=== PATIENT | female | born 2000 | race Hispanic/Latino ===

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

== ENCOUNTER 2018-01-04 21:28 | Emergency (ER) | payer MEDICAID ==
[2018-01-04 21:43] VITALS: BP 103/72
--- NOTE | 2018-01-04 22:23 | XRay Report ---
FINAL REPORT PROCEDURE: XR CHEST ROUTINE 2V TECHNIQUE: PA and lateral chest radiographs were obtained. CPT 74682 HISTORY: cough COMPARISON: No prior studies are available for comparison. FINDINGS: Heart: Normal. Mediastinum/Vessels: Normal. Lungs/Pleural space: Normal. Bony thorax: No acute osseous abnormality. Other: IMPRESSION: Normal examination.
--- NOTE | 2018-01-04 22:36 | Emergency Department Report ---
Minor Respiratory - HPI Chief Complaint: Upper Respiratory Infection Stated Complaint: FLU LIKE SYMPTOMS Time Seen by Provider: 01/04/18 22:21 Duration: 2 Days Pain Location: Nose (congestion) Severity: moderate Minor Respiratory: Yes Rhinorrhea, Yes Sore Throat, Yes Able to Tolerate Fluids , Yes Ear Pain, Yes Cough, Yes Sick Contacts, Yes Fever, No Hemoptysis, No Chest Pain, No Shortness of Breath Other History: This is a 17 y.o. female that presents with cough, fever, body aches, and congestion for 2 days. 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 She had one episode of diarrhea today, that has now resolved. She taking tylenol cold and flu medication which help for for 4 hours, then symptoms return. She decided to come in because she have 3 small children at home and didn't want to pass something to them. Denies SOB, chest pain, nausea/ vomiting, dizziness, and headache. ED Review of Systems ROS: Stated complaint: FLU LIKE SYMPTOMS Other details as noted in HPI Constitutional: chills, fever, malaise ENT: throat pain, congestion. denies: ear pain, dental pain, hearing loss, epistaxis Respiratory: cough. denies: shortness of breath, wheezing Cardiovascular: denies: chest pain, palpitations, dyspnea on exertion, edema, syncope Gastrointestinal: diarrhea (once this morning). denies: abdominal pain, nausea , vomiting Musculoskeletal: myalgia (generlized body aches). denies: back pain, joint swelling, arthralgia Neurological: denies: headache, weakness, numbness, paresthesias Psychiatric: denies: anxiety, depression ED Past Medical Hx - Past Medical History Hx Hypertension: No Hx Congestive Heart Failure: No Hx Diabetes: No Hx Deep Vein Thrombosis: No Hx Renal Disease: No Hx Sickle Cell Disease: No Hx Seizures: No Hx Asthma: No Hx COPD: No Hx HIV: No - Surgical History Past Surgical History?: No - Social History Smoking Status: Never Smoker Substance Use Type: None - Medications Home Medications: Home Medications Medication Instructions Recorded Confirmed Last Taken Type Acetaminophen [Non-Aspirin] 325 mg PO Q4HR 09/24/14 09/20/15 09/16/14 15:00 History 325mg Pnv,Calcium 72/Iron/Folic Acid 1 tab PO DAILY 09/24/14 09/20/15 09/23/14 08:00 History [Pnv Plus Multivit Tab] 1 tab Ibuprofen [Motrin 800 MG tab] 800 mg PO Q6H PRN #30 tablet 09/26/14 09/20/15 Unknown Rx oxyCODONE /ACETAMINOPHEN [Percocet 1 tab PO Q4HR #30 tablet 09/26/14 09/20/15 Unknown Rx 5/325 mg] Ibuprofen [Motrin 800 MG tab] 800 mg PO TID PRN #30 tablet 09/19/15 Unknown Rx oxyCODONE /ACETAMINOPHEN [Percocet 1 tab PO Q4HR #30 tablet 09/19/15 Unknown Rx 5/325 mg] Ibuprofen [Motrin 600 MG tab] 600 mg PO Q8H PRN #30 tablet 07/05/17 Unknown Rx Multivitamin with Iron 1 each PO DAILY #30 tablet 07/05/17 Unknown Rx [Multivitamins with Iron] oxyCODONE /ACETAMINOPHEN [Percocet 1 tab PO Q6HR PRN #30 tablet 07/05/17 Unknown Rx 5/325] Benzonatate 200 mg PO TID PRN #20 capsule 01/05/18 Unknown Rx Fluticasone [Flonase] 1 spray NS QDAY #1 bottle 01/05/18 Unknown Rx Minor Respiratory Exam - Exam General: Vital signs noted. No distress. Alert and acting appropriately. HEENT: Yes Pharyngeal Erythema, Yes Moist Mucous Membranes, Yes Rhinorrhea ( turbinates mildly congested with clear discharge), No Pharyngeal Exudates, No Conjuctival Injection, No Frontal Tenderness, No Maxillary Tenderness Ear: Neither TM Bulge, Neither TM Erythema, Neither EAC Pain, Neither EAC Discharge Neck: Yes Supple, No Adenopathy Lungs: Yes Good Air Exchange, Yes Cough, No Wheezes, No Ronchi, No Stridor, No Labored Respirations, No Retractions, No Use of Accessory Muscles, No Other Abnormal Lung Sounds Heart: Yes Regular, No Murmur Abdomen: Yes Normal Bowel Sounds, No Tenderness, No Peritoneal Signs Skin: No Rash, No Edema Neurologic: Alert and oriented, no deficits. Musculoskeletal: Unremarkable. ED Course Vital Signs 01/04/18 21:39 Temperature 99.2 F Pulse Rate 100 H Respiratory 16 Rate Blood Pressure 103/72 O2 Sat by Pulse 96 Oximetry ED Medical Decision Making - Radiology Data Radiology results: report reviewed Normal CXR. - Medical Decision Making This is a 17 y.o. female that presents with URI symptoms. Patient examined by me and stable. No distress noted. Vitals stable. CXR obtained and read by radiologist and normal. Rapid strep and flu negative. Physical findings susceptible of Nasopharyngitis. Discharged home. Encouraged to do supportive care for URI. Start flonase and benzonatate, continue OTC cold and flu medication. Follow up with PCP in 2-3 days if symptoms are not improved. Critical care attestation.: If time is entered above; I have spent that time in minutes in the direct care of this critically ill patient, excluding procedure time. ED Disposition Clinical Impression: URI (upper respiratory infection) Qualifiers: URI type: acute nasopharyngitis (common cold) Qualified Code(s): J00 - Acute nasopharyngitis [common cold] Disposition: TO HOME OR SELFCARE Is pt being admited?: No Does the pt Need Aspirin: No Condition: Stable Instructions: Upper Respiratory Infection (ED), Cold Symptoms (ED) Additional Instructions: Increase fluid intake and rest. Wash hands frequently. Continue taking tylenol or ibuprofen to control fever. F/U with Primary Care Provider in 2-3 days. Return to ER if fever, SOB, or difficulty breathing after 48 hours of supportive care. Prescriptions: Benzonatate 200 mg PO TID PRN #20 capsule PRN Reason: Cough Fluticasone [Flonase] 1 spray NS QDAY #1 bottle Referrals: MANUEL BLACK MD [Referring] - 3-5 Days [facility] [Outside] - 3-5 Days [facility] [Outside] - 3-5 Days Time of Disposition: 00:36 Print Language: CAMBODIAN
== END 2018-01-05 00:55 | disposition home or self-care (01) ==
LOC: ED 21:28
DX: J00 Acute nasopharyngitis [common cold] (principal); M79.1 Myalgia; R50.9 Fever, unspecified
CPT/HCPCS: 71046; 87116; 87400; 87430

== ENCOUNTER 2018-12-15 14:46 | Outpatient (CLI) | payer MEDICAID | END 2018-12-15 15:40 | disposition home or self-care (01) | LOC: LAB 14:46 → TRG 14:46 | PROVIDERS: ATTEND Obstetrics & Gynecology | DX: O26.893 Other specified pregnancy related conditions, third trimester (principal); Z67.41 Type O blood, Rh negative; Z3A.28 28 weeks gestation of pregnancy | CPT/HCPCS: 86850; 86900; 86901; 96372; J2790 ==

== ENCOUNTER 2019-02-27 22:40 | Outpatient (CLI) | payer MEDICAID ==
[2019-02-28 00:01] VITALS: BP 124/68
--- NOTE | 2019-02-28 11:43 | Progress Note ---
Assessment and Plan A: at 38 weeks, 5 days gestation. Not in active labor. Reactive NST. Negative SSE and negative fern test. Previous LTCS, scheduled for repeat C/S on 03/04/19. Gestational diabetes, diet controlled. P: Consulted with Dr. Horn re: this patient and informed him of all patient's complaints and results of exam. Dr. Horn gave order to discharge patient to home. Discussed with patient daily movement counting, signs of labor, warning signs of late . Pt. to keep scheduled pre-op appt. for upcoming repeat LTCS. Subjective - Subjective Date of service: 02/27/19 Principal diagnosis: at 38 5/7 weeks; leukorrhea of Interval history: 19 year old female presents to rule out labor and possible leaking of water. She states she think she "peed" on herself several hours ago. Denies any further discharge or leaking. Did not have to change a pad or change clothes. Patient denies vaginal bleeding. Patient reports active movement. Pt. reports some Gordon Patel contractions but states they do not hurt and are irregular. Pt. denies any regular contractions. Patient denies any abdominal trauma or constant abdominal pain. Patient reports intermittent lower pelvic pain in distribution of round ligaments; states it is not constant and seems to get better when she lies down. Pt. has a history of previous C/S times 3 and is scheduled for a repeat delivery this coming Saturday. Patient reports: movement normal Objective - Vital Signs Vital Signs: Vital Signs - 12hr 02/27/19 02/27/19 02/27/19 23:44 23:47 23:49 Pulse Rate 102 H 101 H 92 H Blood Pressure O2 Sat by Pulse 95 94 95 Oximetry 02/27/19 02/27/19 02/27/19 23:52 23:54 23:59 Pulse Rate 93 H 92 H 92 H Blood Pressure O2 Sat by Pulse 94 96 96 Oximetry 02/28/19 02/28/19 00:00 00:04 Pulse Rate 91 H 94 H Blood Pressure 124/68 O2 Sat by Pulse 96 Oximetry - Exam Narrative Exam: Sterile speculum exam performed: no pooling noted, no bleeding noted; thick white vaginal discharge noted; cervix appears closed and thick; fern test negative. Abdomen: Present: normal appearance, soft, other (no tenderness elicited on exam; abdomen is soft, no pain on scar during exam; fetus moving well). Absent: distention, tenderness, guarding, rigidity Uterus: Present: fundal height above umbilicus. Absent: tenderness FHR: category 1 (Reactive NST) Uterine Contraction Monitor Mode: External Cervical Dilatation: 0 Cervical Effacement Percentage: 20 station: -4 Uterine Contraction Pattern: Irregular Uterine Contraction Intensity: Mild (Brief, mild, infreqeunt contraction noted; no regular contractions noted per monitor or palpated) Extremities: normal - Labs Labs: Abnormal Labs 02/27/19 23:10 POC Glucose 126 H Laboratory Results - last 24 hr 02/27/19 23:10 POC Glucose 126 H
== END 2019-02-28 00:15 | disposition home or self-care (01) ==
LOC: TRG 22:40
PROVIDERS: ATTEND Obstetrics & Gynecology
DX: O47.1 False labor at or after 37 completed weeks of gestation (principal); O24.419 Gestational diabetes mellitus in pregnancy, unspecified control; O99.513 Diseases of the respiratory system complicating pregnancy, third trimester; J45.909 Unspecified asthma, uncomplicated; Z3A.38 38 weeks gestation of pregnancy
CPT/HCPCS: 59025; 82962

== ENCOUNTER 2019-03-04 09:07 | Inpatient (IN) | payer MEDICAID ==
[2019-03-04] MEDS: LACTATED RINGERS 1,000 ML IV SCH ×2 (09:40→11:02)
[2019-03-04 09:55] LABS: Basophils # (Auto) 0.1 K/mm3 (0.0-0.1); Basophils % (Auto) 0.5 % (0.0-1.8); Eosinophils # (Auto) 0.2 K/mm3 (0.0-0.4); Eosinophils % (Auto) 1.4 % (0.0-4.3); Hematocrit 42.3 % (30.3-42.9); Hemoglobin 14.3 gm/dl (10.1-14.3); Lymphocytes # (Auto) 3.3 K/mm3 (1.2-5.4); Lymphocytes % (Auto) 22.5 % (13.4-35.0); Mean Corpuscular HGB Conc 34 % (30-34); Mean Corpuscular Volume 85 fl (79-97); Monocytes # (Auto) 0.9 K/mm3 (0.0-0.8); Monocytes % (Auto) 6.1 % (0.0-7.3); Platelet Count 200 K/mm3 (140-440); Red Blood Count 4.96 M/mm3 (3.65-5.03); Red Cell Distribution Width 15.7 % (13.2-15.2)
[2019-03-04] MEDS ORDERED: PITOCin/NS 20 UNIT/1000ML DRIP 20 UNITS/1,000 ML BAG IV SCH ×2 (10:00→14:07)
[2019-03-04] MEDS ORDERED: BICITRA PO NR (10:00)
[2019-03-04] MEDS ORDERED: ANCEF/STERILE WATER 2 GM/20 ML 2 GM/20 ML SYRINGE IV NR (10:00)
[2019-03-04] MEDS ORDERED: REGLAN IV NR (10:00)
[2019-03-04] MEDS ORDERED: PEPCID IV NR (10:00)
[2019-03-04] MEDS ORDERED: ZOFRAN IV PRN ×2 (10:08→13:54)
[2019-03-04] MEDS ORDERED: NARCAN 0.4 MG/1 ML IV PRN ×2 (10:08→13:54)
[2019-03-04] MEDS ORDERED: MORPHINE IV PRN ×3 (10:08→13:54)
[2019-03-04] MEDS ORDERED: PHENERGAN PO PRN (10:08)
[2019-03-04] MEDS ORDERED: PHENERGAN PR PRN (10:08)
--- NOTE | 2019-03-04 10:08 | Anesthesia Consultation ---
Anesthesia Consult and Med Hx Date of service: 03/04/19 - Airway Anesthetic Teeth Evaluation: Good ROM Head & Neck: Adequate Mental/Hyoid Distance: Adequate Mallampati Class: Class II Intubation Access Assessment: Good - Pulmonary Exam CTA: Yes - Cardiac Exam Cardiac Exam: RRR - Pre-Operative Health Status ASA Pre-Surgery Classification: ASA2 Proposed Anesthetic Plan: Epidural, Spinal - Pulmonary Hx Asthma: Yes (last attack 6 yrs ago) COPD: No Hx Pneumonia: No - Cardiovascular System Hx Hypertension: No - Central Nervous System Hx Seizures: No Hx Psychiatric Problems: No - Endocrine Hx Renal Disease: No Hx End Stage Renal Disease: No Hx Non-Insulin Dependent Diabetes: Yes Hx Hypothyroidism: No Hx Hyperthyroidism: No - Hematic Hx Anemia: No Hx Sickle Cell Disease: No - Other Systems Hx Alcohol Use: No Hx Obesity: Yes
--- NOTE | 2019-03-04 10:08 | Anesthesia Day of Surgery ---
Anesthesia Day of Surgery - Day of Surgery Patient Examined: Yes Patient H&P Reviewed: Yes Patient is NPO: Yes
--- NOTE | 2019-03-04 10:47 | History and Physical Report ---
History of Present Illness Date of examination: 03/04/19 Date of admission: 03/04/19 09:07 Chief complaint: SIUP at 39 weeks and 3 days not in labor. Previous C/section x 3. Unwanted fertility. A1GDM Obesity. Rh negative type. History of present illness: Patient is a 19 year old , LMP, EDC 03/08/19 at 39 weeks and 3 days gestation who is admitted for elective repeat C/section and bilateral tubal ligation. She complains of having irregular contractions, but denies any fluid leakage or bleeding. tracing is CAT1. She has A1DGM. Her blood glucose have been controlled. Past History Past Surgical History: section Family/Genetic History: none Social history: no significant social history - Obstetrical History Expected Date of Delivery: 03/08/19 Actual Gestation: 39 Week(s) 3 Day(s) : 4 Para: 3 Number of Living Children: 3 Medications and Allergies Allergies Allergy/AdvReac Type Severity Reaction Status Date / Time No Known Allergies Allergy Verified 09/01/18 11:37 Home Medications Medication Instructions Recorded Confirmed Last Taken Type 21/Iron Fu/Folic Acid 1 each PO DAILY #30 tablet 09/01/18 Unknown Rx [ Complete Caplet] Active Meds: Active Medications Citric Acid/Sodium Citrate (Bicitra) 30 ml PO ONCE NR Stop: 03/04/19 16:00 Famotidine (Pepcid) 20 mg IV ONCE NR Stop: 03/04/19 16:00 Hydromorphone HCl (Dilaudid) 0.5 mg IV Q4H PRN PRN Reason: breakthrough pain > 7/10 Cefazolin Sodium (Ancef/Sterile Water 2 Gm/20 Ml) 2 gm in 20 mls @ 80 mls/hr IV PREOP NR; Protocol Stop: 03/04/19 16:00 Oxytocin/Sodium Chloride (Pitocin/Ns 20 Unit/1000ml Drip) 20 units in 1,000 mls @ 0 mls/hr IV TITR FUMNI Lactated Ringer's (Lactated Ringers) 1,000 mls @ 2,250 mls/hr IV PREOP FUNMI Stop: 03/05/19 10:27 Metoclopramide HCl (Reglan) 10 mg IV ONCE NR Stop: 03/04/19 16:00 Morphine Sulfate (Morphine) 2.5 mg IV Q15M PRN PRN Reason: Breakthrough Pain Stop: 03/05/19 06:00 Naloxone HCl (Narcan 0.4 Mg/1 Ml) 0.2 mg IV Q2MIN PRN PRN Reason: Res Rate </= 8 or 02 SAT < 92% Ondansetron HCl (Zofran) 4 mg IV Q8H PRN PRN Reason: Nausea And Vomiting Promethazine HCl (Phenergan) 25 mg PO Q6H PRN PRN Reason: Nausea And Vomiting Promethazine HCl (Phenergan) 25 mg FL Q6H PRN PRN Reason: Nausea And Vomiting Sodium Chloride (Sodium Chloride Flush Syringe 10 Ml) 10 ml IV PRN FUNMI - Vital Signs Vital signs: Vital Signs Pulse BP 112 H 131/76 03/04/19 09:22 03/04/19 09:22 Temp Pulse Resp BP Pulse Ox 98.4 F 95 H 18 108/71 03/04/19 09:24 03/04/19 10:23 03/04/19 09:24 03/04/19 10:23 - Physical Exam Cardiovascular: Normal S1, Normal S2 Lungs: Positive: Clear to auscultation Vulva: both: normal Adnexa: both: normal Deep Tendon Reflex Grade: Normal +2 - Obstetrical FHR: category 1 Uterine Contraction Monitor Mode: External Cervical Dilatation: 0 Cervical Effacement Percentage: 0 station: -2 Uterine Contraction Pattern: Irregular Uterine Contraction Intensity: Mild Results Result Diagrams: 03/04/19 09:40 Abnormal lab results 03/04/19 Range/Units 09:40 WBC 14.6 H (4.5-11.0) K/mm3 RDW 15.7 H (13.2-15.2) % [place] # 0.9 H (0.0-0.8) K/mm3 Seg Neutrophils # 10.2 H (1.8-7.7) K/mm3 All other labs normal. Assessment and Plan - Patient Problems (1) 39 weeks gestation of Current Visit: No Status: Acute (2) Previous delivery affecting Current Visit: Yes Status: Acute Plan to address problem: Admit to labor floor. Routine preop labs. IV hydration. Keep NPO. monitoring. Patient was counselled for repeat C/section and BTL. Risks, benefits, and alternatives of the procedure were discussed in detail with the patient which included but not limited to the risk of infection, hemorrhage requiring blood transfusion, injury to the bowel or bladder and blood vessels, risk of the tubal ligation to fail to prevent which can result in unwanted pregnancies in the future. The patient expressed understanding, her questions were answered, and she gave informed consent. Anesthesia notified. (3) Unwanted fertility Current Visit: Yes Status: Acute Plan to address problem: For BTL. (4) GDM, class A1 Current Visit: Yes Status: Acute (5) Rh negative status during Current Visit: Yes Status: Acute Plan to address problem: For rhogam. (6) Obesity Current Visit: Yes Status: Acute Qualifiers: Obesity type: due to excess calories
[2019-03-04] MEDS ORDERED: SODIUM CHLORIDE FLUSH SYRINGE 10 ML IV SCH ×2 (11:00→15:00)
[2019-03-04] MEDS ORDERED: SUBLIMAZE ONE (12:01)
[2019-03-04] MEDS ORDERED: ZOFRAN ONE (12:01)
[2019-03-04] MEDS ORDERED: NACL 0.9% IR ONE (12:25)
[2019-03-04] MEDS ORDERED: WATER FOR IRRIG STERILE IR ONE (12:25)
[2019-03-04] MEDS ORDERED: TORADOL ONE (13:08)
[2019-03-04] MEDS ORDERED: BENADRYL ONE (13:08)
[2019-03-04] MEDS ORDERED: XYLOCAINE MPF 2% ONE (13:08)
[2019-03-04] MEDS ORDERED: DILAUDID ONE (13:10)
[2019-03-04] MEDS ORDERED: LACTATED RINGERS 1,000 ML ONE (13:28)
--- NOTE | 2019-03-04 13:36 | Post Anesthesia Evaluation ---
- Post Anesthesia Evaluation Patient Participated: Yes Airway Patent: Yes Stable Respiratory Function: Yes Nausea/Vomiting: No Temp > 96.8F: Yes Pain Manageable: Yes Adequeate Hydration: Yes Anesthesia Complications: No Block Receding Appropriately: Yes Patient on Ventilator: No
[2019-03-04] MEDS ORDERED: SENOKOT PO PRN (13:54)
[2019-03-04] MEDS ORDERED: MYLICON PO PRN (13:54)
[2019-03-04] MEDS ORDERED: TYLENOL PO PRN (13:54)
[2019-03-04] MEDS ORDERED: TORADOL IV PRN (13:54)
[2019-03-04] MEDS ORDERED: MILK OF MAGNESIA PO PRN (13:54)
[2019-03-04] MEDS ORDERED: LANSINOH TP PRN (13:54)
[2019-03-04] MEDS ORDERED: TUCKS PAD TP PRN (13:54)
[2019-03-04] MEDS ORDERED: ANUCORT-HC PR PRN (13:54)
[2019-03-04] MEDS ORDERED: PERCOCET 5/325 PO PRN (13:54)
--- NOTE | 2019-03-04 14:01 | Operative Report ---
Operative Report Operative Report: Preoperative diagnosis 1. SIUP at 39 weeks and 3 days gestation not in labor. 2. Previous C/section x 3. 3. Unwanted fertility. Postoperative diagnosis: 1. SIUP at 39 weeks and 2 days gestation not in labor. 2. Previous C/section. 3. Unwanted fertility. Procedure: 1. Repeat low-transverse section. 2. Bilateral tubal ligation via P[place]oy method. Surgeon: Dr. Sunshine Supervisor [place]: none Anesthesia: spinal. IVF: RL 2 liters EBL: 500 cc Urine: 100 cc clear Complications: none. Intraoperative findings: 1. A female infant found in an MAMIE position, delivered at 12:45 PM, Apgars 8 at 1 minute and 9 at 5 minutes, weight 8 lbs. 9 oz. 2. Normal fallopian tubes and ovaries bilaterally. Procedure details: Risks, benefits, and alternatives of the procedure were discussed in detail with the patient which included but not limited to the risk of infection, hemorrhage requiring blood transfusion, injury to the bowel or bladder and blood vessels, the risks of the tubal ligation to fail to prevent which can result in unwanted pregnancies in the future. The patient expressed understanding, her questions were answered, and she gave informed consent. The patient was taken to the operating room with an IV fluid infusing Ringers lactate. In the operating room, she was placed in a sitting position and given spinal anesthesia. She was then placed in a dorsal supine position with a leftward tilt. Jose catheter in Venodyne boots were placed. The abdomen was washed and she was prepared and draped in usual sterile fashion. After confirming adequate anesthesia, the Pfannenstiel skin incision was made in the lower abdomen about 2 cm above the pubic symphysis using the scalpel. This incision was carried down to the underlying fascia using the Bovie. The fascia was opened bilaterally in a curvilinear fashion using the Bovie. 2 straight Kocker clamps were used to grasp the upper edge of the fascia from which the underlying rectus abdominis muscles was dissected off using the Bovie. A similar procedure was done with the lower edge of the fascia to dissect the underlying uterine muscle. A quick survey of the anatomy revealed a gravid uterus, normal fallopian tubes and ovaries bilaterally. A bladder flap was created. Selvin'O retractor was placed in the incision for proper visualization. A low transverse incision was made in the lower uterine segment. There was copious amount of clear amniotic fluids. The was found in an MAMIE position, the head was delivered atraumatically followed by the delivery of the shoulders and the rest of the body at 12:45 PM. The cord was clamped 2 and cut and the was handed off to the waiting die polisher. The infant was a female, Apgars were 8 at 1 minute and 9 at 5 minutes, weight was 8 pounds and 9 ounces. Cord blood was collected. The placenta was delivered manually and it was complete with a three-vessel cord. The uterine cavity was cleaned of clots and debris using dry lap sponges. The uterine incision was repaired in a running locked fashion using 0 Vicryl sutures. A second layer of imbrication was placed. The gutters were cleaned of clots and debris using dry lap sponges. The right Fallopian tube was grasped with [place] clamps and a 2-cm segment was suture ligated using 0 chromic suture. A similar procedure was done with the left Fallopian tube where a 2-cm segment was suture ligated. Both segments were sent to pathology. After confirming adequate hemostasis, the instruments were removed from the abdominal cavity. The rectus muscle was reapproximated in an interrupted fashion using 0 Vicryl sutures. The fascia was closed in a running fashion using 0 Vicryl sutures. The subcutaneous adipose tissue was closed with 2.0 chromic sutures. The skin was closed with ayleen. Sterile dressing was placed. The counts of laps, needles, sponges, and instruments were correct 2. The patt ent tolerated the procedure well, she was taken to the recovery room in a stable condition.
[2019-03-04] MEDS: DILAUDID IV PRN (17:17)
[2019-03-04] MEDS ORDERED: LACTATED RINGERS 1,000 ML IV SCH (19:00)
[2019-03-04] MEDS: TORADOL IV PRN (20:10)
[2019-03-05] MEDS: DILAUDID IV PRN (01:04)
--- NOTE | 2019-03-05 04:50 | Progress Note ---
Assessment and Plan A: POD #1 GDM A1 P: Follow Routine PostOp Orders GDM Diet Continue Accucheck as ordered Encourage increased ambulation Subjective - Subjective Date of service: 03/05/19 Patient reports: appetite normal, voiding normally, pain well controlled, flatus, ambulating normally [place]: doing well, bottle feeding (and ) Objective - Vital Signs Latest vital signs: Vital Signs Temp Pulse Resp BP BP Pulse Ox 03/05/19 00:26 98.2 F 83 20 124/80 97 03/04/19 20:37 98.2 F 71 20 138/76 97 03/04/19 20:10 18 03/04/19 15:35 98.1 F 63 18 130/84 03/04/19 14:31 98 F 77 18 114/66 100 03/04/19 14:15 67 16 135/75 100 03/04/19 14:00 68 16 133/76 100 03/04/19 13:53 63 15 123/61 100 03/04/19 13:48 68 15 122/62 100 03/04/19 13:42 66 15 122/60 100 03/04/19 13:36 66 15 139/61 100 03/04/19 13:32 98.1 F 80 12 122/61 100 03/04/19 10:23 95 H 108/71 03/04/19 09:24 98.4 F 18 03/04/19 09:22 112 H 131/76 Intake and Output 03/04/19 03/04/19 03/05/19 14:59 22:59 06:59 Intake Total 3500 600 Output Total 100 600 Balance 3400 0 Intake: IV 3500 Lactated Ringers 1,000 ml 1000 @ 2250 mls/hr IV PREOP [facility] Rx#:[id number] Oral 600 Output: Urine 100 600 Indwelling Catheter 400 Other: Total, Intake Amount 240 Total, Output Amount 400 # Voids Void 1 Weight 103.873 kg Estimated Blood Loss 500 Patient Weight 03/05/19 06:59 Weight 103.873 kg - Exam Breasts: Present: normal Cardiovascular: Present: Regular rate Lungs: Present: Clear to auscultation Abdomen: Present: normal appearance, soft Uterus: Present: normal, firm, fundal height below umbilicus Extremities: Present: normal Incision: Present: normal, dry, dressed - Labs Labs: Abnormal lab results 03/04/19 Range/Units 09:40 WBC 14.6 H (4.5-11.0) K/mm3 RDW 15.7 H (13.2-15.2) % [place] # 0.9 H (0.0-0.8) K/mm3 Seg Neutrophils # 10.2 H (1.8-7.7) K/mm3
[2019-03-05 06:12] LABS: Hematocrit 35.2 % (30.3-42.9); Hemoglobin 11.8 gm/dl (10.1-14.3)
[2019-03-05] MEDS: TORADOL IV PRN (06:31)
[2019-03-05] MEDS: FEOSOL PO SCH (11:22)
[2019-03-05] MEDS: PRENATAL VITAMIN PO SCH (11:23)
[2019-03-05] MEDS: IBUPROFEN PO PRN ×2 (14:27→20:33)
[2019-03-06] MEDS: IBUPROFEN PO PRN ×2 (04:20→09:57)
--- NOTE | 2019-03-06 07:42 | Progress Note ---
Assessment and Plan A: POD #2 s/p Repeat C/S with BTL GDM A1; Poor control. BS 99-199 Good pain control Eating, voiding and ambulating Stable P: Follow Routine PostOp Orders Encourage increased ambulation Continue GDM Diet Continue Accucheck as ordered Pt desires to be discharged home today. Co-managed with Dr. Horn d/t GDM with uncontrolled BS. MD contacted to evaluate pt d/t poor glycemic control. Subjective - Subjective Date of service: 03/06/19 Principal diagnosis: POD#2 s/p Repeat c/s with BTL; GDM A1 Interval history: See H&P and delivery note Patient reports: appetite normal, voiding normally, pain well controlled, flatus, ambulating normally, no bowel movement [place]: doing well, nursing well, bottle feeding Objective - Vital Signs Latest vital signs: Vital Signs Temp Pulse Resp BP Pulse Ox 03/06/19 00:35 98.9 F 74 20 113/67 98 03/05/19 23:55 73 88/53 96 03/05/19 16:29 98.2 F 20 132/69 03/05/19 14:27 18 03/05/19 12:57 98.6 F 20 123/68 03/05/19 10:17 74 96 03/05/19 08:22 98.4 F 20 115/71 Intake and Output 03/05/19 03/05/19 03/06/19 15:59 23:59 07:59 Intake Total 240 240 Balance 240 240 Intake: Oral 240 240 Other: Total, Intake Amount 240 240 # Voids Void 1 1 - Exam Breasts: Present: normal, Cardiovascular: Present: Regular rate, Normal S1, Normal S2, No murmurs Lungs: Present: Clear to auscultation, Normal air movement Abdomen: Present: normal appearance, soft, tenderness (as expected post-op), normal bowel sounds. Absent: distention Vulva: both: normal Uterus: Present: firm, fundal height at umbilicus Extremities: Present: normal Deep Tendon Reflex Grade: Normal +2 Incision: Present: normal (LTI, closed with ayleen, open to air, CDI, no drainage), dry, intact - Labs Labs: Abnormal lab results 03/05/19 03/05/19 03/05/19 Range/Units 12:28 18:31 21:31 POC Glucose 199 H 143 H 122 H (70-105)
[2019-03-06 07:44] VITALS: BP 125/66
[2019-03-06] MEDS: PRENATAL VITAMIN PO SCH (09:57)
[2019-03-06] MEDS: FEOSOL PO SCH (09:57)
--- NOTE | 2019-03-06 12:21 | Discharge Summary ---
Providers - Providers Date of Admission: 03/04/19 09:07 Date of discharge: 03/06/19 Attending physician: PHILL ROMERO MD Primary care physician: PHILL ROMERO MD Hospitalization Reason for admission: IUP at term Delivery: Procedure: repeat low transverse Incision: normal, dry, intact Other procedures: tubal ligation complications: none Discharge diagnosis: IUP at term delivered [place] baby: female Condition at discharge: Good Disposition: DC-01 TO HOME OR SELFCARE Plan - Discharge Medications Prescriptions: Ibuprofen [Motrin] 800 mg PO Q8HR PRN #30 tablet PRN Reason: Pain, Moderate (4-6) oxyCODONE /ACETAMINOPHEN [Percocet 5/325] 1 tab PO Q4HR #20 tab - Provider Discharge Summary Activity: routine, no sex for 6 weeks, no heavy lifting 4 weeks, no strenuous exercise Diet: routine Instructions: routine Additional instructions: [] Smoking cessation referral if applicable(refer to patient education folder for contact #) [] Refer to [facility] Booklet Call your doctor immediately for: * Fever > 100.5 * Heavy vaginal bleeding ( >1 pad per hour) * Severe persistent headache * Shortness of breath * Reddened, hot, painful area to leg or breast * Drainage or odor from incision. * Keep incision clean and dry at all times and follow doctor's instructions regarding bathing/showering Continue blood sugar logs at home for a week and bring it to the office for review. - Follow up plan Follow up: PHILL ROMERO MD [Primary Care Provider] - 7 Days
--- NOTE | 2019-03-06 12:29 | Event Note ---
Date: 03/06/19 I reviewed patient's ante blood sugar logs and they showed great contol with diet. Patient's accucheck this am was 107. Patient had no complaints and will comply happily to continue her logs upon discharge. She will bring the data into the office in 1 wk for review.
== END 2019-03-06 14:10 | disposition home or self-care (01) | DRG 766 ==
LOC: APU 09:07 → OB 15:36
PROVIDERS: ADMIT Obstetrics & Gynecology; ATTEND Obstetrics & Gynecology
PROC: 10D00Z1 Extraction of Products of Conception, Low, Open Approach (ICD-10-PCS; principal; 2019-03-04)
PROC: 0UB70ZZ Excision of Bilateral Fallopian Tubes, Open Approach (ICD-10-PCS; 2019-03-04)
DX: O34.211 Maternal care for low transverse scar from previous cesarean delivery (principal); O24.420 Gestational diabetes mellitus in childbirth, diet controlled; O99.214 Obesity complicating childbirth; Z3A.39 39 weeks gestation of pregnancy; Z37.0 Single live birth; J45.909 Unspecified asthma, uncomplicated
CPT/HCPCS: 36415; 82962; 85014; 85018; 85025; 86592; 86850; 86900; 86901; 88302; 99406; G0378; J0690; J1170; J1200; J1885; J2405; J2590; J2765; J3010; J7120

== ENCOUNTER 2021-12-26 17:08 | Emergency (ER) | payer MEDICAID ==
[2021-12-26 17:24] VITALS: BP 116/76
== END 2021-12-26 22:34 | disposition left against medical advice (07) ==
LOC: ED 17:08
DX: R10.30 Lower abdominal pain, unspecified (principal); R50.9 Fever, unspecified; Z53.21 Procedure and treatment not carried out due to patient leaving prior to being seen by health care provider

== ENCOUNTER 2021-12-27 08:03 | Inpatient (IN) | payer MEDICAID ==
[2021-12-27] MEDS ORDERED: SODIUM CHLORIDE 0.9% 1000 ML IV SOLN IV ONE (08:26)
[2021-12-27] MEDS ORDERED: ONDANSETRON 4 MG/2 ML INJ IV ONE (09:31)
[2021-12-27] MEDS ORDERED: KETOROLAC 30 MG/1 ML INJ IV ONE (09:31)
--- NOTE | 2021-12-27 09:37 | Emergency Department Report ---
ED Abdominal Pain HPI - General Chief Complaint: Abdominal Pain Stated Complaint: LOW ABD PAIN /CHILLS/NAUSEA Time Seen by Provider: 12/27/21 09:19 Source: patient Mode of arrival: Ambulatory Limitations: No Limitations - History of Present Illness Initial Comments: 21-year-old female who presents with suprapubic tenderness that started 2 days ago progressively getting worse. Patient recently have appendectomy and cholecystectomy done December 10 and has some complication including abscess. Because of the complication patient was admitted to the hospital for 4 days post procedure. Patient reported that she has been doing well after the discharge u ntil 2 days ago when she started having pain again in the suprapubic area. Patient says she was discharged home on Naprosyn and Percocet but she has not been taking the Percocet because they make her sick to her stomach. Last bowel movement was yesterday and was diarrhea. She also mentioned fever at home. Patient temperature in the emergency room was 100.1 degree Fahrenheit. Patient reports nausea with no emesis. When asked patient denies any shortness of breath, chest pain or palpitation. No other modifying or positive factors reported. - Related Data Home Medications Medication Instructions Recorded Confirmed Last Taken metFORMIN [Glucophage] 500 mg PO BID 12/28/21 12/28/21 Unknown Previous Rx's Medication Instructions Recorded Last Taken Type oxyCODONE /ACETAMINOPHEN [Percocet 1 tab PO Q6H PRN 3 Days #12 tablet 12/15/21 Unknown Rx 5/325 mg] Allergies Allergy/AdvReac Type Severity Reaction Status Date / Time No Known Allergies Allergy Verified 12/27/21 09:42 ED Review of Systems ROS: Stated complaint: LOW ABD PAIN /CHILLS/NAUSEA Other details as noted in HPI Comment: All other systems reviewed and negative Gastrointestinal: abdominal pain, nausea. denies: vomiting ED Past Medical Hx - Past Medical History Hx Hypertension: No Hx Congestive Heart Failure: No Hx Diabetes: No Hx Deep Vein Thrombosis: No Hx Liver Disease: Yes (gallstones) Hx Renal Disease: No Hx Sickle Cell Disease: No Hx Seizures: No Hx Asthma: No Hx COPD: No Hx HIV: No - Surgical History Additional Surgical History: X4, appendectomy and gall bleadder removal on 12/11/21 - Social History Smoking Status: Current Every Day Smoker - Medications Home Medications: Home Medications Medication Instructions Recorded Confirmed Last Taken Type oxyCODONE /ACETAMINOPHEN [Percocet 1 tab PO Q6H PRN 3 Days #12 tablet 12/15/21 12/28/21 Unknown Rx 5/325 mg] metFORMIN [Glucophage] 500 mg PO BID 12/28/21 12/28/21 Unknown History ED Physical Exam - General Limitations: No Limitations General appearance: alert, in no apparent distress - Head Head exam: Present: normal inspection - Eye Eye exam: Present: normal appearance Pupils: Present: normal accommodation - ENT ENT exam: Present: normal exam, normal orophraynx, mucous membranes moist - Neck Neck exam: Present: normal inspection, full ROM - Respiratory Respiratory exam: Present: normal lung sounds bilaterally. Absent: respiratory distress, accessory muscle use - Cardiovascular Cardiovascular Exam: Present: regular rate, normal rhythm, normal heart sounds - GI/Abdominal GI/Abdominal exam: Present: soft, tenderness (Suprapubic tenderness to palpation), normal bowel sounds, other (Surgical site with no sign of erythema or warmth or infection) - Extremities Exam Extremities exam: Present: normal inspection, normal capillary refill. Absent: tenderness, pedal edema - Back Exam Back exam: Present: normal inspection - Neurological Exam Neurological exam: Present: alert, oriented X3 - Skin Skin exam: Present: warm, normal color ED Course Vital Signs 12/27/21 12/27/21 12/27/21 08:20 08:47 09:01 Temperature 100.3 F H Pulse Rate 114 H 121 H Respiratory 16 15 Rate Blood Pressure 127/84 Blood Pressure [113] O2 Sat by Pulse 100 98 98 Oximetry 12/27/21 12/27/21 12/27/21 09:15 09:31 09:39 Temperature 100.1 F H Pulse Rate 120 H 111 H 113 H Respiratory 29 H 32 H 18 Rate Blood Pressure Blood Pressure 131/82 [113] O2 Sat by Pulse 98 97 97 Oximetry 12/27/21 12/27/21 12/27/21 09:45 10:21 10:30 Temperature Pulse Rate 109 H 103 H Respiratory 26 H 17 Rate Blood Pressure 113/65 Blood Pressure [113] O2 Sat by Pulse 97 98 98 Oximetry 12/27/21 12/27/21 12/27/21 10:45 11:09 11:15 Temperature Pulse Rate 98 H 97 H 97 H Respiratory 23 28 H 24 Rate Blood Pressure 114/61 106/58 104/60 Blood Pressure [113] O2 Sat by Pulse 97 96 100 Oximetry 12/27/21 12/27/21 12/27/21 11:30 11:45 12:00 Temperature Pulse Rate 91 H 96 H 93 H Respiratory 30 H 25 H 21 Rate Blood Pressure 110/65 106/53 103/59 Blood Pressure [113] O2 Sat by Pulse 99 98 98 Oximetry 12/27/21 12/27/21 12/27/21 12:15 12:30 12:45 Temperature Pulse Rate 94 H 88 89 Respiratory 13 21 23 Rate Blood Pressure 108/60 108/58 123/63 Blood Pressure [113] O2 Sat by Pulse 97 98 100 Oximetry 12/27/21 12/27/21 12/27/21 13:00 13:15 15:29 Temperature Pulse Rate 90 92 H 109 H Respiratory 19 13 10 L Rate Blood Pressure 129/88 130/83 130/83 Blood Pressure [113] O2 Sat by Pulse 100 99 Oximetry 12/27/21 12/27/21 12/27/21 15:31 15:45 16:01 Temperature Pulse Rate 107 H 97 H 101 H Respiratory 22 29 H 37 H Rate Blood Pressure 121/76 107/41 122/56 Blood Pressure [113] O2 Sat by Pulse 98 99 96 Oximetry 12/27/21 12/27/21 12/27/21 16:15 16:31 16:45 Temperature Pulse Rate 97 H 106 H 102 H Respiratory 34 H 22 24 Rate Blood Pressure 111/55 117/56 110/56 Blood Pressure [113] O2 Sat by Pulse 96 98 97 Oximetry 12/27/21 12/27/21 12/27/21 17:23 17:31 17:45 Temperature Pulse Rate 96 H 102 H 96 H Respiratory 12 17 31 H Rate Blood Pressure 110/56 110/56 110/56 Blood Pressure [113] O2 Sat by Pulse 97 98 97 Oximetry 12/27/21 12/27/21 12/27/21 18:01 18:15 18:31 Temperature Pulse Rate 104 H 107 H 102 H Respiratory 27 H 23 32 H Rate Blood Pressure 110/56 110/56 110/56 Blood Pressure [113] O2 Sat by Pulse 95 97 96 Oximetry 12/27/21 12/27/21 12/27/21 18:45 19:01 19:26 Temperature Pulse Rate 105 H 106 H Respiratory 34 H 29 H Rate Blood Pressure 110/56 110/56 120/69 Blood Pressure [113] O2 Sat by Pulse 95 94 Oximetry 12/27/21 12/27/21 12/27/21 19:30 19:31 19:41 Temperature 100.5 F H Pulse Rate 107 H Respiratory 18 Rate Blood Pressure 120/69 120/69 Blood Pressure 120/69 [113] O2 Sat by Pulse 98 97 96 Oximetry - Reevaluation(s) Reevaluation #1: 12/27/21 09:39 Here with postop abdominal pain with fever--with concern for postop abscess--we will go ahead and order CBC, CMP, lactic acid, blood culture for any electrolyte or infectious process, normal saline for hydration. Given Toradol 30 IV and Zofran 4 mg for symptoms relief. Reevaluation #2: 12/27/21 15:03 CT abd/pel noted with right lower quadrant/pelvic abscess--I paged Dr. Chris Crews clinic at [phone] and spoke with his nurse and also called his phone at [phone]. Dr Crews called back and wanted patient admitted to hospitalist and for IR to be consulted for abscess drainage. Pt signed out to Dr Gonzalez ED Medical Decision Making - Lab Data Result diagrams: 12/27/21 08:26 12/27/21 16:39 Critical care attestation.: If time is entered above; I have spent that time in minutes in the direct care of this critically ill patient, excluding procedure time. ED Disposition Clinical Impression: Postoperative abdominal pain with fever Disposition: 09 ADMITTED INPATIENT Is pt being admited?: Yes Does the pt Need Aspirin: No Condition: Stable
[2021-12-27 10:17] LABS: Basophils % (Auto) 0.3 % (0.0-1.8); Eosinophils % (Auto) 0.3 % (0.0-4.3); Hemoglobin 19.7 gm/dl (10.1-14.3); Lymphocytes # (Auto) 1.9 K/mm3 (1.2-5.4); Lymphocytes % (Auto) 21.4 % (13.4-35.0); Mean Corpuscular HGB Conc 34 % (30-34); Mean Corpuscular Volume 85 fl (79-97); Monocytes # (Auto) 0.7 K/mm3 (0.0-0.8); Monocytes % (Auto) 7.5 % (0.0-7.3); Red Blood Count 6.89 M/mm3 (3.65-5.03); Red Cell Distribution Width 14.7 % (13.2-15.2)
[2021-12-27 10:47] LABS: Platelet Count 175 K/mm3 (140-440)
[2021-12-27 11:50] LABS: Bacteria,Urine 1+ /HPF (Negative); Bilirubin,Urine NEG (Negative); Blood,Urine SM (Negative); Color,Urine Yellow (Yellow); Mucus,Urine FEW /HPF; Urobilinogen,Urine < 2.0 mg/dL (<2.0)
[2021-12-27 13:03] LABS: HCG Qualitative,Urine Negative (Negative)
[2021-12-27] MEDS ORDERED: fentaNYL 100 MCG/2 ML INJ IV ONE (14:23)
--- NOTE | 2021-12-27 14:26 | Cat Scan Report ---
CT abdomen pelvis w con INDICATION / CLINICAL INFORMATION: abdominal pain post op 100 ML OMNI 300. TECHNIQUE: Axial CT images were obtained through the abdomen and pelvis after 100 cc of Omnipaque [address] scans at this location are performed using CT dose reduction for ALARA by means of automated exposure control. COMPARISON: CT dated 12/13/2021 FINDINGS: LOWER CHEST: No significant abnormality LIVER: Unchanged steatosis. GALLBLADDER/BILIARY TREE: Gallbladder surgically absent. No inflammatory stranding, fluid, or fluid c ollection in the operative bed. Bile ducts are normal. PANCREAS: No significant abnormality SPLEEN: No significant abnormality. ADRENALS: No significant abnormality RIGHT KIDNEY / URETER: Tiny renal cysts. No acute abnormality. LEFT KIDNEY / URETER: Small renal cysts. No acute abnormality. URINARY BLADDER: No significant abnormality REPRODUCTIVE ORGANS: No significant abnormality STOMACH / BOWEL: No acute abnormality. Appendix is absent. Peripheral enhancing fluid collections det jax below. LYMPH NODES: No significant adenopathy. VASCULATURE: No significant abnormality. OTHER: Peripherally enhancing fluid and gas collection in the cul-de-sac appears slightly enlarged, n ow measuring 6.8 x 4.3 cm; previously 6.6 x 3.1 cm. Peripherally enhancing fluid and gas collection i n the appendectomy bed measures 4 x 2.8 cm; previously 4.8 x 3 cm. This is again noted to extend betw een the rectus muscles anteriorly with collection measuring 4.8 x 3.8 cm; previously 4.5 x 3.0 cm. No new collection. No free air. SKELETAL SYSTEM: No acute osseous findings. IMPRESSION: Right lower quadrant/pelvic abscesses are overall similar in size compared to prior CT from 12/13/2021 , described above. No significant interval change from prior study. Signer Name: Donta Shelton MD Signed: 12/27/2021 2:21 PM Workstation Name: [id number]
--- NOTE | 2021-12-27 16:10 | Event Note ---
Date: 12/27/21 21-year-old female with pelvic fluid collection previously sampled and found to be serous with some sanguinous components. Fluid collection is smaller. Request for drainage. Made patient n.p.o. after midnight except sips of water with meds. Possible CT- guided drainage tomorrow based on examination.
--- NOTE | 2021-12-27 16:11 | History and Physical Report ---
History of Present Illness Chief complaint: My stomach hurts History of present illness: 21 YO Female with DM, Nicotine Dependence, Symptomatic Cholelithiasis S/P Lac bipin/appendectomy on 12/10 presents to ED for evaluation. Patient reports "my stomach hurts". Patient states that she has experienced pain and discomfort in her lower abdomen over the past 2 days with persistent and worsening symptoms over the same timeframe. Patient states that pain is 6/10, constant, located in the suprapubic area, nonradiating. Patient transported to [facility] via private vehicle for further care and evaluation of the aforementioned symptoms. The patient was seen and evaluated in the emergency department. All lab and imaging studies reviewed. Patient with CT scan of the abdomen and pelvis and was found to have an intra-abdominal abscess. Patient admitted to medical floor due to increased risk of worsening symptoms. Interventional radiology team consulted in ED. Surgical team consulted in ED. Patient denies fever, chills, chest pain, palpitation, productive cough, skin rash, recent contact, ingestion of food/water from new or different sources, or known exposure to COVID-19. Prior admission on 11/2721 reviewed. All medication listed at time of admission has been reconciled. Advanced care planning conducted in ED. Past History Past Medical History: diabetes, other (See HPI) Past Surgical History: appendectomy, cholecystectomy Social history: single, smoking. denies: alcohol abuse, prescription drug abuse Family history: diabetes, hypertension Medications and Allergies Allergies Allergy/AdvReac Type Severity Reaction Status Date / Time No Known Allergies Allergy Verified 12/27/21 09:42 Home Medications Medication Instructions Recorded Confirmed Last Taken Type 21/Iron Fu/Folic Acid 1 each PO DAILY #30 tablet 09/01/18 12/11/21 03/03/19 18:00 Rx [ Complete Caplet] Multivitamin 1 each PO QDAY 12/11/21 12/11/21 Unknown History Ibuprofen [Motrin 800 MG tab] 800 mg PO Q8H PRN 5 Days #15 tablet 12/15/21 Unknown Rx metFORMIN XR [Glucophage XR] 500 mg PO QDAY 30 Days #49 tab 12/15/21 Unknown Rx oxyCODONE /ACETAMINOPHEN [Percocet 1 tab PO Q6H PRN 3 Days #12 tablet 12/15/21 Unknown Rx 5/325 mg] Review of Systems Constitutional: no weight loss, no weight gain, no fever, no chills Ears, nose, mouth and throat: no ear pain, no nose pain, no nasal congestion Cardiovascular: no chest pain, no orthopnea, no palpitations, no edema, no syncope Respiratory: no cough, no cough with sputum, no excessive sputum, no hemoptysis Gastrointestinal: abdominal pain, no nausea, no diarrhea, no change in bowel habits, no hematemesis Genitourinary Female: no pelvic pain, no flank pain, no dysuria, no urinary frequency, no urgency Rectal: no pain, no incontinence, no bleeding Musculoskeletal: no neck stiffness, no neck pain, no shooting leg pain Integumentary: no rash, no pruritis, no redness, no sores, no wounds Neurological: no head injury, no paralysis, no parathesias, no numbness Psychiatric: no anxiety, no change in sleep habits, no sleep disturbances, no insomnia, no change in appetite, no change in libido, no suicidal ideation Endocrine: no cold intolerance, no heat intolerance, no excessive thirst, no polydipsia Hematologic/Lymphatic: no easy bruising, no easy bleeding Allergic/Immunologic: no urticaria, no allergic rhinitis, no wheezing Exam - Constitutional Vitals: Temp Pulse Resp BP Pulse Ox 100.1 F H 113 H 18 131/82 97 12/27/21 09:39 12/27/21 09:39 12/27/21 09:39 12/27/21 09:39 12/27/21 09:39 General appearance: Present: mild distress, obese - EENT Eyes: Present: PERRL ENT: hearing intact, clear oral mucosa - Neck Neck: Present: supple, normal ROM - Respiratory Respiratory effort: normal Respiratory: bilateral: CTA - Cardiovascular Heart Sounds: Present: S1 & S2. Absent: rub, click - Extremities Extremities: pulses symmetrical, No edema Peripheral Pulses: within normal limits - Abdominal General gastrointestinal: Present: soft, tender, normal bowel sounds Localized gastrointestinal: tender: suprapubic Female genitourinary: Present: normal - Integumentary Integumentary: Present: clear, warm, dry - Musculoskeletal Musculoskeletal: gait normal, strength equal bilaterally - Psychiatric Psychiatric: appropriate mood/affect, intact judgment & insight - Neurologic Neurologic: CNII-XII intact, moves all extremities Results - Labs CBC & Chem 7: 12/27/21 08:26 Labs: Abnormal lab results 12/27/21 12/27/21 Range/Units 08:26 Unknown RBC 6.89 H (3.65-5.03) M/mm3 Hgb 19.7 H (10.1-14.3) gm/dl Hct 61.0 H* (30.3-42.9) % [place] % (Auto) 7.5 H (0.0-7.3) % Seg Neutrophils % 70.5 H (40.0-70.0) % Urine WBC (Auto) 11.0 H (0.0-6.0) /HPF U Epithel Cells (Auto) 17.0 H (0-13.0) /HPF Assessment and Plan - Patient Problems (1) Intra-abdominal abscess Current Visit: Yes Status: Acute Plan to address problem: Serial abdominal exam, CT scan abdomen and pelvis, IV antibiotic therapy, interventional radiology team consulted, surgical team consulted, pain control, supportive care. IV fluid resuscitation therapy, bowel rest. (2) Obesity hypoventilation syndrome Current Visit: Yes Status: Acute Plan to address problem: Balanced diet, increase physical activity discharge, outpatient pulmonary follow-up for sleep study. (3) Diabetes mellitus Current Visit: Yes Status: Acute Plan to address problem: Consistent carbohydrate diet, Accu-Chek, hypoglycemia protocol, insulin protocol. (4) Metabolic syndrome Current Visit: Yes Status: Acute Plan to address problem: Balanced diet, low-cholesterol diet, increase physical activity discharge. Risk factor reduction. (5) DVT prophylaxis Current Visit: Yes Status: Acute Plan to address problem: SCD to bilateral lower extremities while in bed (6) Advance care planning Current Visit: Yes Status: Acute Plan to address problem: Disease education conducted, care plan discussed, diagnoses discussed, prognosis discussed, patient is full code. Patient acknowledges understanding and agreement with care plan, +30 minutes.
--- NOTE | 2021-12-27 16:22 | Event Note ---
Date: 12/27/21 Patient was signed out to me by Spoke with Dr. Lee interventional radiologist he will place a drain in for the patient also spoke with Dr. Hernandez general surgeon who will follow along with the patient. Spoke with Dr. Wang hospitalist will admit the patient to the hospital. Critical care time done by patient 1 hour.
[2021-12-27] MEDS: ONDANSETRON 4 MG/2 ML INJ IV PRN (17:16)
[2021-12-27] MEDS: HYDROmorphone 1 MG/1 ML INJ IV PRN (17:20)
[2021-12-27] MEDS: MULTIVITAMINS ,THERAPEUTIC TAB PO SCH (18:00)
[2021-12-27 18:21] LABS: Alanine Aminotransferase 11 units/L (7-56); Albumin 2.9 g/dL (3.9-5); Blood Urea Nitrogen 7 mg/dL (7-17); Hemolysis Index 11
[2021-12-27 18:27] LABS: BUN/Creatinine Ratio 12
[2021-12-27] MEDS ORDERED: ALBUTEROL 2.5 MG/3 ML NEBU IH PRN (20:00)
[2021-12-27] MEDS: SODIUM CHLORIDE 0.9% 1000 ML 1,000 ML IV SCH (21:47)
[2021-12-28] MEDS: HYDROmorphone 1 MG/1 ML INJ IV PRN ×3 (02:24→19:08)
[2021-12-28] MEDS: ONDANSETRON 4 MG/2 ML INJ IV PRN ×3 (02:28→19:08)
[2021-12-28] MEDS: SODIUM CHLORIDE 0.9% 1000 ML 1,000 ML IV SCH ×2 (07:10→12:51)
--- NOTE | 2021-12-28 08:33 | Progress Note ---
Assessment and Plan - Patient Problems (1) Intra-abdominal abscess Current Visit: Yes Status: Acute Plan to address problem: At present pain fairly well controlled. Awaiting surgical intervention and consultation. IV fluid resuscitation and supportive care. Serial abdominal exam, CT scan abdomen and pelvis, complete (2) Obesity hypoventilation syndrome Current Visit: Yes Status: Acute Plan to address problem: Balanced diet, increase physical activity discharge, outpatient pulmonary follow-up for sleep study. (3) Diabetes mellitus Current Visit: Yes Status: Acute Plan to address problem: At present fairly well controlled Accu-Chek 127 and 150 Consistent carbohydrate diet, Accu-Chek, hypoglycemia protocol, insulin protocol. (4) Metabolic syndrome Current Visit: Yes Status: Acute Plan to address problem: Balanced diet, low-cholesterol diet, increase physical activity discharge. Risk factor reduction. (5) DVT prophylaxis Current Visit: Yes Status: Acute Plan to address problem: SCD to bilateral lower extremities while in bed (6) Advance care planning Current Visit: Yes Status: Acute Plan to address problem: Disease education conducted, care plan discussed, diagnoses discussed, prognosis discussed, patient is full code. Patient acknowledges understanding and agreeme nt with care plan, Subjective Date of service: 12/28/21 Principal diagnosis: Intra-abdominal abscess Interval history: Patient 21-year-old female with history of diabetes nicotine dependence cholelithiasis status post lap bipin. Begin to have left lower quadrant pain and decided to come to the hospital for further evaluation. CT abdomen showed intramuscular abscess. Patient at present pain fairly well controlled. Accu- Chek 150 patient is currently afebrile. Objective - Constitutional Vitals: Vital Signs - 12hr 12/28/21 04:49 Temperature 98.6 F Pulse Rate 109 H Respiratory 18 Rate Blood Pressure 120/72 O2 Sat by Pulse 93 Oximetry General appearance: Present: no acute distress, well-nourished - EENT Eyes: PERRL, EOM intact ENT: hearing intact, clear oral mucosa Ears: bilateral: normal - Neck Neck: supple, normal ROM - Respiratory Respiratory effort: normal Respiratory: bilateral: CTA - Breasts Breasts: normal - Cardiovascular Rhythm: regular Heart Sounds: Present: S1 & S2. Absent: gallop, rub Extremities: pulses intact, No edema, normal color Extremity abnormal: other (Tenderness around right lower abdominal area.) - Gastrointestinal General gastrointestinal: Present: soft, non-tender, non-distended, normal bowel sounds - Genitourinary Female genitourinary: normal - Integumentary Integumentary: clear, warm, dry - Musculoskeletal Musculoskeletal: 1, strength equal bilaterally - Neurologic Neurologic: moves all extremities - Psychiatric Psychiatric: memory intact, appropriate mood/affect, intact judgment & insight - Labs CBC & Chem 7: 12/27/21 08:26 12/27/21 16:39 Labs: Abnormal lab results 12/27/21 12/27/21 12/27/21 Range/Units 08:26 16:39 Unknown RBC 6.89 H (3.65-5.03) M/mm3 Hgb 19.7 H (10.1-14.3) gm/dl Hct 61.0 H* (30.3-42.9) % [place] % (Auto) 7.5 H (0.0-7.3) % Seg Neutrophils % 70.5 H (40.0-70.0) % Sodium 136 L (137-145) mmol/L Carbon Dioxide 20 L (22-30) mmol/L Glucose 124 H (65-100) mg/dL POC Glucose (70-105) mg/dL Calcium 8.0 L (8.4-10.2) mg/dL Albumin 2.9 L (3.9-5) g/dL Urine WBC (Auto) 11.0 H (0.0-6.0) /HPF U Epithel Cells (Auto) 17.0 H (0-13.0) /HPF 12/28/21 Range/Units 07:26 RBC (3.65-5.03) M/mm3 Hgb (10.1-14.3) gm/dl Hct (30.3-42.9) % [place] % (Auto) (0.0-7.3) % Seg Neutrophils % (40.0-70.0) % Sodium (137-145) mmol/L Carbon Dioxide (22-30) mmol/L Glucose (65-100) mg/dL POC Glucose 150 H (70-105) mg/dL Calcium (8.4-10.2) mg/dL Albumin (3.9-5) g/dL Urine WBC (Auto) (0.0-6.0) /HPF U Epithel Cells (Auto) (0-13.0) /HPF
[2021-12-28] MEDS ORDERED: fentaNYL 100 MCG/2 ML INJ IV SCH (09:00)
[2021-12-28] MEDS ORDERED: MIDAZOLAM 5 MG/5 ML INJ MDV IV SCH (09:00)
[2021-12-28] MEDS: MULTIVITAMINS ,THERAPEUTIC TAB PO SCH (09:35)
[2021-12-28] MEDS ORDERED: NON-FORMULARY EACH (Multivitamin [Multivitamin] 1 EACH Tablet) PO SCH (10:00)
--- NOTE | 2021-12-28 14:36 | Operative Report ---
Operative Report Operative Report: Exam: CT-guided placement of 10 Bangladeshi drainage catheter in abdominal fluid collection Clinical indication: Patient with a history of prior abdominal surgery with fluid collections in the surgical bed extending to the anterior abdominal wall with fever Date: 12/28/2021 Procedure: Following an explanation of the risks, benefits and alternatives; written informed consent was obtained. The patient was brought to the CT suite and resistor tester images of the abdomen and pelvis were performed. The fluid collection extending from the appendiceal surgical bed extends into an anterior abdominal wall fluid collection and an appropriate access site was chosen. The patient's lower abdomen was prepped and draped in the usual sterile fashion. 1% lidocaine was used for anesthesia. Using intermittent CT guidance, a 15 cm 18-gauge trocar needle was advanced into the central aspect of the fluid collection. There is prompt return of purulent brown fluid. A sample was sent for laboratory analysis. A 0.035 guidewire was advanced and coiled within the fluid collection. The needle was removed and following serial dilation over the guidewire a 10 Bangladeshi drainage catheter was advanced over the guidewire to position the pigtail within the central to more dependent portion of the fluid collection. A total of 40 mL of purulent fluid was aspirated. The catheter was securely fastened to the skin surface using 2-0 silk suture and stay fix device. The catheter was then placed to TAMARA bulb drainage. A sterile dressing was applied. The patient tolerated the procedure well. There were no immediate postprocedure complications. Conscious sedation was performed under the guidance of radiologic nursing. Continuous cardiopulmonary monitoring is utilized. Impression: CT-guided placement of 10 Bangladeshi drainage catheter and abdominal fluid collection that communicates with the appendiceal surgical bed. There was prompt return of brownish purulent fluid and a sample sent for laboratory analysis following the aspiration of 40 mL of fluid.
--- NOTE | 2021-12-28 18:27 | Consultation ---
History of Present Illness Consult date: 12/28/21 Reason for consult: abdominal pain - History of present illness History of present illness: 21 yo female s/p laparoscopic cholecystectomy and laparoscopic appendectomy on 12/10/21 for pre-op CT findings of acute cholecystitis and acute appendicitis. Operative findings were significant for a non-inflamed gallbladder and an appendix that appeared inflamed and edematous. Indeed, the appendix even tore during the appendectomy with spillage of a small amount of purulent fluid into the RLQ. Post-operatively, the pt had low grade fevers and tachycardia with a post-operative CT abdomen & pelvis revealing pelvic and RLQ fluid collections c/w abscesses. One of the fluid collections was drained by IR on 12/14/21 but subsequent C&S revealed no growth. Pt was then discharged in improved condition. I saw the pt in my office last week and she appeared to be doing well. Since her office visit, she has developed fevers and increasing lower abdominal pain for which she presented to the ED for evaluation. Past History Past Medical History: diabetes, other (See HPI) Past Surgical History: appendectomy, cholecystectomy Social history: single, smoking. denies: alcohol abuse, prescription drug abuse Family history: diabetes, hypertension Medications and Allergies Allergies Allergy/AdvReac Type Severity Reaction Status Date / Time No Known Allergies Allergy Verified 12/27/21 09:42 Home Medications Medication Instructions Recorded Confirmed Last Taken Type oxyCODONE /ACETAMINOPHEN [Percocet 1 tab PO Q6H PRN 3 Days #12 tablet 12/15/21 12/28/21 Unknown Rx 5/325 mg] metFORMIN [Glucophage] 500 mg PO BID 12/28/21 12/28/21 Unknown History Active Meds: Active Medications Acetaminophen (Acetaminophen 325 Mg Tab) 650 mg PO Q4H PRN PRN Reason: Pain MILD(1-3)/Fever >100.5/ZAPATA Albuterol (Albuterol 2.5 Mg/3 Ml Nebu) 2.5 mg IH Q4HRT PRN PRN Reason: Shortness Of Breath Hydromorphone HCl (Hydromorphone 1 Mg/1 Ml Inj) 0.5 mg IV Q8H PRN PRN Reason: Pain , Severe (7-10) Last Admin: 12/28/21 10:17 Dose: 0.5 mg Sodium Chloride (Nacl 0.9% 1000 Ml) 1,000 mls @ 125 mls/hr IV DIRECT [facility] Last Admin: 12/28/21 12:51 Dose: 125 mls/hr Levofloxacin/Dextrose (Levaquin 500mg/100ml) 500 mg in 100 mls @ 100 mls/hr IV Q24H [facility]; Protocol Last Admin: 12/27/21 21:46 Dose: 100 mls/hr Morphine Sulfate (Morphine 2 Mg/1 Ml Inj) 2 mg IV Q4H PRN PRN Reason: Pain, Moderate (4-6) Multivitamins (Multivitamins ,Therapeutic Tab) 1 each PO DAILY [facility] Last Admin: 12/28/21 09:35 Dose: Not Given Ondansetron HCl (Ondansetron 4 Mg/2 Ml Inj) 4 mg IV Q8H PRN PRN Reason: Nausea And Vomiting Last Admin: 12/28/21 10:17 Dose: 4 mg Sodium Chloride (Sodium Chloride 0.9% 10 Ml Flush Syringe) 10 ml IV BID [facility] Last Admin: 12/28/21 09:36 Dose: 10 ml Sodium Chloride (Sodium Chloride 0.9% 10 Ml Flush Syringe) 10 ml IV PRN PRN PRN Reason: LINE FLUSH Review of Systems All systems: negative (none) Exam Vital Signs Temp Pulse Resp BP Pulse Ox 100.3 F H 114 H 16 127/84 100 12/27/21 08:20 12/27/21 08:20 12/27/21 08:20 12/27/21 08:20 12/27/21 08:20 - General physical appearance Positive: well developed, well nourished, no distress - Eyes Positive: PERRL, normal occular movement - ENT Positive: normal pinna, normal nares, normal mucosa, no hearing loss, no congestion - Neck Positive: no masses, no bruits, trachea midline, no venous distension - Respiratory Positive: normal expansion, normal respiratory effort, clear to auscultation - Cardiovascular Rhythm: regular Heart Sounds: Present: S1 & S2. Absent: rub, click - Extremities Extremities: no ischemia, pulses symmetrical, No edema - Breasts Breasts: normal, no mass, no skin changes - Abdomen Abdomen: Present: soft, tender (Mild TTP in the suprapubic area.), bowel sounds normal, other (Mild TTP in the suprapubic area. The TAMARA drain contains a moderate amount of brown-purulent fluid.). Absent: distended, rebound, guarding Hernia: none - Genitourinary Male Genitourinary: normal Female Genitourinary: normal - Integumentary no rash, no growths, no abnormal pigmentation - Neurologic Neurologic: alert and oriented to time, place and person, motor strength and sensation are grossly intact - Musculoskeletal normal gait, normal posture - Psychiatric Psychiatric: appropriate mood/affect, intact judgment & insight Results - Labs 12/27/21 08:26 12/27/21 16:39 Abnormal lab results 12/27/21 12/28/21 12/28/21 Range/Units 16:39 07:26 10:44 Sodium 136 L (137-145) mmol/L Carbon Dioxide 20 L (22-30) mmol/L Glucose 124 H (65-100) mg/dL POC Glucose 150 H 141 H (70-105) mg/dL Calcium 8.0 L (8.4-10.2) mg/dL Albumin 2.9 L (3.9-5) g/dL 12/28/21 Range/Units 16:07 Sodium (137-145) mmol/L Carbon Dioxide (22-30) mmol/L Glucose (65-100) mg/dL POC Glucose 124 H (70-105) mg/dL Calcium (8.4-10.2) mg/dL Albumin (3.9-5) g/dL Diabetes panel 12/27/21 Range/Units 16:39 Sodium 136 L (137-145) mmol/L Potassium 4.1 (3.6-5.0) mmol/L Chloride 103.1 (98-107) mmol/L Carbon Dioxide 20 L (22-30) mmol/L BUN 7 (7-17) mg/dL Creatinine 0.6 (0.6-1.2) mg/dL Glucose 124 H (65-100) mg/dL Calcium 8.0 L (8.4-10.2) mg/dL AST 14 (5-40) units/L ALT 11 (7-56) units/L Alkaline Phosphatase 80 (35-129) units/L Total Protein 7.0 (6.3-8.2) g/dL Albumin 2.9 L (3.9-5) g/dL Calcium panel 12/27/21 Range/Units 16:39 Calcium 8.0 L (8.4-10.2) mg/dL Albumin 2.9 L (3.9-5) g/dL Pituitary panel 12/27/21 Range/Units 16:39 Sodium 136 L (137-145) mmol/L Potassium 4.1 (3.6-5.0) mmol/L Chloride 103.1 (98-107) mmol/L Carbon Dioxide 20 L (22-30) mmol/L BUN 7 (7-17) mg/dL Creatinine 0.6 (0.6-1.2) mg/dL Glucose 124 H (65-100) mg/dL Calcium 8.0 L (8.4-10.2) mg/dL Adrenal panel 12/27/21 Range/Units 16:39 Sodium 136 L (137-145) mmol/L Potassium 4.1 (3.6-5.0) mmol/L Chloride 103.1 (98-107) mmol/L Carbon Dioxide 20 L (22-30) mmol/L BUN 7 (7-17) mg/dL Creatinine 0.6 (0.6-1.2) mg/dL Glucose 124 H (65-100) mg/dL Calcium 8.0 L (8.4-10.2) mg/dL Total Bilirubin 0.40 (0.1-1.2) mg/dL AST 14 (5-40) units/L ALT 11 (7-56) units/L Alkaline Phosphatase 80 (35-129) units/L Total Protein 7.0 (6.3-8.2) g/dL Albumin 2.9 L (3.9-5) g/dL - Imaging CT scan - abdomen: report reviewed CT scan - pelvis: report reviewed Additional studies: Dr. Bailey's IR report was also read. Assessment and Plan - Patient Problems (1) Intra-abdominal abscess Current Visit: Yes Status: Acute Plan to address problem: 1) Awaiting C&S from fluid collected today. 2) Continue broad spectrum IV antibiotics 3) Ambulate 4) I will be out of town tomorrow. Please call me at [phone] if any questions develop. 5) CBC and BMP tomorrow
[2021-12-28] MEDS: metroNIDAZOLE/NS 1000 MG-200ML 1,000 MG in EMPTY BAG 0 ML IV SCH (20:57)
[2021-12-28] MEDS: ACETAMINOPHEN 325 MG TAB PO PRN (21:09)
[2021-12-28] MEDS: INSULIN LISPRO 100 UNIT/ML SUB-Q SCH ×2 (21:58→22:00)
[2021-12-29] MEDS: MORPHINE 2 MG/1 ML INJ IV PRN ×2 (00:23→17:24)
[2021-12-29] MEDS: SODIUM CHLORIDE 0.9% 1000 ML 1,000 ML IV SCH ×3 (00:23→20:26)
[2021-12-29] MEDS: metroNIDAZOLE/NS 1000 MG-200ML 1,000 MG in EMPTY BAG 0 ML IV SCH ×2 (03:06→10:21)
[2021-12-29] MEDS: HYDROmorphone 1 MG/1 ML INJ IV PRN ×3 (03:18→20:19)
[2021-12-29] MEDS: ONDANSETRON 4 MG/2 ML INJ IV PRN ×3 (03:18→20:20)
[2021-12-29 07:17] LABS: Basophils # (Auto) 0.1 K/mm3 (0.0-0.1); Basophils % (Auto) 0.4 % (0.0-1.8); Eosinophils % (Auto) 0.3 % (0.0-4.3); Hematocrit 32.3 % (30.3-42.9); Hemoglobin 10.7 gm/dl (10.1-14.3); Lymphocytes # (Auto) 2.4 K/mm3 (1.2-5.4); Lymphocytes % (Auto) 17.2 % (13.4-35.0); Mean Corpuscular HGB Conc 33 % (30-34); Mean Corpuscular Volume 83 fl (79-97); Monocytes # (Auto) 1.4 K/mm3 (0.0-0.8); Monocytes % (Auto) 9.9 % (0.0-7.3); Platelet Count 320 K/mm3 (140-440); Red Blood Count 3.87 M/mm3 (3.65-5.03); Red Cell Distribution Width 14.1 % (13.2-15.2)
[2021-12-29] MEDS: INSULIN LISPRO 100 UNIT/ML SUB-Q SCH ×4 (07:30→21:41)
[2021-12-29 07:33] LABS: Blood Urea Nitrogen 4 mg/dL (7-17); Calcium 8.2 mg/dL (8.4-10.2); Hemolysis Index 0
[2021-12-29 07:34] LABS: BUN/Creatinine Ratio 7
[2021-12-29] MEDS: MULTIVITAMINS ,THERAPEUTIC TAB PO SCH (09:28)
--- NOTE | 2021-12-29 11:16 | Consultation ---
History of Present Illness - Reason for Consult Consult date: 12/29/21 intra-abdominal abscess Requesting physician: DORA AN - History of Present Illness The patient is a 21-year-old female with morbid obesity who underwent a laparoscopic cholecystectomy and laparoscopic appendectomy on 12/10/2021, intraoperatively had a tear of the appendix with purulence in RLQ and postoperative course complicated by low-grade fevers, RLQ fluid abscess status post IR drainage on 12/14/2021 was doing well until recently she started developing fever increasing abdominal pain. She presented to the emergency room on 12/27/2021, CT abdomen and pelvis revealed intra-abdominal fluid collections with enhancement and gas. IR was consulted and patient underwent another drain placement on 12/28/2021. Infectious diseases was consulted for antibiotic management. She had a fever of 102.9 F last night. Currently is receiving levofloxacin and Flagyl. Review of Systems: General: fever HEENT: no new visual disturbance Respiratory: No cough, sputum, hemoptysis or shortness of breath Cardiovascular: No chest pain, syncope Gastrointestinal: abdominal pain Genitourinary: No dysuria or hematuria Musculoskeletal: No new or worsening neck pain or back pain Neurologic: No headaches, seizures Hematologic: No easy bruising or bleeding Endocrine: No night sweats or acute weight loss Skin: negative for rash, jaundice Psychiatric: No suicidal or homicidal ideation Past History Past Medical History: diabetes, other (See HPI) Past Surgical History: appendectomy, cholecystectomy Social history: single, smoking. denies: alcohol abuse, prescription drug abuse Family history: diabetes, hypertension Medications and Allergies Allergies Allergy/AdvReac Type Severity Reaction Status Date / Time No Known Allergies Allergy Verified 12/27/21 09:42 Home Medications Medication Instructions Recorded Confirmed Last Taken Type oxyCODONE /ACETAMINOPHEN [Percocet 1 tab PO Q6H PRN 3 Days #12 tablet 12/15/21 12/28/21 Unknown Rx 5/325 mg] metFORMIN [Glucophage] 500 mg PO BID 12/28/21 12/28/21 Unknown History Active Meds: Active Medications Acetaminophen (Acetaminophen 325 Mg Tab) 650 mg PO Q4H PRN PRN Reason: Pain MILD(1-3)/Fever >100.5/ZAPATA Last Admin: 12/28/21 21:09 Dose: 650 mg Albuterol (Albuterol 2.5 Mg/3 Ml Nebu) 2.5 mg IH Q4HRT PRN PRN Reason: Shortness Of Breath Hydromorphone HCl (Hydromorphone 1 Mg/1 Ml Inj) 0.5 mg IV Q8H PRN PRN Reason: Pain , Severe (7-10) Last Admin: 12/29/21 03:18 Dose: 0.5 mg Sodium Chloride (Nacl 0.9% 1000 Ml) 1,000 mls @ 125 mls/hr IV DIRECT [facility] Last Admin: 12/29/21 09:31 Dose: 125 mls/hr Piperacillin Sod/Tazobactam Sod (Zosyn/Ns 4.5gm/100ml) 4.5 gm in 100 mls @ 200 mls/hr IV Q6H [facility]; Protocol Fluconazole (Diflucan) 200 mls @ 100 mls/hr IV Q24H [facility]; Protocol Insulin Human Lispro (Insulin Lispro 100 Unit/Ml) 0 unit SUB-Q ACHS [facility]; Protocol Last Admin: 12/29/21 07:30 Dose: Not Given Morphine Sulfate (Morphine 2 Mg/1 Ml Inj) 2 mg IV Q4H PRN PRN Reason: Pain, Moderate (4-6) Last Admin: 12/29/21 00:23 Dose: 2 mg Multivitamins (Multivitamins ,Therapeutic Tab) 1 each PO DAILY [facility] Last Admin: 12/29/21 09:28 Dose: 1 each Ondansetron HCl (Ondansetron 4 Mg/2 Ml Inj) 4 mg IV Q8H PRN PRN Reason: Nausea And Vomiting Last Admin: 12/29/21 03:18 Dose: 4 mg Sodium Chloride (Sodium Chloride 0.9% 10 Ml Flush Syringe) 10 ml IV BID [facility] Last Admin: 12/29/21 09:27 Dose: 10 ml Sodium Chloride (Sodium Chloride 0.9% 10 Ml Flush Syringe) 10 ml IV PRN PRN PRN Reason: LINE FLUSH Physical Examination - Physical Exam Narrative exam: Physical Exam: Constitutional: Alert, cooperative. No acute distress Head, Ears, Nose: Normocephalic, atraumatic. External ears, nose normal Eyes: Conjunctivae/corneas clear. No icterus. No ptosis. Neck: Supple, no meningeal signs Cardiovascular: S1, S2 + Respiratory: Good air entry, clear to auscultation bilaterally GI: Soft, mild R sided tenderness; bowel sounds normal. No peritoneal signs. Drain + Musculoskeletal: No pedal edema, no cyanosis. Skin: No rash or abscess Hem/Lymphatic: No palpable cervical or supraclavicular nodes. No lymphangitis Psych: Mood ok. Affect normal Neurological: Awake, alert, oriented. No gross abnormality - Constitutional Vitals: Vital Signs Temp Pulse Resp BP Pulse Ox 98.9 F 108 H 16 107/69 97 12/29/21 04:13 12/29/21 04:13 12/29/21 04:13 12/29/21 04:13 12/29/21 09:38 Temperature -Last 24 Hours Temperature 98.9 F Temperature 102.9 F Results - Labs CBC & Chem 7: 12/29/21 06:43 12/29/21 06:43 Labs: Abnormal lab results 12/28/21 12/28/21 12/28/21 Range/Units 10:44 16:07 21:14 WBC (4.5-11.0) K/mm3 Curry % (Auto) (0.0-7.3) % Curry # (Auto) (0.0-0.8) K/mm3 Seg Neutrophils % (40.0-70.0) % Seg Neutrophils # (1.8-7.7) K/mm3 Sodium (137-145) mmol/L BUN (7-17) mg/dL Glucose (65-100) mg/dL POC Glucose 141 H 124 H 186 H (70-105) mg/dL Calcium (8.4-10.2) mg/dL 12/29/21 12/29/21 12/29/21 Range/Units 06:43 06:43 08:14 WBC 13.9 H (4.5-11.0) K/mm3 Curry % (Auto) 9.9 H (0.0-7.3) % Curry # (Auto) 1.4 H (0.0-0.8) K/mm3 Seg Neutrophils % 72.2 H (40.0-70.0) % Seg Neutrophils # 10.0 H (1.8-7.7) K/mm3 Sodium 133 L (137-145) mmol/L BUN 4 L (7-17) mg/dL Glucose 178 H (65-100) mg/dL POC Glucose 151 H (70-105) mg/dL Calcium 8.2 L (8.4-10.2) mg/dL - Imaging and Cardiology CT scan - abdomen: report reviewed, image reviewed (intra-abdominal fluid collection) Assessment and Plan Cultures: 12/27/2021 blood culture: No growth 12/27/2021 urine culture: Mixed ludwin 12/28/2021 IR drain culture: GNR A/P: 21-year-old female with morbid obesity who underwent a laparoscopic cholecyst ectomy and laparoscopic appendectomy on 12/10/2021, intraoperatively had a tear of the appendix with purulence in RLQ and postoperative course complicated by low-grade fevers, RLQ fluid abscess status post IR drainage on 12/14/2021 was doing well until recently she started developing fever increasing abdominal pain, now with: #Sepsis, secondary to intra-abdominal abscess: s/p laparoscopic cholecystectomy and laparoscopic appendectomy on 12/10/2021, drain placement by IR on 12/14/2021. Now s/p IR drain placement 12/28/2021. CT showed enhancing fluid collection with gas in the cul-de-sac, appendectomy bed and extension between rectus muscles anteriorly. #Obesity #Diabetes mellitus Recs: -Antibiotics switched to IV Zosyn plus fluconazole -Follow-up IR drainage cultures -Monitor drain output -Drain management per surgery and IR -consider repeat interval CT prior to removing drains Eden Buenrostro MD, FACP, [facility] O: [phone] F: [phone] C: [phone]
[2021-12-29] MEDS: PIPERACIL/TAZOBACTA 4.5/NS 100 4.5 GM/100 ML VIAL IV SCH ×2 (12:41→17:24)
--- NOTE | 2021-12-29 12:51 | Progress Note ---
Assessment and Plan Assessment and plan: The patient is a 21-year-old female with morbid obesity who underwent a laparoscopic cholecystectomy and laparoscopic appendectomy on 12/10/2021, intraoperatively had a tear of the appendix with purulence in RLQ and postoperative course complicated by low-grade fevers, RLQ fluid abscess status post IR drainage on 12/14/2021 was doing well until recently she started developing fever increasing abdominal pain. She presented to the emergency room on 12/27/2021, CT abdomen and pelvis revealed intra-abdominal fluid collections with enhancement and gas. IR was consulted and patient underwent another drain placement on 12/28/2021. Infectious diseases was consulted for antibiotic management. Sepsis Intra-abdominal abscess Obesity Diabetes mellitus type 2 12/29/2021. ID switched antibiotics to IV Zosyn and fluconazole. We will follow-up IR drainage cultures. Continue to monitor drain output. Surgery/IR following for drain management. Consider repeat CT scan. History Interval history: No new issues overnight. Hospitalist Physical - Constitutional Vitals: Temp Pulse Resp BP Pulse Ox 98.9 F 108 H 16 107/69 97 12/29/21 04:13 12/29/21 04:13 12/29/21 04:13 12/29/21 04:13 12/29/21 09:38 General appearance: Present: no acute distress, well-nourished - EENT Eyes: Present: PERRL, EOM intact ENT: hearing intact, clear oral mucosa, dentition normal - Neck Neck: Present: supple, normal ROM - Respiratory Respiratory effort: normal Respiratory: bilateral: CTA - Cardiovascular Rhythm: regular Heart Sounds: Present: S1 & S2. Absent: gallop, rub - Extremities Extremities: no ischemia, No edema, Full ROM - Abdominal General gastrointestinal: soft, non-tender, non-distended, normal bowel sounds - Integumentary Integumentary: Present: clear, warm, dry - Neurologic Neurologic: CNII-XII intact, moves all extremities Results - Labs CBC & Chem 7: 12/29/21 06:43 12/29/21 06:43 Labs: Laboratory Last Values WBC 13.9 K/mm3 (4.5-11.0) H 12/29/21 06:43 RBC 3.87 M/mm3 (3.65-5.03) 12/29/21 06:43 Hgb 10.7 gm/dl (10.1-14.3) D 12/29/21 06:43 Hct 32.3 % (30.3-42.9) D 12/29/21 06:43 MCV 83 fl (79-97) 12/29/21 06:43 MCH 28 pg (28-32) 12/29/21 06:43 MCHC 33 % (30-34) 12/29/21 06:43 RDW 14.1 % (13.2-15.2) 12/29/21 06:43 Plt Count 320 K/mm3 (140-440) 12/29/21 06:43 Lymph % (Auto) 17.2 % (13.4-35.0) 12/29/21 06:43 [place] % (Auto) 9.9 % (0.0-7.3) H 12/29/21 06:43 Eos % (Auto) 0.3 % (0.0-4.3) 12/29/21 06:43 Baso % (Auto) 0.4 % (0.0-1.8) 12/29/21 06:43 Lymph # (Auto) 2.4 K/mm3 (1.2-5.4) 12/29/21 06:43 [place] # (Auto) 1.4 K/mm3 (0.0-0.8) H 12/29/21 06:43 Eos # (Auto) 0.0 K/mm3 (0.0-0.4) 12/29/21 06:43 Baso # (Auto) 0.1 K/mm3 (0.0-0.1) 12/29/21 06:43 Seg Neutrophils % 72.2 % (40.0-70.0) H 12/29/21 06:43 Seg Neutrophils # 10.0 K/mm3 (1.8-7.7) H 12/29/21 06:43 Sodium 133 mmol/L (137-145) L 12/29/21 06:43 Potassium 3.6 mmol/L (3.6-5.0) 12/29/21 06:43 Chloride 98.1 mmol/L (98-107) 12/29/21 06:43 Carbon Dioxide 23 mmol/L (22-30) 12/29/21 06:43 Anion Gap 16 mmol/L 12/29/21 06:43 BUN 4 mg/dL (7-17) L 12/29/21 06:43 Creatinine 0.6 mg/dL (0.6-1.2) 12/29/21 06:43 Estimated GFR > 60 ml/min 12/29/21 06:43 BUN/Creatinine Ratio 7 % 12/29/21 06:43 Glucose 178 mg/dL (65-100) H 12/29/21 06:43 POC Glucose 151 mg/dL (70-105) H 12/29/21 08:14 Lactic Acid 1.80 mmol/L (0.7-2.0) 12/27/21 10:10 Calcium 8.2 mg/dL (8.4-10.2) L 12/29/21 06:43 Total Bilirubin 0.40 mg/dL (0.1-1.2) 12/27/21 16:39 AST 14 units/L (5-40) 12/27/21 16:39 ALT 11 units/L (7-56) 12/27/21 16:39 Alkaline Phosphatase 80 units/L (35-129) 12/27/21 16:39 Total Protein 7.0 g/dL (6.3-8.2) 12/27/21 16:39 Albumin 2.9 g/dL (3.9-5) L 12/27/21 16:39 Albumin/Globulin Ratio 0.7 % 12/27/21 16:39 Urine Color Yellow (Yellow) 12/27/21 Unknown Urine Turbidity Hazy (Clear) 12/27/21 Unknown Urine pH 6.0 (5.0-7.0) 12/27/21 Unknown Ur Specific [place] 1.018 (1.003-1.030) 12/27/21 Unknown Urine Protein 30 mg/dl mg/dL (Negative) 12/27/21 Unknown Urine Glucose (UA) Neg mg/dL (Negative) 12/27/21 Unknown Urine Ketones Tr mg/dL (Negative) 12/27/21 Unknown Urine Blood Sm (Negative) 12/27/21 Unknown Urine Nitrite Neg (Negative) 12/27/21 Unknown Urine Bilirubin Neg (Negative) 12/27/21 Unknown Urine Urobilinogen < 2.0 mg/dL (<2.0) 12/27/21 Unknown Ur Leukocyte Esterase Mod (Negative) 12/27/21 Unknown Urine WBC (Auto) 11.0 /HPF (0.0-6.0) H 12/27/21 Unknown Urine RBC (Auto) 2.0 /HPF (0.0-6.0) 12/27/21 Unknown U Epithel Cells (Auto) 17.0 /HPF (0-13.0) H 12/27/21 Unknown Urine Bacteria (Auto) 1+ /HPF (Negative) 12/27/21 Unknown Urine Mucus Few /HPF 12/27/21 Unknown Urine HCG, Qual Negative (Negative) 12/27/21 11:50 Microbiology: Microbiology 12/27/21 10:27 Peripheral/Venous Blood Culture - Preliminary NO GROWTH AFTER 48 HOURS 12/27/21 10:27 Peripheral/Venous Blood Culture - Preliminary NO GROWTH AFTER 48 HOURS 12/28/21 14:50 Abdomen Surgical Culture - Preliminary Gram Negative Viral 12/27/21 Unknown Urine,Clean Catch Urine Culture - Final Jose/IV: Voiding Method Toilet Active Medications - Current Medications Current Medications: Generic Name Dose Route Start Last Admin Trade Name Freq PRN Reason Stop Dose Admin Acetaminophen 650 mg 12/27/21 17:00 12/28/21 21:09 Acetaminophen 325 Mg Tab PO 650 mg Q4H PRN Administration Pain MILD(1-3)/Fever >100.5/ZAPATA Albuterol 2.5 mg 12/27/21 20:00 Albuterol 2.5 Mg/3 Ml Nebu IH Q4HRT PRN Shortness Of Breath Hydromorphone HCl 0.5 mg 12/27/21 17:00 12/29/21 11:27 Hydromorphone 1 Mg/1 Ml Inj IV 0.5 mg Q8H PRN Administration Pain , Severe (7-10) Sodium Chloride 1,000 mls @ 125 mls/hr 12/27/21 16:30 12/29/21 09:31 Nacl 0.9% 1000 Ml IV 125 mls/hr DIRECT FUNMI Administration Piperacillin Sod/Tazobactam Sod 4.5 gm in 100 mls @ 200 mls/hr 12/29/21 12:00 12/29/21 12:41 Zosyn/Ns 4.5gm/100ml IV 200 mls/hr Q6HR FUNMI Administration Protocol Fluconazole 200 mls @ 100 mls/hr 12/29/21 12:00 Diflucan IV Q24HR FUNMI Protocol Insulin Human Lispro 0 unit 12/28/21 22:00 12/29/21 11:30 Insulin Lispro 100 Unit/Ml SUB-Q 2 unit ACHS FUNMI Administration Protocol Morphine Sulfate 2 mg 12/27/21 17:00 12/29/21 00:23 Morphine 2 Mg/1 Ml Inj IV 2 mg Q4H PRN Administration Pain, Moderate (4-6) Multivitamins 1 each 12/27/21 18:00 12/29/21 09:28 Multivitamins ,Therapeutic Tab PO 1 each DAILY FUNMI Administration Ondansetron HCl 4 mg 12/27/21 17:00 12/29/21 11:27 Ondansetron 4 Mg/2 Ml Inj IV 4 mg Q8H PRN Administration Nausea And Vomiting Sodium Chloride 10 ml 12/27/21 22:00 12/29/21 09:27 Sodium Chloride 0.9% 10 Ml Flush Syringe IV 10 ml BID FUNMI Administration Sodium Chloride 10 ml 12/27/21 17:00 Sodium Chloride 0.9% 10 Ml Flush Syringe IV PRN PRN LINE FLUSH Nutrition/Malnutrition Assess - Dietary Evaluation Nutrition/Malnutrition Findings: Nutrition Notes Start: 12/28/21 11:07 Freq: Status: Active Protocol: Document 12/28/21 11:07 KIP (Rec: 12/28/21 11:30 KIP [id number]) Nutrition Notes Need for Assessment generated from: clinical informatics physician,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 Current Diet NPO (since12/28 00:01). Labs/Tests 12/27: Na 136, CO2 20, Glu 124 , Ca 8.0. Pertinent Medications 12/28: Multivitamins, others nutritionally unremarkable. Height 5 ft 5 in Weight 102.05 kg [place] Body Weight (kg) 56.81 BMI 37.4 Intake Prior to Admission Poor Weight change and time frame Pt states hving loss, unintentionally, between 2 and 13 lb recently. Weight Status Obese Subjective/Other Information RD consult for risk of malnutrition assessment. Pt currently on NPO. Procedure: CT-guided drainage, planned for 12/28, according to Event note. Pt on Room Air, O2 saturation @ 97%, according to Physical Assessment History notes. Pt is s/p Cholecystectomy/ Appendectomy on 12/10/2021. Pt states having loss, unintentionally, between 2 and 13 lb recently, likelly associated with cholelithiasis and appendicitis conditions from last month, and subsequent surgical intervention. Pt shows no signs of concern for risk of malnutrition at the time, according to Physical Assessment History notes. Percent of energy/protein needs met: Pt currently on NPO. Burn Absent Trauma Absent GI Symptoms Other Food Allergy No Skin Integrity/Comment Surgical wound. Current % PO Other Minimum of two criteria No #1 Nutrition Diagnosis No nutrition diagnosis at this time Comments: Will assess Pt's PO intake of meals at F/U. Is patient on ventilator? No Is Patient Ambulatory and/or Out of Bed Yes REE-([place]-ambulatory/OOB) [ 2309.294 NUTR.MSJOOB] Kcal/Kg value to use for calculation 15 Approximate Energy Requirements Using 1531 kcal/Kg Calculation Used for Recommendations Kcal/kg Additional Notes Protein: 0.8-1 g/Kg AdjBW; 64- 80 g/day. Fluids: 1 ml/Kcal, or as per MD. Nutrition Intervention Follow-Up By: 01/01/22 Additional Comments When pertinent, start monitoring food tolerance, %PO intake of meals, and BM.
[2021-12-29] MEDS: FLUCONAZOLE 400 MG 200 ML IV SCH (13:26)
[2021-12-29] MEDS: metFORMIN 500 MG TAB PO SCH (17:24)
[2021-12-29] MEDS: ACETAMINOPHEN 325 MG TAB PO PRN (21:39)
[2021-12-30] MEDS: PIPERACIL/TAZOBACTA 4.5/NS 100 4.5 GM/100 ML VIAL IV SCH ×4 (00:15→17:49)
[2021-12-30] MEDS: MORPHINE 2 MG/1 ML INJ IV PRN ×3 (01:23→23:31)
[2021-12-30] MEDS: SODIUM CHLORIDE 0.9% 1000 ML 1,000 ML IV SCH ×2 (05:55→20:25)
[2021-12-30] MEDS: ONDANSETRON 4 MG/2 ML INJ IV PRN ×3 (06:09→20:26)
[2021-12-30] MEDS: HYDROmorphone 1 MG/1 ML INJ IV PRN ×3 (06:09→20:25)
[2021-12-30 07:27] LABS: Basophils % (Auto) 0.4 % (0.0-1.8); Eosinophils # (Auto) 0.1 K/mm3 (0.0-0.4); Eosinophils % (Auto) 1.2 % (0.0-4.3); Hematocrit 32.7 % (30.3-42.9); Hemoglobin 10.5 gm/dl (10.1-14.3); Lymphocytes # (Auto) 2.2 K/mm3 (1.2-5.4); Lymphocytes % (Auto) 18.6 % (13.4-35.0); Mean Corpuscular HGB Conc 32 % (30-34); Mean Corpuscular Volume 85 fl (79-97); Monocytes % (Auto) 8.6 % (0.0-7.3); Platelet Count 297 K/mm3 (140-440); Red Blood Count 3.83 M/mm3 (3.65-5.03); Red Cell Distribution Width 14.1 % (13.2-15.2)
[2021-12-30] MEDS: INSULIN LISPRO 100 UNIT/ML SUB-Q SCH ×4 (07:30→22:52)
[2021-12-30] MEDS: metFORMIN 500 MG TAB PO SCH ×2 (08:33→17:49)
[2021-12-30] MEDS: MULTIVITAMINS ,THERAPEUTIC TAB PO SCH ×2 (08:33→11:46)
[2021-12-30] MEDS: FLUCONAZOLE 400 MG 200 ML IV SCH ×2 (08:33→11:48)
[2021-12-30 08:38] LABS: Blood Urea Nitrogen 5 mg/dL (7-17); Calcium 8.7 mg/dL (8.4-10.2); Hemolysis Index 0
[2021-12-30 08:40] LABS: BUN/Creatinine Ratio 8
--- NOTE | 2021-12-30 11:10 | Progress Note ---
Assessment and Plan Assessment and plan: The patient is a 21-year-old female with morbid obesity who underwent a laparoscopic cholecystectomy and laparoscopic appendectomy on 12/10/2021, intraoperatively had a tear of the appendix with purulence in RLQ and postoperative course complicated by low-grade fevers, RLQ fluid abscess status post IR drainage on 12/14/2021 was doing well until recently she started developing fever increasing abdominal pain. She presented to the emergency room on 12/27/2021, CT abdomen and pelvis revealed intra-abdominal fluid collections with enhancement and gas. IR was consulted and patient underwent another drain placement on 12/28/2021. Infectious diseases was consulted for antibiotic management. Sepsis Intra-abdominal abscess Obesity Diabetes mellitus type 2 12/29/2021. ID switched antibiotics to IV Zosyn and fluconazole. We will follow-up IR drainage cultures. Continue to monitor drain output. Surgery/IR following for drain management. Consider repeat CT scan. 12/30/2021. Continue IV antibiotics per ID recommendations. Follow-up cultures. Follow-up CBC/BMP History Interval history: No new issues overnight. Hospitalist Physical - Constitutional Vitals: Temp Pulse Resp BP Pulse Ox 98.0 F 79 18 111/72 95 12/30/21 03:31 12/30/21 03:31 12/30/21 06:38 12/30/21 03:31 12/30/21 09:57 General appearance: Present: no acute distress, well-nourished - EENT Eyes: Present: PERRL, EOM intact ENT: hearing intact, clear oral mucosa, dentition normal - Neck Neck: Present: supple, normal ROM - Respiratory Respiratory effort: normal Respiratory: bilateral: CTA - Cardiovascular Rhythm: regular Heart Sounds: Present: S1 & S2. Absent: gallop, rub - Extremities Extremities: no ischemia, No edema, Full ROM - Abdominal General gastrointestinal: soft, non-tender, non-distended, normal bowel sounds - Integumentary Integumentary: Present: clear, warm, dry - Neurologic Neurologic: CNII-XII intact, moves all extremities Results - Labs CBC & Chem 7: 12/30/21 06:08 12/30/21 06:08 Labs: Laboratory Last Values WBC 11.7 K/mm3 (4.5-11.0) H 12/30/21 06:08 RBC 3.83 M/mm3 (3.65-5.03) 12/30/21 06:08 Hgb 10.5 gm/dl (10.1-14.3) 12/30/21 06:08 Hct 32.7 % (30.3-42.9) 12/30/21 06:08 MCV 85 fl (79-97) 12/30/21 06:08 MCH 27 pg (28-32) L 12/30/21 06:08 MCHC 32 % (30-34) 12/30/21 06:08 RDW 14.1 % (13.2-15.2) 12/30/21 06:08 Plt Count 297 K/mm3 (140-440) 12/30/21 06:08 Lymph % (Auto) 18.6 % (13.4-35.0) 12/30/21 06:08 [place] % (Auto) 8.6 % (0.0-7.3) H 12/30/21 06:08 Eos % (Auto) 1.2 % (0.0-4.3) 12/30/21 06:08 Baso % (Auto) 0.4 % (0.0-1.8) 12/30/21 06:08 Lymph # (Auto) 2.2 K/mm3 (1.2-5.4) 12/30/21 06:08 [place] # (Auto) 1.0 K/mm3 (0.0-0.8) H 12/30/21 06:08 Eos # (Auto) 0.1 K/mm3 (0.0-0.4) 12/30/21 06:08 Baso # (Auto) 0.0 K/mm3 (0.0-0.1) 12/30/21 06:08 Seg Neutrophils % 71.2 % (40.0-70.0) H 12/30/21 06:08 Seg Neutrophils # 8.3 K/mm3 (1.8-7.7) H 12/30/21 06:08 Sodium 137 mmol/L (137-145) 12/30/21 06:08 Potassium 3.4 mmol/L (3.6-5.0) L 12/30/21 06:08 Chloride 100.0 mmol/L (98-107) 12/30/21 06:08 Carbon Dioxide 24 mmol/L (22-30) 12/30/21 06:08 Anion Gap 16 mmol/L 12/30/21 06:08 BUN 5 mg/dL (7-17) L 12/30/21 06:08 Creatinine 0.6 mg/dL (0.6-1.2) 12/30/21 06:08 Estimated GFR > 60 ml/min 12/30/21 06:08 BUN/Creatinine Ratio 8 % 12/30/21 06:08 Glucose 200 mg/dL (65-100) H 12/30/21 06:08 POC Glucose 174 mg/dL (70-105) H 12/30/21 07:39 Lactic Acid 1.80 mmol/L (0.7-2.0) 12/27/21 10:10 Calcium 8.7 mg/dL (8.4-10.2) 12/30/21 06:08 Total Bilirubin 0.40 mg/dL (0.1-1.2) 12/27/21 16:39 AST 14 units/L (5-40) 12/27/21 16:39 ALT 11 units/L (7-56) 12/27/21 16:39 Alkaline Phosphatase 80 units/L (35-129) 12/27/21 16:39 Total Protein 7.0 g/dL (6.3-8.2) 12/27/21 16:39 Albumin 2.9 g/dL (3.9-5) L 12/27/21 16:39 Albumin/Globulin Ratio 0.7 % 12/27/21 16:39 Urine Color Yellow (Yellow) 12/27/21 Unknown Urine Turbidity Hazy (Clear) 12/27/21 Unknown Urine pH 6.0 (5.0-7.0) 12/27/21 Unknown Ur Specific [place] 1.018 (1.003-1.030) 12/27/21 Unknown Urine Protein 30 mg/dl mg/dL (Negative) 12/27/21 Unknown Urine Glucose (UA) Neg mg/dL (Negative) 12/27/21 Unknown Urine Ketones Tr mg/dL (Negative) 12/27/21 Unknown Urine Blood Sm (Negative) 12/27/21 Unknown Urine Nitrite Neg (Negative) 12/27/21 Unknown Urine Bilirubin Neg (Negative) 12/27/21 Unknown Urine Urobilinogen < 2.0 mg/dL (<2.0) 12/27/21 Unknown Ur Leukocyte Esterase Mod (Negative) 12/27/21 Unknown Urine WBC (Auto) 11.0 /HPF (0.0-6.0) H 12/27/21 Unknown Urine RBC (Auto) 2.0 /HPF (0.0-6.0) 12/27/21 Unknown U Epithel Cells (Auto) 17.0 /HPF (0-13.0) H 12/27/21 Unknown Urine Bacteria (Auto) 1+ /HPF (Negative) 12/27/21 Unknown Urine Mucus Few /HPF 12/27/21 Unknown Urine HCG, Qual Negative (Negative) 12/27/21 11:50 Microbiology: Microbiology 12/27/21 10:27 Peripheral/Venous Blood Culture - Preliminary NO GROWTH AFTER 48 HOURS 12/27/21 10:27 Peripheral/Venous Blood Culture - Preliminary NO GROWTH AFTER 48 HOURS 12/28/21 14:50 Abdomen Surgical Culture - Preliminary Gram Negative Viral 12/27/21 Unknown Urine,Clean Catch Urine Culture - Final Jose/IV: Voiding Method Toilet Active Medications - Current Medications Current Medications: Generic Name Dose Route Start Last Admin Trade Name Freq PRN Reason Stop Dose Admin Acetaminophen 650 mg 12/27/21 17:00 12/29/21 21:39 Acetaminophen 325 Mg Tab PO 650 mg Q4H PRN Administration Pain MILD(1-3)/Fever >100.5/ZAPATA Albuterol 2.5 mg 12/27/21 20:00 Albuterol 2.5 Mg/3 Ml Nebu IH Q4HRT PRN Shortness Of Breath Hydromorphone HCl 0.5 mg 12/27/21 17:00 12/30/21 06:09 Hydromorphone 1 Mg/1 Ml Inj IV 0.5 mg Q8H PRN Administration Pain , Severe (7-10) Sodium Chloride 1,000 mls @ 125 mls/hr 12/27/21 16:30 12/30/21 05:55 Nacl 0.9% 1000 Ml IV 125 mls/hr DIRECT FUNMI Administration Piperacillin Sod/Tazobactam Sod 4.5 gm in 100 mls @ 200 mls/hr 12/29/21 12:00 12/30/21 05:55 Zosyn/Ns 4.5gm/100ml IV 200 mls/hr Q6HR FUNMI Administration Protocol Fluconazole 200 mls @ 100 mls/hr 12/29/21 12:00 12/30/21 08:33 Diflucan IV 100 mls/hr Q24HR FUNMI Administration Protocol Insulin Human Lispro 0 unit 12/28/21 22:00 12/29/21 21:41 Insulin Lispro 100 Unit/Ml SUB-Q Not Given ACHS [facility] Protocol Metformin HCl 500 mg 12/29/21 17:00 12/30/21 08:33 Metformin 500 Mg Tab PO 500 mg BIDDIAB FUNMI Administration Morphine Sulfate 2 mg 12/27/21 17:00 12/30/21 01:23 Morphine 2 Mg/1 Ml Inj IV 2 mg Q4H PRN Administration Pain, Moderate (4-6) Multivitamins 1 each 12/27/21 18:00 12/30/21 08:33 Multivitamins ,Therapeutic Tab PO 1 each DAILY FUNMI Administration Ondansetron HCl 4 mg 12/27/21 17:00 12/30/21 06:09 Ondansetron 4 Mg/2 Ml Inj IV 4 mg Q8H PRN Administration Nausea And Vomiting Sodium Chloride 10 ml 12/27/21 22:00 12/29/21 21:41 Sodium Chloride 0.9% 10 Ml Flush Syringe IV 10 ml BID FUNMI Administration Sodium Chloride 10 ml 12/27/21 17:00 Sodium Chloride 0.9% 10 Ml Flush Syringe IV PRN PRN LINE FLUSH Nutrition/Malnutrition Assess - Dietary Evaluation Nutrition/Malnutrition Findings: Nutrition Notes Start: 12/28/21 11:07 Freq: Status: Active Protocol: Document 12/28/21 11:07 KIP (Rec: 12/28/21 11:30 KIP [id number]) Nutrition Notes Need for Assessment 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 Current Diet NPO (since12/28 00:01). Labs/Tests 12/27: Na 136, CO2 20, Glu 124 , Ca 8.0. Pertinent Medications 12/28: Multivitamins, others nutritionally unremarkable. Height 5 ft 5 in Weight 102.05 kg [place] Body Weight (kg) 56.81 BMI 37.4 Intake Prior to Admission Poor Weight change and time frame Pt states hving loss, unintentionally, between 2 and 13 lb recently. Weight Status Obese Subjective/Other Information RD consult for risk of malnutrition assessment. Pt currently on NPO. Procedure: CT-guided drainage, planned for 12/28, according to Event note. Pt on Room Air, O2 saturation @ 97%, according to Physical Assessment History notes. Pt is s/p Cholecystectomy/ Appendectomy on 12/10/2021. Pt states having loss, unintentionally, between 2 and 13 lb recently, likelly associated with cholelithiasis and appendicitis conditions from last month, and subsequent surgical intervention. Pt shows no signs of concern for risk of malnutrition at the time, according to Physical Assessment History notes. Percent of energy/protein needs met: Pt currently on NPO. Burn Absent Trauma Absent GI Symptoms Other Food Allergy No Skin Integrity/Comment Surgical wound. Current % PO Other Minimum of two criteria No #1 Nutrition Diagnosis No nutrition diagnosis at this time Comments: Will assess Pt's PO intake of meals at F/U. Is patient on ventilator? No Is Patient Ambulatory and/or Out of Bed Yes REE-([place]-ambulatory/OOB) [ 2309.294 NUTR.MSJOOB] Kcal/Kg value to use for calculation 15 Approximate Energy Requirements Using 1531 kcal/Kg Calculation Used for Recommendations Kcal/kg Additional Notes Protein: 0.8-1 g/Kg AdjBW; 64- 80 g/day. Fluids: 1 ml/Kcal, or as per MD. Nutrition Intervention Follow-Up By: 01/01/22 Additional Comments When pertinent, start monitoring food tolerance, %PO intake of meals, and BM.
--- NOTE | 2021-12-30 13:30 | Progress Note ---
Assessment and Plan - Patient Problems (1) Intra-abdominal abscess Current Visit: Yes Status: Acute Plan to address problem: 1) Improving 2) Continue IV Zosyn and Fluconazole 3) Repeat CT abdomen and pelvis with contrast on 01/01/22. Subjective Date of service: 12/30/21 Patient Reports: Positive: no new complaints, feels better, pain is less. Negative: nausea, vomiting Objective Vital Signs - 12hr 12/30/21 12/30/21 12/30/21 01:53 03:31 06:09 Temperature 98.0 F Pulse Rate 79 Respiratory 17 16 18 Rate Blood Pressure 111/72 O2 Sat by Pulse 98 Oximetry 12/30/21 12/30/21 12/30/21 06:38 09:57 10:00 Temperature Pulse Rate Respiratory 18 Rate Blood Pressure O2 Sat by Pulse 95 96 Oximetry 12/30/21 11:33 Temperature 99.0 F Pulse Rate 70 Respiratory 20 Rate Blood Pressure 132/84 O2 Sat by Pulse 97 Oximetry - Abdomen soft, bowel sounds normal, not rebound, not guarding (Mild TTP in the RLQ. Minimal drainage in TAMARA bulb.) - Labs 12/30/21 06:08 12/30/21 06:08 Diabetes panel 12/30/21 Range/Units 06:08 Sodium 137 (137-145) mmol/L Potassium 3.4 L (3.6-5.0) mmol/L Chloride 100.0 (98-107) mmol/L Carbon Dioxide 24 (22-30) mmol/L BUN 5 L (7-17) mg/dL Creatinine 0.6 (0.6-1.2) mg/dL Glucose 200 H (65-100) mg/dL Calcium 8.7 (8.4-10.2) mg/dL Calcium panel 12/30/21 Range/Units 06:08 Calcium 8.7 (8.4-10.2) mg/dL Pituitary panel 12/30/21 Range/Units 06:08 Sodium 137 (137-145) mmol/L Potassium 3.4 L (3.6-5.0) mmol/L Chloride 100.0 (98-107) mmol/L Carbon Dioxide 24 (22-30) mmol/L BUN 5 L (7-17) mg/dL Creatinine 0.6 (0.6-1.2) mg/dL Glucose 200 H (65-100) mg/dL Calcium 8.7 (8.4-10.2) mg/dL Adrenal panel 12/30/21 Range/Units 06:08 Sodium 137 (137-145) mmol/L Potassium 3.4 L (3.6-5.0) mmol/L Chloride 100.0 (98-107) mmol/L Carbon Dioxide 24 (22-30) mmol/L BUN 5 L (7-17) mg/dL Creatinine 0.6 (0.6-1.2) mg/dL Glucose 200 H (65-100) mg/dL Calcium 8.7 (8.4-10.2) mg/dL - Imaging Additional Studies: C&S with heavy growth of E. coli sensitive to Zosyn.
[2021-12-31] MEDS: PIPERACIL/TAZOBACTA 4.5/NS 100 4.5 GM/100 ML VIAL IV SCH ×5 (00:27→23:36)
[2021-12-31] MEDS: HYDROmorphone 1 MG/1 ML INJ IV PRN (04:59)
[2021-12-31] MEDS: ONDANSETRON 4 MG/2 ML INJ IV PRN ×4 (05:03→22:31)
[2021-12-31] MEDS: SODIUM CHLORIDE 0.9% 1000 ML 1,000 ML IV SCH (05:24)
[2021-12-31 07:15] LABS: Blood Urea Nitrogen 3 mg/dL (7-17); Calcium 8.5 mg/dL (8.4-10.2); Hemolysis Index 2
[2021-12-31 07:19] LABS: BUN/Creatinine Ratio 5
[2021-12-31] MEDS: INSULIN LISPRO 100 UNIT/ML SUB-Q SCH ×4 (07:30→22:38)
[2021-12-31 07:44] LABS: Basophils % (Auto) 0.4 % (0.0-1.8); Eosinophils # (Auto) 0.1 K/mm3 (0.0-0.4); Eosinophils % (Auto) 1.3 % (0.0-4.3); Hematocrit 29.1 % (30.3-42.9); Hemoglobin 9.5 gm/dl (10.1-14.3); Lymphocytes # (Auto) 1.9 K/mm3 (1.2-5.4); Lymphocytes % (Auto) 17.2 % (13.4-35.0); Mean Corpuscular HGB Conc 33 % (30-34); Mean Corpuscular Volume 85 fl (79-97); Monocytes # (Auto) 0.9 K/mm3 (0.0-0.8); Monocytes % (Auto) 8.1 % (0.0-7.3); Platelet Count 284 K/mm3 (140-440); Red Blood Count 3.42 M/mm3 (3.65-5.03); Red Cell Distribution Width 14.1 % (13.2-15.2)
[2021-12-31] MEDS: metFORMIN 500 MG TAB PO SCH ×2 (08:34→17:32)
[2021-12-31] MEDS: MULTIVITAMINS ,THERAPEUTIC TAB PO SCH ×2 (08:34→11:44)
[2021-12-31] MEDS: FLUCONAZOLE 400 MG 200 ML IV SCH ×2 (08:35→11:44)
[2021-12-31] MEDS: NICOTINE 14 MG/24 HR PATCH TD SCH (09:08)
--- NOTE | 2021-12-31 09:11 | Progress Note ---
Assessment and Plan Assessment and plan: The patient is a 21-year-old female with morbid obesity who underwent a laparoscopic cholecystectomy and laparoscopic appendectomy on 12/10/2021, intraoperatively had a tear of the appendix with purulence in RLQ and postoperative course complicated by low-grade fevers, RLQ fluid abscess status post IR drainage on 12/14/2021 was doing well until recently she started developing fever increasing abdominal pain. She presented to the emergency room on 12/27/2021, CT abdomen and pelvis revealed intra-abdominal fluid collections with enhancement and gas. IR was consulted and patient underwent another drain placement on 12/28/2021. Infectious diseases was consulted for antibiotic management. Sepsis Intra-abdominal abscess Obesity Diabetes mellitus type 2 12/29/2021. ID switched antibiotics to IV Zosyn and fluconazole. We will follow-up IR drainage cultures. Continue to monitor drain output. Surgery/IR following for drain management. Consider repeat CT scan. 12/30/2021. Continue IV antibiotics per ID recommendations. Follow-up cultures. Follow-up CBC/BMP 12/31/2021. Continue IV Zosyn and fluconazole. Repeat CT abdomen pelvis with contrast on Saturday. We will follow-up IR drainage cultures. Continue to monitor drain output. Surgery/IR following for drain management. History Interval history: No new issues overnight. Hospitalist Physical - Constitutional Vitals: Temp Pulse Resp BP Pulse Ox 99.3 F 79 20 120/78 96 12/31/21 04:44 12/31/21 04:44 12/31/21 04:44 12/31/21 04:44 12/31/21 07:21 General appearance: Present: no acute distress, well-nourished - EENT Eyes: Present: PERRL, EOM intact ENT: hearing intact, clear oral mucosa, dentition normal - Neck Neck: Present: supple, normal ROM - Respiratory Respiratory effort: normal Respiratory: bilateral: CTA - Cardiovascular Rhythm: regular Heart Sounds: Present: S1 & S2. Absent: gallop, rub - Extremities Extremities: no ischemia, No edema, Full ROM - Abdominal General gastrointestinal: soft, non-tender, non-distended, normal bowel sounds - Integumentary Integumentary: Present: clear, warm, dry - Neurologic Neurologic: CNII-XII intact, moves all extremities Results - Labs CBC & Chem 7: 12/31/21 06:01 12/31/21 06:01 Labs: Laboratory Last Values WBC 10.8 K/mm3 (4.5-11.0) 12/31/21 06:01 RBC 3.42 M/mm3 (3.65-5.03) L 12/31/21 06:01 Hgb 9.5 gm/dl (10.1-14.3) L 12/31/21 06:01 Hct 29.1 % (30.3-42.9) L 12/31/21 06:01 MCV 85 fl (79-97) 12/31/21 06:01 MCH 28 pg (28-32) 12/31/21 06:01 MCHC 33 % (30-34) 12/31/21 06:01 RDW 14.1 % (13.2-15.2) 12/31/21 06:01 Plt Count 284 K/mm3 (140-440) 12/31/21 06:01 Lymph % (Auto) 17.2 % (13.4-35.0) 12/31/21 06:01 [place] % (Auto) 8.1 % (0.0-7.3) H 12/31/21 06:01 Eos % (Auto) 1.3 % (0.0-4.3) 12/31/21 06:01 Baso % (Auto) 0.4 % (0.0-1.8) 12/31/21 06:01 Lymph # (Auto) 1.9 K/mm3 (1.2-5.4) 12/31/21 06:01 [place] # (Auto) 0.9 K/mm3 (0.0-0.8) H 12/31/21 06:01 Eos # (Auto) 0.1 K/mm3 (0.0-0.4) 12/31/21 06:01 Baso # (Auto) 0.0 K/mm3 (0.0-0.1) 12/31/21 06:01 Seg Neutrophils % 73.0 % (40.0-70.0) H 12/31/21 06:01 Seg Neutrophils # 7.9 K/mm3 (1.8-7.7) H 12/31/21 06:01 Sodium 136 mmol/L (137-145) L 12/31/21 06:01 Potassium 3.6 mmol/L (3.6-5.0) 12/31/21 06:01 Chloride 100.9 mmol/L (98-107) 12/31/21 06:01 Carbon Dioxide 24 mmol/L (22-30) 12/31/21 06:01 Anion Gap 15 mmol/L 12/31/21 06:01 BUN 3 mg/dL (7-17) L 12/31/21 06:01 Creatinine 0.6 mg/dL (0.6-1.2) 12/31/21 06:01 Estimated GFR > 60 ml/min 12/31/21 06:01 BUN/Creatinine Ratio 5 % 12/31/21 06:01 Glucose 137 mg/dL (65-100) H 12/31/21 06:01 POC Glucose 147 mg/dL (70-105) H 12/30/21 22:46 Lactic Acid 1.80 mmol/L (0.7-2.0) 12/27/21 10:10 Calcium 8.5 mg/dL (8.4-10.2) 12/31/21 06:01 Total Bilirubin 0.40 mg/dL (0.1-1.2) 12/27/21 16:39 AST 14 units/L (5-40) 12/27/21 16:39 ALT 11 units/L (7-56) 12/27/21 16:39 Alkaline Phosphatase 80 units/L (35-129) 12/27/21 16:39 Total Protein 7.0 g/dL (6.3-8.2) 12/27/21 16:39 Albumin 2.9 g/dL (3.9-5) L 12/27/21 16:39 Albumin/Globulin Ratio 0.7 % 12/27/21 16:39 Urine Color Yellow (Yellow) 12/27/21 Unknown Urine Turbidity Hazy (Clear) 12/27/21 Unknown Urine pH 6.0 (5.0-7.0) 12/27/21 Unknown Ur Specific [place] 1.018 (1.003-1.030) 12/27/21 Unknown Urine Protein 30 mg/dl mg/dL (Negative) 12/27/21 Unknown Urine Glucose (UA) Neg mg/dL (Negative) 12/27/21 Unknown Urine Ketones Tr mg/dL (Negative) 12/27/21 Unknown Urine Blood Sm (Negative) 12/27/21 Unknown Urine Nitrite Neg (Negative) 12/27/21 Unknown Urine Bilirubin Neg (Negative) 12/27/21 Unknown Urine Urobilinogen < 2.0 mg/dL (<2.0) 12/27/21 Unknown Ur Leukocyte Esterase Mod (Negative) 12/27/21 Unknown Urine WBC (Auto) 11.0 /HPF (0.0-6.0) H 12/27/21 Unknown Urine RBC (Auto) 2.0 /HPF (0.0-6.0) 12/27/21 Unknown U Epithel Cells (Auto) 17.0 /HPF (0-13.0) H 12/27/21 Unknown Urine Bacteria (Auto) 1+ /HPF (Negative) 12/27/21 Unknown Urine Mucus Few /HPF 12/27/21 Unknown Urine HCG, Qual Negative (Negative) 12/27/21 11:50 Microbiology: Microbiology 12/28/21 14:50 Abdomen Surgical Culture - Preliminary Escherichia Coli 12/27/21 10:27 Peripheral/Venous Blood Culture - Preliminary NO GROWTH AFTER 72 HOURS 12/27/21 10:27 Peripheral/Venous Blood Culture - Preliminary NO GROWTH AFTER 72 HOURS Jose/IV: Voiding Method Toilet Active Medications - Current Medications Current Medications: Generic Name Dose Route Start Last Admin Trade Name Freq PRN Reason Stop Dose Admin Acetaminophen 650 mg 12/27/21 17:00 12/29/21 21:39 Acetaminophen 325 Mg Tab PO 650 mg Q4H PRN Administration Pain MILD(1-3)/Fever >100.5/ZAPATA Albuterol 2.5 mg 12/27/21 20:00 Albuterol 2.5 Mg/3 Ml Nebu IH Q4HRT PRN Shortness Of Breath Hydromorphone HCl 0.5 mg 12/27/21 17:00 12/31/21 04:59 Hydromorphone 1 Mg/1 Ml Inj IV 0.5 mg Q8H PRN Administration Pain , Severe (7-10) Sodium Chloride 1,000 mls @ 125 mls/hr 12/27/21 16:30 12/31/21 05:24 Nacl 0.9% 1000 Ml IV 125 mls/hr DIRECT FUNMI Administration Piperacillin Sod/Tazobactam Sod 4.5 gm in 100 mls @ 200 mls/hr 12/29/21 12:00 12/31/21 05:03 Zosyn/Ns 4.5gm/100ml IV 200 mls/hr Q6HR FUNMI Administration Protocol Fluconazole 200 mls @ 100 mls/hr 12/29/21 12:00 12/31/21 08:35 Diflucan IV 100 mls/hr Q24HR FUNMI Administration Protocol Insulin Human Lispro 0 unit 12/28/21 22:00 12/31/21 07:30 Insulin Lispro 100 Unit/Ml SUB-Q Not Given ACHS FUNMI Protocol Metformin HCl 500 mg 12/29/21 17:00 12/31/21 08:34 Metformin 500 Mg Tab PO 500 mg BIDDIAB FUNMI Administration Morphine Sulfate 2 mg 12/27/21 17:00 12/30/21 23:31 Morphine 2 Mg/1 Ml Inj IV 2 mg Q4H PRN Administration Pain, Moderate (4-6) Multivitamins 1 each 12/27/21 18:00 12/31/21 08:34 Multivitamins ,Therapeutic Tab PO 1 each DAILY FUNMI Administration Nicotine 14 mg 12/31/21 10:00 12/31/21 09:08 Nicotine 14 Mg/24 Hr Patch TD 14 mg QDAY FUNMI Administration Ondansetron HCl 4 mg 12/27/21 17:00 12/31/21 05:03 Ondansetron 4 Mg/2 Ml Inj IV 4 mg Q8H PRN Administration Nausea And Vomiting Sodium Chloride 10 ml 12/27/21 22:00 12/31/21 08:35 Sodium Chloride 0.9% 10 Ml Flush Syringe IV 10 ml BID FUNMI Administration Sodium Chloride 10 ml 12/27/21 17:00 Sodium Chloride 0.9% 10 Ml Flush Syringe IV PRN PRN LINE FLUSH Nutrition/Malnutrition Assess - Dietary Evaluation Nutrition/Malnutrition Findings: Nutrition Notes Start: 12/28/21 11:07 Freq: Status: Active Protocol: Document 12/28/21 11:07 KIP (Rec: 12/28/21 11:30 KIP [email or web address]) Nutrition Notes 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 Current Diet NPO ( 00:01). Labs/Tests 12/27: Na 136, CO2 20, Glu 124 , Ca 8.0. Pertinent Medications 12/28: Multivitamins, others nutritionally unremarkable. Height 5 ft 5 in Weight 102.05 kg [place] Body Weight (kg) 56.81 BMI 37.4 Intake Prior to Admission Poor Weight change and time frame Pt states hving loss, unintentionally, between 2 and 13 lb recently. Weight Status Obese Subjective/Other Information RD consult for risk of malnutrition assessment. Pt currently on NPO. Procedure: CT-guided drainage, planned for 12/28, according to Event note. Pt on Room Air, O2 saturation @ 97%, according to Physical Assessment History notes. Pt is s/p Cholecystectomy/ Appendectomy on 12/10/2021. Pt states having loss, unintentionally, between 2 and 13 lb recently, likelly associated with cholelithiasis and appendicitis conditions from last month, and subsequent surgical intervention. Pt shows no signs of concern for risk of malnutrition at the time, according to Physical Assessment History notes. Percent of energy/protein needs met: Pt currently on NPO. Burn Absent Trauma Absent GI Symptoms Other Food Allergy No Skin Integrity/Comment Surgical wound. Current % PO Other Minimum of two criteria No #1 Nutrition Diagnosis No nutrition diagnosis at this time Comments: Will assess Pt's PO intake of meals at F/U. Is patient on ventilator? No Is Patient Ambulatory and/or Out of Bed Yes REE-([facility]-ambulatory/OOB) [ 2309.294 NUTR.MSJOOB] Kcal/Kg value to use for calculation 15 Approximate Energy Requirements Using 1531 kcal/Kg Calculation Used for Recommendations Kcal/kg Additional Notes Protein: 0.8-1 g/Kg AdjBW; 64- 80 g/day. Fluids: 1 ml/Kcal, or as per MD. Nutrition Intervention Follow-Up By: 01/01/22 Additional Comments When pertinent, start monitoring food tolerance, %PO intake of meals, and BM.
[2021-12-31] MEDS ORDERED: IBUPROFEN 800 MG TAB PO PRN (11:43)
[2021-12-31] MEDS: MORPHINE 2 MG/1 ML INJ IV PRN ×2 (18:06→22:31)
[2022-01-01] MEDS: MORPHINE 2 MG/1 ML INJ IV PRN ×4 (05:03→21:11)
[2022-01-01] MEDS: PIPERACIL/TAZOBACTA 4.5/NS 100 4.5 GM/100 ML VIAL IV SCH ×3 (05:04→17:30)
[2022-01-01] MEDS: ONDANSETRON 4 MG/2 ML INJ IV PRN ×4 (05:04→21:10)
[2022-01-01] MEDS: SODIUM CHLORIDE 0.9% 1000 ML 1,000 ML IV SCH (05:24)
[2022-01-01] MEDS: INSULIN LISPRO 100 UNIT/ML SUB-Q SCH ×4 (07:08→22:42)
[2022-01-01 08:16] LABS: Basophils % (Auto) 0.3 % (0.0-1.8); Eosinophils # (Auto) 0.2 K/mm3 (0.0-0.4); Eosinophils % (Auto) 1.4 % (0.0-4.3); Hematocrit 31.5 % (30.3-42.9); Hemoglobin 10.4 gm/dl (10.1-14.3); Lymphocytes % (Auto) 18.6 % (13.4-35.0); Mean Corpuscular HGB Conc 33 % (30-34); Mean Corpuscular Volume 85 fl (79-97); Monocytes # (Auto) 0.8 K/mm3 (0.0-0.8); Monocytes % (Auto) 7.6 % (0.0-7.3); Platelet Count 343 K/mm3 (140-440); Red Blood Count 3.71 M/mm3 (3.65-5.03); Red Cell Distribution Width 14.2 % (13.2-15.2)
[2022-01-01 08:37] LABS: Blood Urea Nitrogen 3 mg/dL (7-17); Calcium 8.9 mg/dL (8.4-10.2); Hemolysis Index 0
[2022-01-01 08:41] LABS: BUN/Creatinine Ratio 5
--- NOTE | 2022-01-01 09:04 | Cat Scan Report ---
CT ABDOMEN AND PELVIS WITH CONTRAST HISTORY: F/u of intra-abdominal abscesses OMNI 300 100 ML . COMPARISON: CT drainage dated 12/28/2021. 12/27/2021. TECHNIQUE: Helical CT images of the abdomen and pelvis were obtained following administration of intr avenous contrast. Sagittal and coronal reformatted images were reviewed. [facility] CT [facility] are performed using CT dose reduction for ALARA by means of automated exposure control. CONTRAST: Omnipaque 300 100 ml of intravenous contrast administered. FINDINGS: Abdomen/pelvis: A percutaneous drain has been placed in an anterior abdominal/pelvic fluid collectio n which measured up to 8.6 x 6.5 cm in axial plane on the previous exam. There is complete evacuation of the anterior pelvic fluid collection. There is a second collection in the cul-de-sac along the po sterior border of the uterus which appears unchanged measuring 6.3 x 5.9 x 4.7 cm. No additional flui d collection. The gallbladder has been surgically removed. The liver, pancreas, spleen, kidneys, adrenal glands, va scular structures and bowel loops remain unremarkable. The uterus, adnexa and bladder are within norm al limits. Lungs/bones: Trace bilateral pleural effusions and bibasilar atelectatic changes are present. Heart size is normal. No osseous abnormality is appreciated. IMPRESSION: An anterior pelvic fluid collection containing a percutaneous drain has resolved. There is a second c ollection consistent with abscess in the cul-de-sac which appears unchanged, see above. Signer Name: Ke Munoz Jr, MD Signed: 01/01/2022 9:00 AM Workstation Name: [id number]
--- NOTE | 2022-01-01 09:49 | Progress Note ---
Assessment and Plan Assessment and plan: The patient is a 21-year-old female with morbid obesity who underwent a laparoscopic cholecystectomy and laparoscopic appendectomy on 12/10/2021, intraoperatively had a tear of the appendix with purulence in RLQ and postoperative course complicated by low-grade fevers, RLQ fluid abscess status post IR drainage on 12/14/2021 was doing well until recently she started developing fever increasing abdominal pain. She presented to the emergency room on 12/27/2021, CT abdomen and pelvis revealed intra-abdominal fluid collections with enhancement and gas. IR was consulted and patient underwent another drain placement on 12/28/2021. Infectious diseases was consulted for antibiotic management. Sepsis Intra-abdominal abscess Obesity Diabetes mellitus type 2 12/29/2021. ID switched antibiotics to IV Zosyn and fluconazole. We will follow-up IR drainage cultures. Continue to monitor drain output. Surgery/IR following for drain management. Consider repeat CT scan. 12/30/2021. Continue IV antibiotics per ID recommendations. Follow-up cultures. Follow-up CBC/BMP 12/31/2021. Continue IV Zosyn and fluconazole. Repeat CT abdomen pelvis with contrast on Saturday. We will follow-up IR drainage cultures. Continue to monitor drain output. Surgery/IR following for drain management. 01/01/2022. Continue IV antibiotics per ID recommendations. Patient is to have repeat CT of the abdomen and pelvis with contrast today. We will follow-up IR drainage cultures. Continue to monitor drain output. Surgery/IR following for drain management. History Interval history: No new issues overnight. Hospitalist Physical - Constitutional Vitals: Temp Pulse Resp BP Pulse Ox 99.6 F 75 18 123/83 94 01/01/22 05:08 01/01/22 05:08 01/01/22 05:08 01/01/22 05:08 01/01/22 05:08 General appearance: Present: no acute distress, well-nourished - EENT Eyes: Present: PERRL, EOM intact ENT: hearing intact, clear oral mucosa, dentition normal - Neck Neck: Present: supple, normal ROM - Respiratory Respiratory effort: normal Respiratory: bilateral: CTA - Cardiovascular Rhythm: regular Heart Sounds: Present: S1 & S2. Absent: gallop, rub - Extremities Extremities: no ischemia, No edema, Full ROM - Abdominal General gastrointestinal: soft, non-tender, non-distended, normal bowel sounds - Integumentary Integumentary: Present: clear, warm, dry - Neurologic Neurologic: CNII-XII intact, moves all extremities Results - Labs CBC & Chem 7: 01/01/22 07:21 01/01/22 07:21 Labs: Laboratory Last Values WBC 10.9 K/mm3 (4.5-11.0) 01/01/22 07:21 RBC 3.71 M/mm3 (3.65-5.03) 01/01/22 07:21 Hgb 10.4 gm/dl (10.1-14.3) 01/01/22 07:21 Hct 31.5 % (30.3-42.9) 01/01/22 07:21 MCV 85 fl (79-97) 01/01/22 07:21 MCH 28 pg (28-32) 01/01/22 07:21 MCHC 33 % (30-34) 01/01/22 07:21 RDW 14.2 % (13.2-15.2) 01/01/22 07:21 Plt Count 343 K/mm3 (140-440) 01/01/22 07:21 Lymph % (Auto) 18.6 % (13.4-35.0) 01/01/22 07:21 [place] % (Auto) 7.6 % (0.0-7.3) H 01/01/22 07:21 Eos % (Auto) 1.4 % (0.0-4.3) 01/01/22 07:21 Baso % (Auto) 0.3 % (0.0-1.8) 01/01/22 07:21 Lymph # (Auto) 2.0 K/mm3 (1.2-5.4) 01/01/22 07:21 [place] # (Auto) 0.8 K/mm3 (0.0-0.8) 01/01/22 07:21 Eos # (Auto) 0.2 K/mm3 (0.0-0.4) 01/01/22 07:21 Baso # (Auto) 0.0 K/mm3 (0.0-0.1) 01/01/22 07:21 Seg Neutrophils % 72.1 % (40.0-70.0) H 01/01/22 07:21 Seg Neutrophils # 7.9 K/mm3 (1.8-7.7) H 01/01/22 07:21 Sodium 138 mmol/L (137-145) 01/01/22 07:21 Potassium 3.6 mmol/L (3.6-5.0) 01/01/22 07:21 Chloride 101.4 mmol/L (98-107) 01/01/22 07:21 Carbon Dioxide 24 mmol/L (22-30) 01/01/22 07:21 Anion Gap 16 mmol/L 01/01/22 07:21 BUN 3 mg/dL (7-17) L 01/01/22 07:21 Creatinine 0.6 mg/dL (0.6-1.2) 01/01/22 07:21 Estimated GFR > 60 ml/min 01/01/22 07:21 BUN/Creatinine Ratio 5 % 01/01/22 07:21 Glucose 125 mg/dL (65-100) H 01/01/22 07:21 POC Glucose 114 mg/dL (70-105) H 01/01/22 07:46 Lactic Acid 1.80 mmol/L (0.7-2.0) 12/27/21 10:10 Calcium 8.9 mg/dL (8.4-10.2) 01/01/22 07:21 Total Bilirubin 0.40 mg/dL (0.1-1.2) 12/27/21 16:39 AST 14 units/L (5-40) 12/27/21 16:39 ALT 11 units/L (7-56) 12/27/21 16:39 Alkaline Phosphatase 80 units/L (35-129) 12/27/21 16:39 Total Protein 7.0 g/dL (6.3-8.2) 12/27/21 16:39 Albumin 2.9 g/dL (3.9-5) L 12/27/21 16:39 Albumin/Globulin Ratio 0.7 % 12/27/21 16:39 Urine Color Yellow (Yellow) 12/27/21 Unknown Urine Turbidity Hazy (Clear) 12/27/21 Unknown Urine pH 6.0 (5.0-7.0) 12/27/21 Unknown Ur Specific [place] 1.018 (1.003-1.030) 12/27/21 Unknown Urine Protein 30 mg/dl mg/dL (Negative) 12/27/21 Unknown Urine Glucose (UA) Neg mg/dL (Negative) 12/27/21 Unknown Urine Ketones Tr mg/dL (Negative) 12/27/21 Unknown Urine Blood Sm (Negative) 12/27/21 Unknown Urine Nitrite Neg (Negative) 12/27/21 Unknown Urine Bilirubin Neg (Negative) 12/27/21 Unknown Urine Urobilinogen < 2.0 mg/dL (<2.0) 12/27/21 Unknown Ur Leukocyte Esterase Mod (Negative) 12/27/21 Unknown Urine WBC (Auto) 11.0 /HPF (0.0-6.0) H 12/27/21 Unknown Urine RBC (Auto) 2.0 /HPF (0.0-6.0) 12/27/21 Unknown U Epithel Cells (Auto) 17.0 /HPF (0-13.0) H 12/27/21 Unknown Urine Bacteria (Auto) 1+ /HPF (Negative) 12/27/21 Unknown Urine Mucus Few /HPF 12/27/21 Unknown Urine HCG, Qual Negative (Negative) 12/27/21 11:50 Nasal Screen MRSA (PCR) Negative (Negative) 12/28/21 02:23 Microbiology: Microbiology 12/27/21 10:27 Peripheral/Venous Blood Culture - Preliminary NO GROWTH AFTER 4 DAYS 12/27/21 10:27 Peripheral/Venous Blood Culture - Preliminary NO GROWTH AFTER 4 DAYS Jose/IV: Voiding Method Toilet Active Medications - Current Medications Current Medications: Generic Name Dose Route Start Last Admin Trade Name Freq PRN Reason Stop Dose Admin Acetaminophen 650 mg 12/27/21 17:00 12/29/21 21:39 Acetaminophen 325 Mg Tab PO 650 mg Q4H PRN Administration Pain MILD(1-3)/Fever >100.5/ZAPATA Albuterol 2.5 mg 12/27/21 20:00 Albuterol 2.5 Mg/3 Ml Nebu IH Q4HRT PRN Shortness Of Breath Piperacillin Sod/Tazobactam Sod 4.5 gm in 100 mls @ 200 mls/hr 12/29/21 12:00 01/01/22 05:04 Zosyn/Ns 4.5gm/100ml IV 200 mls/hr Q6HR FUNMI Administration Protocol Fluconazole 200 mls @ 100 mls/hr 12/29/21 12:00 12/31/21 11:44 Diflucan IV Not Given Q24HR FUNMI Protocol Sodium Chloride 1,000 mls @ 50 mls/hr 12/31/21 15:15 01/01/22 05:24 Nacl 0.9% 1000 Ml IV 50 mls/hr DIRECT FUNMI Administration Ibuprofen 800 mg 12/31/21 11:43 12/31/21 12:10 Ibuprofen 800 Mg Tab PO 800 mg Q8H PRN Administration Pain, Mild (1-3) Insulin Human Lispro 0 unit 12/28/21 22:00 12/31/21 22:38 Insulin Lispro 100 Unit/Ml SUB-Q Not Given ACHS [facility] Protocol Metformin HCl 500 mg 12/29/21 17:00 12/31/21 17:32 Metformin 500 Mg Tab PO 500 mg BIDDIAB FUNMI Administration Morphine Sulfate 2 mg 12/27/21 17:00 01/01/22 05:03 Morphine 2 Mg/1 Ml Inj IV 2 mg Q4H PRN Administration Pain, Moderate (4-6) Multivitamins 1 each 12/27/21 18:00 12/31/21 11:44 Multivitamins ,Therapeutic Tab PO Not Given DAILY FUNMI Nicotine 14 mg 12/31/21 10:00 12/31/21 09:08 Nicotine 14 Mg/24 Hr Patch TD 14 mg QDAY FUNMI Administration Ondansetron HCl 4 mg 12/31/21 17:53 01/01/22 05:04 Ondansetron 4 Mg/2 Ml Inj IV 4 mg Q4H PRN Administration Nausea And Vomiting Sodium Chloride 10 ml 12/27/21 22:00 12/31/21 22:38 Sodium Chloride 0.9% 10 Ml Flush Syringe IV 10 ml BID FUNMI Administration Sodium Chloride 10 ml 12/27/21 17:00 Sodium Chloride 0.9% 10 Ml Flush Syringe IV PRN PRN LINE FLUSH Nutrition/Malnutrition Assess - Dietary Evaluation Nutrition/Malnutrition Findings: Nutrition Notes Start: 12/28/21 11:07 Freq: Status: Active Protocol: Document 12/28/21 11:07 KIP (Rec: 12/28/21 11:30 KIP [id number]) Nutrition Notes Need for Assessment generated from: nursing technician,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 Current Diet NPO (14 00:01). Labs/Tests 12/27: Na 136, CO2 20, Glu 124 , Ca 8.0. Pertinent Medications 12/28: Multivitamins, others nutritionally unremarkable. Height 5 ft 5 in Weight 102.05 kg [place] Body Weight (kg) 56.81 BMI 37.4 Intake Prior to Admission Poor Weight change and time frame Pt states hving loss, unintentionally, between 2 and 13 lb recently. Weight Status Obese Subjective/Other Information RD consult for risk of malnutrition assessment. Pt currently on NPO. Procedure: CT-guided drainage, planned for 12/28, according to Event note. Pt on Room Air, O2 saturation @ 97%, according to Physical Assessment History notes. Pt is s/p Cholecystectomy/ Appendectomy on 12/10/2021. Pt states having loss, unintentionally, between 2 and 13 lb recently, likelly associated with cholelithiasis and appendicitis conditions from last month, and subsequent surgical intervention. Pt shows no signs of concern for risk of malnutrition at the time, according to Physical Assessment History notes. Percent of energy/protein needs met: Pt currently on NPO. Burn Absent Trauma Absent GI Symptoms Other Food Allergy No Skin Integrity/Comment Surgical wound. Current % PO Other Minimum of two criteria No #1 Nutrition Diagnosis No nutrition diagnosis at this time Comments: Will assess Pt's PO intake of meals at F/U. Is patient on ventilator? No Is Patient Ambulatory and/or Out of Bed Yes REE-([facility]-ambulatory/OOB) [ 2309.294 NUTR.MSJOOB] Kcal/Kg value to use for calculation 15 Approximate Energy Requirements Using 1531 kcal/Kg Calculation Used for Recommendations Kcal/kg Additional Notes Protein: 0.8-1 g/Kg AdjBW; 64- 80 g/day. Fluids: 1 ml/Kcal, or as per MD. Nutrition Intervention Follow-Up By: 01/01/22 Additional Comments When pertinent, start monitoring food tolerance, %PO intake of meals, and BM.
[2022-01-01] MEDS: MULTIVITAMINS ,THERAPEUTIC TAB PO SCH (09:57)
[2022-01-01] MEDS: FLUCONAZOLE 400 MG 200 ML IV SCH (09:57)
[2022-01-01] MEDS: metFORMIN 500 MG TAB PO SCH ×2 (09:57→16:33)
[2022-01-01] MEDS: NICOTINE 14 MG/24 HR PATCH TD SCH (09:57)
--- NOTE | 2022-01-01 12:15 | Progress Note ---
Assessment and Plan - Patient Problems (1) Intra-abdominal abscess Current Visit: Yes Status: Acute Plan to address problem: 1) Improving. Recommend consulting IR again re drainage of cul-de-sac abscess. 2) Follow ID recommendations Subjective Date of service: 01/01/22 Patient Reports: Positive: no new complaints, feels better Objective Vital Signs - 12hr 01/01/22 05:08 Temperature 99.6 F Pulse Rate 75 Respiratory 18 Rate Blood Pressure 123/83 O2 Sat by Pulse 94 Oximetry - Abdomen PM_[id number] 4, PM_46_[id number] 6, PM_46_[id number] 8 Hernia: none - Labs 01/01/22 07:21 01/01/22 07:21 Diabetes panel 01/01/22 Range/Units 07:21 Sodium 138 (137-145) mmol/L Potassium 3.6 (3.6-5.0) mmol/L Chloride 101.4 (98-107) mmol/L Carbon Dioxide 24 (22-30) mmol/L BUN 3 L (7-17) mg/dL Creatinine 0.6 (0.6-1.2) mg/dL Glucose 125 H (65-100) mg/dL Calcium 8.9 (8.4-10.2) mg/dL Calcium panel 01/01/22 Range/Units 07:21 Calcium 8.9 (8.4-10.2) mg/dL Pituitary panel 01/01/22 Range/Units 07:21 Sodium 138 (137-145) mmol/L Potassium 3.6 (3.6-5.0) mmol/L Chloride 101.4 (98-107) mmol/L Carbon Dioxide 24 (22-30) mmol/L BUN 3 L (7-17) mg/dL Creatinine 0.6 (0.6-1.2) mg/dL Glucose 125 H (65-100) mg/dL Calcium 8.9 (8.4-10.2) mg/dL Adrenal panel 01/01/22 Range/Units 07:21 Sodium 138 (137-145) mmol/L Potassium 3.6 (3.6-5.0) mmol/L Chloride 101.4 (98-107) mmol/L Carbon Dioxide 24 (22-30) mmol/L BUN 3 L (7-17) mg/dL Creatinine 0.6 (0.6-1.2) mg/dL Glucose 125 H (65-100) mg/dL Calcium 8.9 (8.4-10.2) mg/dL - Imaging CT scan - abdomen: report reviewed CT scan - pelvis: report reviewed
--- NOTE | 2022-01-01 12:50 | Progress Note ---
Assessment and Plan Cultures: 12/27/2021 blood culture: No growth 12/27/2021 urine culture: Mixed ludwin 12/28/2021 IR drain culture: E.coli A/P: 21-year-old female with morbid obesity who underwent a laparoscopic bipin cystectomy and laparoscopic appendectomy on 12/10/2021, intraoperatively had a tear of the appendix with purulence in RLQ and postoperative course complicated by low-grade fevers, RLQ fluid abscess status post IR drainage on 12/14/2021 was doing well until recently she started developing fever increasing abdominal pain, now with: #Sepsis, secondary to intra-abdominal abscess: s/p laparoscopic cholecystectomy and laparoscopic appendectomy on 12/10/2021, drain placement by IR on 12/14/2021. Now s/p IR drain placement 12/28/2021. CT showed enhancing fluid collection with gas in the cul-de-sac, appendectomy bed and extension between rectus muscles anteriorly. Repeat CT 01/01/2022 showing anterior pelvic fluid collection appears resolved, cul-de-sac abscess appears unchanged. #Obesity #Diabetes mellitus Recs: -Anterior pelvic fluid collection appears resolved, cul-de-sac abscess appears unchanged in spite of IV antibiotics. Discussed with Dr. Crews, hopefully it can be drained by interventional radiology. -E.coli susceptible to Zosyn, Continue with IV Zosyn + fluconazole Eden Buenrostro MD, FACP, [facility] O: [phone] F: [phone] C: [phone] Subjective Date of service: 01/01/22 Principal diagnosis: Intra-abdominal abscess Interval history: No fever. No new complaints. No abdominal pain. Had CT done. Tolerating abx. Objective - Exam Narrative Exam: Physical Exam: Constitutional: Alert, cooperative. No acute distress Head, Ears, Nose: Normocephalic, atraumatic. External ears, nose normal Eyes: Conjunctivae/corneas clear. No icterus. No ptosis. Neck: Supple, no meningeal signs Cardiovascular: S1, S2 + Respiratory: Good air entry, clear to auscultation bilaterally GI: Soft, no tenderness; bowel sounds normal. No peritoneal signs. Musculoskeletal: No pedal edema, no cyanosis. Skin: No rash or abscess Hem/Lymphatic: No palpable cervical or supraclavicular nodes. No lymphangitis Psych: Mood ok. Affect normal Neurological: Awake, alert, oriented. No gross abnormality - Constitutional Vitals: Vital Signs Temp Pulse Resp BP Pulse Ox 99.6 F 75 18 123/83 94 01/01/22 05:08 01/01/22 05:08 01/01/22 05:08 01/01/22 05:08 01/01/22 05:08 Temperature -Last 24 Hours Temperature 99.6 F Temperature 98.7 F Temperature 98.2 F - Labs CBC & Chem 7: 01/01/22 07:21 01/01/22 07:21 Labs: Abnormal lab results 12/31/21 12/31/21 01/01/22 Range/Units 16:17 22:02 07:21 [place] % (Auto) 7.6 H (0.0-7.3) % Seg Neutrophils % 72.1 H (40.0-70.0) % Seg Neutrophils # 7.9 H (1.8-7.7) K/mm3 BUN (7-17) mg/dL Glucose (65-100) mg/dL POC Glucose 185 H 120 H (70-105) mg/dL 01/01/22 01/01/22 Range/Units 07:21 07:46 [place] % (Auto) (0.0-7.3) % Seg Neutrophils % (40.0-70.0) % Seg Neutrophils # (1.8-7.7) K/mm3 BUN 3 L (7-17) mg/dL Glucose 125 H (65-100) mg/dL POC Glucose 114 H (70-105) mg/dL
--- NOTE | 2022-01-01 12:54 | Event Note ---
Date: 01/01/[address] scan. There is a second fluid collection in the rectouterine space which is difficult to access from a percutaneous standpoint. We will make patient n.p.o. after midnight except sips of water with meds. Attempt to transgluteal drainage tomorrow. May not be possible to place drain.
--- NOTE | 2022-01-01 15:52 | Cat Scan Report ---
PLEASE SEE OPERATIVE REPORT ON 12/28/21 @1433 MTDD
[2022-01-02] MEDS: PIPERACIL/TAZOBACTA 4.5/NS 100 4.5 GM/100 ML VIAL IV SCH ×5 (00:43→22:53)
[2022-01-02] MEDS: MORPHINE 2 MG/1 ML INJ IV PRN ×6 (00:44→22:19)
[2022-01-02] MEDS: ONDANSETRON 4 MG/2 ML INJ IV PRN ×6 (01:10→22:20)
[2022-01-02 05:46] LABS: Basophils % (Auto) 0.3 % (0.0-1.8); Eosinophils # (Auto) 0.1 K/mm3 (0.0-0.4); Eosinophils % (Auto) 1.3 % (0.0-4.3); Hematocrit 29.8 % (30.3-42.9); Hemoglobin 9.8 gm/dl (10.1-14.3); Lymphocytes # (Auto) 2.1 K/mm3 (1.2-5.4); Lymphocytes % (Auto) 19.3 % (13.4-35.0); Mean Corpuscular HGB Conc 33 % (30-34); Mean Corpuscular Volume 84 fl (79-97); Monocytes # (Auto) 1.1 K/mm3 (0.0-0.8); Monocytes % (Auto) 9.9 % (0.0-7.3); Platelet Count 309 K/mm3 (140-440); Red Blood Count 3.58 M/mm3 (3.65-5.03); Red Cell Distribution Width 14.5 % (13.2-15.2)
[2022-01-02 05:56] LABS: Blood Urea Nitrogen 2 mg/dL (7-17); Calcium 8.1 mg/dL (8.4-10.2); Hemolysis Index 6
[2022-01-02 05:58] LABS: BUN/Creatinine Ratio 3
[2022-01-02] MEDS: INSULIN LISPRO 100 UNIT/ML SUB-Q SCH ×4 (09:23→23:41)
[2022-01-02] MEDS: FLUCONAZOLE 400 MG 200 ML IV SCH (09:29)
--- NOTE | 2022-01-02 11:14 | Progress Note ---
Assessment and Plan Cultures: 12/27/2021 blood culture: No growth 12/27/2021 urine culture: Mixed ludwin 12/28/2021 IR drain culture: E.coli A/P: 21-year-old female with morbid obesity who underwent a laparoscopic bipin cystectomy and laparoscopic appendectomy on 12/10/2021, intraoperatively had a tear of the appendix with purulence in RLQ and postoperative course complicated by low-grade fevers, RLQ fluid abscess status post IR drainage on 12/14/2021 was doing well until recently she started developing fever increasing abdominal pain, now with: #Sepsis, secondary to intra-abdominal abscess: s/p laparoscopic cholecystectomy and laparoscopic appendectomy on 12/10/2021, drain placement by IR on 12/14/2021. Now s/p IR drain placement 12/28/2021. CT showed enhancing fluid collection with gas in the cul-de-sac, appendectomy bed and extension between rectus muscles anteriorly. Repeat CT 01/01/2022 showing anterior pelvic fluid collection appears resolved, cul-de-sac abscess appears unchanged. #Obesity #Diabetes mellitus Recs: -awaiting possible IR drainage -E.coli susceptible to Zosyn, Continue with IV Zosyn + fluconazole Eden Buenrostro MD, FACP[facility]ENCIO [facility] O: [phone] F: [phone] C: [phone] Subjective Date of service: 01/02/22 Principal diagnosis: Intra-abdominal abscess Interval history: No fever. No new complaints. Tolerating abx. No diarrhea. Reports constipation. Objective - Exam Narrative Exam: Physical Exam: Constitutional: Alert, cooperative. No acute distress Head, Ears, Nose: Normocephalic, atraumatic. External ears, nose normal Eyes: Conjunctivae/corneas clear. No icterus. No ptosis. Neck: Supple, no meningeal signs Cardiovascular: S1, S2 + Respiratory: Good air entry, clear to auscultation bilaterally GI: Soft, no tenderness; bowel sounds normal. No peritoneal signs. Musculoskeletal: No pedal edema, no cyanosis. Skin: No rash or abscess Hem/Lymphatic: No palpable cervical or supraclavicular nodes. No lymphangitis Psych: Mood ok. Affect normal Neurological: Awake, alert, oriented. No gross abnormality - Constitutional Vitals: Vital Signs Temp Pulse Resp BP Pulse Ox 99.3 F 61 18 116/74 97 01/02/22 05:37 01/02/22 05:37 01/02/22 05:37 01/02/22 05:37 01/02/22 10:00 Temperature -Last 24 Hours Temperature 99.3 F Temperature 99.5 F Temperature 99.6 F - Labs CBC & Chem 7: 01/02/22 04:55 01/02/22 04:55 Labs: Abnormal lab results 01/01/22 01/01/22 01/02/22 Range/Units 16:21 22:17 04:55 RBC 3.58 L (3.65-5.03) M/mm3 Hgb 9.8 L (10.1-14.3) gm/dl Hct 29.8 L (30.3-42.9) % [place] % (Auto) 9.9 H (0.0-7.3) % [place] # (Auto) 1.1 H (0.0-0.8) K/mm3 Sodium (137-145) mmol/L Potassium (3.6-5.0) mmol/L BUN (7-17) mg/dL Glucose (65-100) mg/dL POC Glucose 114 H 110 H (70-105) mg/dL Calcium (8.4-10.2) mg/dL 01/02/22 01/02/22 01/02/22 Range/Units 04:55 06:32 07:34 RBC (3.65-5.03) M/mm3 Hgb (10.1-14.3) gm/dl Hct (30.3-42.9) % [place] % (Auto) (0.0-7.3) % [place] # (Auto) (0.0-0.8) K/mm3 Sodium 135 L (137-145) mmol/L Potassium 3.5 L (3.6-5.0) mmol/L BUN 2 L (7-17) mg/dL Glucose 135 H (65-100) mg/dL POC Glucose 120 H 117 H (70-105) mg/dL Calcium 8.1 L (8.4-10.2) mg/dL
[2022-01-02] MEDS: metFORMIN 500 MG TAB PO SCH ×2 (13:12→17:22)
[2022-01-02] MEDS ORDERED: fentaNYL 100 MCG/2 ML INJ IV NR (13:40)
[2022-01-02] MEDS ORDERED: MIDAZOLAM 2 MG/2 ML INJ IV NR (13:40)
[2022-01-02] MEDS ORDERED: LIDOCAINE (1%) 10 MG/1 ML VIAL 20 ML MDV INFILTRATI ONE (16:08)
[2022-01-02] MEDS: NICOTINE 14 MG/24 HR PATCH TD SCH (16:27)
[2022-01-02] MEDS: MULTIVITAMINS ,THERAPEUTIC TAB PO SCH (16:27)
--- NOTE | 2022-01-02 16:36 | Operative Report ---
Operative Report Operative Report: EXAM: 1. CT-guided placement of a transgluteal needle 2. CT-guided aspiration of a pelvic fluid collection through a right transgluteal approach DATE: 01/02/2022 IMPORT EXPORT AGENT: DEJAH BARLOW MD INDICATION: Pelvic fluid collection with residual pain. MEDICATIONS: Please see nursing report for full details. DEVICES: None. CONTRAST: None. PROCEDURE: The risk, benefits, and alternatives were discussed with the patient; written informed consent was obtained. Patient was placed on the gantry in a prone position and her buttocks were prepped and draped in a sterile fashion. W[employer] App[employer] As[employer]er imaging was performed demonstrating the fluid collection in the pelvis. From a right transgluteal approach, the gluteal muscles were anesthetized with 1% lidocaine with epinephrine with a long 22-gauge spinal needle. Afterwards, an 18-gauge needle was advanced under CT guidance and a transgluteal approach into the pelvic fluid collection. Due to the location of the collection, I did not feel comfortable placing a drain but I thought that she would be a good candidate for aspiration. Aspiration was performed and 60-70 mL of purulent fluid was removed and sent to lab for culture. Final CT scan was performed demonstrating no CT complications. Needle was then removed. Patient tolerated the procedure well. No immediate postprocedural complications.. FINDINGS: CT-guided aspiration as described above. IMPRESSION: Successful right transgluteal CT-guided aspiration with removal of 60 to 70 mL of purulent fluid. Not a candidate for transgluteal drain based on location of the fluid collection.
[2022-01-02] MEDS: SODIUM CHLORIDE 0.9% 1000 ML 1,000 ML IV SCH ×2 (18:29→21:13)
--- NOTE | 2022-01-02 19:17 | Progress Note ---
Assessment and Plan Assessment and plan: The patient is a 21-year-old female with morbid obesity who underwent a laparoscopic cholecystectomy and laparoscopic appendectomy on 12/10/2021, intraoperatively had a tear of the appendix with purulence in RLQ and postoperative course complicated by low-grade fevers, RLQ fluid abscess status post IR drainage on 12/14/2021 was doing well until recently she started developing fever increasing abdominal pain. She presented to the emergency room on 12/27/2021, CT abdomen and pelvis revealed intra-abdominal fluid collections with enhancement and gas. IR was consulted and patient underwent another drain placement on 12/28/2021. Infectious diseases was consulted for antibiotic management. Sepsis Intra-abdominal abscess, cultures from 414 growing E. coli on Zosyn and Diflucan IV Obesity Diabetes mellitus type 2 12/29/2021. ID switched antibiotics to IV Zosyn and fluconazole. We will follow-up IR drainage cultures. Continue to monitor drain output. Surgery/IR following for drain management. Consider repeat CT scan. 12/30/2021. Continue IV antibiotics per ID recommendations. Follow-up cultures. Follow-up CBC/BMP 12/31/2021. Continue IV Zosyn and fluconazole. Repeat CT abdomen pelvis with contrast on Saturday. We will follow-up IR drainage cultures. Continue to monitor drain output. Surgery/IR following for drain management. 01/01/2022. Continue IV antibiotics per ID recommendations. Patient is to have repeat CT of the abdomen and pelvis with contrast today. We will follow-up IR drainage cultures. Continue to monitor drain output. Surgery/IR following for drain management. 01/02/2022: Patient is well-appearing, tolerating diet, no significant pains. Fever resolved with stable vital signs. No significant drain output. Dr. Lee performed aspiration of pelvic abscess 70 to 80 mL and sent to the lab for cultures. A drain could not be left in place. History Interval history: Patient is well-appearing, tolerating diet, no significant pains. Fever resolved with stable vital signs. No significant drain output. Dr. Lee performed aspiration of pelvic abscess 70 to 80 mL and sent to the lab for cultures. A drain could not be left in place. Patient remains on Zosyn and Diflucan. Hospitalist Physical - Constitutional Vitals: Temp Pulse Resp BP Pulse Ox 99.1 F 83 92 H 115/59 92 01/02/22 11:16 01/02/22 16:47 01/02/22 16:47 01/02/22 16:47 01/02/22 16:47 General appearance: Present: no acute distress, obese - EENT Eyes: Present: PERRL ENT: hearing intact, clear oral mucosa - Respiratory Respiratory effort: normal Respiratory: bilateral: CTA - Cardiovascular Rhythm: regular - Extremities Extremities: No edema - Abdominal General gastrointestinal: soft, non-tender, other (Pelvic drain is in place without significant output) - Psychiatric Psychiatric: appropriate mood/affect - Neurologic Neurologic: no focal deficits, moves all extremities Results - Labs CBC & Chem 7: 01/02/22 04:55 01/02/22 04:55 Labs: Laboratory Last Values WBC 11.0 K/mm3 (4.5-11.0) 01/02/22 04:55 RBC 3.58 M/mm3 (3.65-5.03) L 01/02/22 04:55 Hgb 9.8 gm/dl (10.1-14.3) L 01/02/22 04:55 Hct 29.8 % (30.3-42.9) L 01/02/22 04:55 MCV 84 fl (79-97) 01/02/22 04:55 MCH 28 pg (28-32) 01/02/22 04:55 MCHC 33 % (30-34) 01/02/22 04:55 RDW 14.5 % (13.2-15.2) 01/02/22 04:55 Plt Count 309 K/mm3 (140-440) 01/02/22 04:55 Lymph % (Auto) 19.3 % (13.4-35.0) 01/02/22 04:55 [place] % (Auto) 9.9 % (0.0-7.3) H 01/02/22 04:55 Eos % (Auto) 1.3 % (0.0-4.3) 01/02/22 04:55 Baso % (Auto) 0.3 % (0.0-1.8) 01/02/22 04:55 Lymph # (Auto) 2.1 K/mm3 (1.2-5.4) 01/02/22 04:55 [place] # (Auto) 1.1 K/mm3 (0.0-0.8) H 01/02/22 04:55 Eos # (Auto) 0.1 K/mm3 (0.0-0.4) 01/02/22 04:55 Baso # (Auto) 0.0 K/mm3 (0.0-0.1) 01/02/22 04:55 Seg Neutrophils % 69.2 % (40.0-70.0) 01/02/22 04:55 Seg Neutrophils # 7.6 K/mm3 (1.8-7.7) 01/02/22 04:55 Sodium 135 mmol/L (137-145) L 01/02/22 04:55 Potassium 3.5 mmol/L (3.6-5.0) L 01/02/22 04:55 Chloride 98.1 mmol/L (98-107) 01/02/22 04:55 Carbon Dioxide 25 mmol/L (22-30) 01/02/22 04:55 Anion Gap 15 mmol/L 01/02/22 04:55 BUN 2 mg/dL (7-17) L 01/02/22 04:55 Creatinine 0.7 mg/dL (0.6-1.2) 01/02/22 04:55 Estimated GFR > 60 ml/min 01/02/22 04:55 BUN/Creatinine Ratio 3 % 01/02/22 04:55 Glucose 135 mg/dL (65-100) H 01/02/22 04:55 POC Glucose 110 mg/dL (70-105) H 01/02/22 10:31 Lactic Acid 1.80 mmol/L (0.7-2.0) 12/27/21 10:10 Calcium 8.1 mg/dL (8.4-10.2) L 01/02/22 04:55 Total Bilirubin 0.40 mg/dL (0.1-1.2) 12/27/21 16:39 AST 14 units/L (5-40) 12/27/21 16:39 ALT 11 units/L (7-56) 12/27/21 16:39 Alkaline Phosphatase 80 units/L (35-129) 12/27/21 16:39 Total Protein 7.0 g/dL (6.3-8.2) 12/27/21 16:39 Albumin 2.9 g/dL (3.9-5) L 12/27/21 16:39 Albumin/Globulin Ratio 0.7 % 12/27/21 16:39 Urine Color Yellow (Yellow) 12/27/21 Unknown Urine Turbidity Hazy (Clear) 12/27/21 Unknown Urine pH 6.0 (5.0-7.0) 12/27/21 Unknown Ur Specific [place] 1.018 (1.003-1.030) 12/27/21 Unknown Urine Protein 30 mg/dl mg/dL (Negative) 12/27/21 Unknown Urine Glucose (UA) Neg mg/dL (Negative) 12/27/21 Unknown Urine Ketones Tr mg/dL (Negative) 12/27/21 Unknown Urine Blood Sm (Negative) 12/27/21 Unknown Urine Nitrite Neg (Negative) 12/27/21 Unknown Urine Bilirubin Neg (Negative) 12/27/21 Unknown Urine Urobilinogen < 2.0 mg/dL (<2.0) 12/27/21 Unknown Ur Leukocyte Esterase Mod (Negative) 12/27/21 Unknown Urine WBC (Auto) 11.0 /HPF (0.0-6.0) H 12/27/21 Unknown Urine RBC (Auto) 2.0 /HPF (0.0-6.0) 12/27/21 Unknown U Epithel Cells (Auto) 17.0 /HPF (0-13.0) H 12/27/21 Unknown Urine Bacteria (Auto) 1+ /HPF (Negative) 12/27/21 Unknown Urine Mucus Few /HPF 12/27/21 Unknown Urine HCG, Qual Negative (Negative) 12/27/21 11:50 Nasal Screen MRSA (PCR) Negative (Negative) 12/28/21 02:23 Jose/IV: Voiding Method Toilet Active Medications - Current Medications Current Medications: Generic Name Dose Route Start Last Admin Trade Name Freq PRN Reason Stop Dose Admin Acetaminophen 650 mg 12/27/21 17:00 12/29/21 21:39 Acetaminophen 325 Mg Tab PO 650 mg Q4H PRN Administration Pain MILD(1-3)/Fever >100.5/ZAPATA Albuterol 2.5 mg 12/27/21 20:00 Albuterol 2.5 Mg/3 Ml Nebu IH Q4HRT PRN Shortness Of Breath Fentanyl 100 mcg 01/02/22 13:40 01/02/22 16:10 Fentanyl 100 Mcg/2 Ml Inj IV 01/02/22 20:00 100 mcg ONCE NR Administration Piperacillin Sod/Tazobactam Sod 4.5 gm in 100 mls @ 200 mls/hr 12/29/21 12:00 01/02/22 17:22 Zosyn/Ns 4.5gm/100ml IV 200 mls/hr Q6HR FUNMI Administration Protocol Fluconazole 200 mls @ 100 mls/hr 12/29/21 12:00 01/02/22 09:29 Diflucan IV 100 mls/hr Q24HR FUNMI Administration Protocol Sodium Chloride 1,000 mls @ 50 mls/hr 12/31/21 15:15 01/02/22 18:29 Nacl 0.9% 1000 Ml IV 50 mls/hr DIRECT FUNMI Administration Ibuprofen 800 mg 12/31/21 11:43 12/31/21 12:10 Ibuprofen 800 Mg Tab PO 800 mg Q8H PRN Administration Pain, Mild (1-3) Insulin Human Lispro 0 unit 12/28/21 22:00 01/02/22 16:48 Insulin Lispro 100 Unit/Ml SUB-Q Not Given ACHS [facility] Protocol Metformin HCl 500 mg 12/29/21 17:00 01/02/22 17:22 Metformin 500 Mg Tab PO 500 mg BIDDIAB FUNMI Administration Midazolam HCl 2 mg 01/02/22 13:40 01/02/22 16:10 Midazolam 2 Mg/2 Ml Inj IV 01/02/22 20:00 2 mg ONCE NR Administration Morphine Sulfate 2 mg 12/27/21 17:00 01/02/22 18:25 Morphine 2 Mg/1 Ml Inj IV 2 mg Q4H PRN Administration Pain, Moderate (4-6) Multivitamins 1 each 12/27/21 18:00 01/02/22 16:27 Multivitamins ,Therapeutic Tab PO Not Given DAILY [facility] Nicotine 14 mg 12/31/21 10:00 01/02/22 16:27 Nicotine 14 Mg/24 Hr Patch TD Not Given QDAY [facility] Ondansetron HCl 4 mg 12/31/21 17:53 01/02/22 17:22 Ondansetron 4 Mg/2 Ml Inj IV 4 mg Q4H PRN Administration Nausea And Vomiting Sodium Chloride 10 ml 12/27/21 22:00 01/02/22 09:24 Sodium Chloride 0.9% 10 Ml Flush Syringe IV 10 ml BID FUNMI Administration Sodium Chloride 10 ml 12/27/21 17:00 Sodium Chloride 0.9% 10 Ml Flush Syringe IV PRN PRN LINE FLUSH Nutrition/Malnutrition Assess - Dietary Evaluation Nutrition/Malnutrition Findings: Nutrition Notes Start: 12/28/21 11:07 Freq: Status: Active Protocol: Document 01/01/22 18:36 KIP (Rec: 01/01/22 18:48 KIP [id number]) Nutrition Notes Initial or Follow up Brief Note Current Diet Consistent Carbohydrates Diet (since D 12/28), NPO (from 00:01). Height 5 ft 5 in Weight 102.2 kg [place] Body Weight (kg) 56.81 BMI 37.5 Weight change and time frame 0.15 Kg body weight gain in 4 days reported. Weight Status Obese Subjective/Other Information RD consult for routine F/U on Dietary Advancement. Pt is now on PO, and PO intake of meals has been Fair (50-75 %), according to ADL notes. Pt will be on NPO from midnight on 01/02, due to drainage procedure. CT scan detected a second fluid deposit in the rectouterine space that might not be reachable from the percutaneous standpoint; will attempt a transgluteal drainage on 01/02. Pt is on Room Air, O2 saturation @ 97%, according to Vital Signs note. Percent of energy/protein needs met: Prescribed Consistent Carbohydrates Diet provides for energy/protein needs (2, 061 Kcal/91 g) during LOS. Is patient on ventilator? No Is Patient Ambulatory and/or Out of Bed Yes REE-([place]-ambulatory/OOB) [ 2311.244 [id number]] Kcal/Kg value to use for calculation 15 Approximate Energy Requirements Using 1533 kcal/Kg Calculation Used for Recommendations Kcal/kg Additional Notes Protein: 0.8-1 g/Kg AdjBW; 64- 80 g/day. Fluids: 1 ml/Kcal, or as per MD. Nutrition Intervention Change Diet Order: Continue Consistent Carbohydrates Diet, and resume after procedure, as tolerated . Follow-Up By: 01/08/22 Additional Comments When pertinent, continue monitoring food tolerance, %PO intake of meals, and BM.
[2022-01-03] MEDS: ONDANSETRON 4 MG/2 ML INJ IV PRN ×4 (03:55→22:00)
[2022-01-03] MEDS: MORPHINE 2 MG/1 ML INJ IV PRN ×4 (03:55→22:00)
[2022-01-03] MEDS: PIPERACIL/TAZOBACTA 4.5/NS 100 4.5 GM/100 ML VIAL IV SCH ×3 (05:46→21:49)
--- NOTE | 2022-01-03 08:22 | Progress Note ---
Assessment and Plan Assessment and plan: CT-guided aspiration of a pelvic fluid collection through a right transgluteal approach Brief history and daily hospital course 21-year-old obese female patient with morbid obesity who underwent a laparoscopic cholecystectomy and laparoscopic appendectomy on 12/10/2021, intraop eratively had a tear of the appendix with purulence in RLQ and postoperative course complicated by low-grade fevers, RLQ fluid abscess status post IR drainage on 12/14/2021 was doing well until recently she started developing fever increasing abdominal pain. She presented to the emergency room on 12/27/2021, CT abdomen and pelvis revealed intra-abdominal fluid collections with enhancement and gas. IR was consulted and patient underwent another drain placement on 12/28/2021. Infectious diseases was consulted for antibiotic management. 12/29/2021. ID switched antibiotics to IV Zosyn and fluconazole. We will follow-up IR drainage cultures. Continue to monitor drain output. Surgery/IR following for drain management. Consider repeat CT scan. 12/30/2021. Continue IV antibiotics per ID recommendations. Follow-up cultures. Follow-up CBC/BMP 12/31/2021. Continue IV Zosyn and fluconazole. Repeat CT abdomen pelvis with contrast on Saturday. We will follow-up IR drainage cultures. Continue to monitor drain output. Surgery/IR following for drain management. 01/01/2022. Continue IV antibiotics per ID recommendations. Patient is to have repeat CT of the abdomen and pelvis with contrast today. We will follow-up IR drainage cultures. Continue to monitor drain output. Surgery/IR following for drain management. 01/02/2022: Patient is well-appearing, tolerating diet, no significant pains. Fever resolved with stable vital signs. No significant drain output. Dr. Lee performed aspiration of pelvic abscess 70 to 80 mL and sent to the lab for cultures. A drain could not be left in place. Assessment and plan: --Intra-abdominal abscess Current Visit: Yes Status: Acute At present pain fairly well controlled. Awaiting surgical intervention and consultation. IV fluid resuscitation and supportive care. Serial abdominal exam, CT scan abdomen and pelvis, complete s/p drain placement by IR on 12/28/2021 --pelvic fluid collection CT-guided aspiration of a pelvic fluid collection through a right transgluteal approach[01/02/2022] --Sepsis Intra-abdominal abscess, cultures positive for E. coli Continue IV Zosyn and Diflucan , ID following - Obesity hypoventilation syndrome Current Visit: Yes Status: Acute Balanced diet, increase physical activity discharge, outpatient pulmonary f ollow-up for sleep study. --Diabetes mellitus Current Visit: Yes Status: Acute At present fairly well controlled Accu-Chek 127 and 150 Consistent carbohydrate diet, Accu-Chek, hypoglycemia protocol, insulin protocol. --Obesity; BMI 37.5 -- DVT prophylaxis Current Visit: Yes Status: Acute SCD to bilateral lower extremities while in bed -- Advance care planning Current Visit: Yes Status: Acute Disease education conducted, care plan discussed, diagnoses discussed, prognosis discussed, patient is full code. Patient acknowledges understanding and agreement with care plan, Resolved we will monitor the patient and adjust management as needed Interventional radiology/vascular, surgeon and ID evaluation and recommendations noted and appreciated Continue current management Discharge planning per case management History Interval history: I have seen and examined the patient at the bedside Patient's chart and medications reviewed Patient feels slightly better slightly anxious Vital signs noted Hospitalist Physical - Constitutional Vitals: Temp Pulse Resp BP Pulse Ox 98.0 F 72 20 124/74 93 01/03/22 05:14 01/03/22 05:14 01/03/22 05:14 01/03/22 05:14 01/03/22 05:14 General appearance: Present: no acute distress, well-nourished, obese - EENT Eyes: Present: PERRL, EOM intact - Neck Neck: Present: supple, normal ROM - Respiratory Respiratory effort: normal Respiratory: bilateral: diminished, negative: rales, rhonchi, wheezing - Cardiovascular Rhythm: regular Heart Sounds: Present: S1 & S2 - Extremities Extremities: no ischemia, No edema - Abdominal General gastrointestinal: soft, non-tender, non-distended, normal bowel sounds, other (Drain in place) - Integumentary Integumentary: Present: clear, warm - Psychiatric Psychiatric: appropriate mood/affect, cooperative - Neurologic Neurologic: CNII-XII intact, moves all extremities Results - Labs CBC & Chem 7: 01/02/22 04:55 01/02/22 04:55 Labs: Laboratory Last Values WBC 11.0 K/mm3 (4.5-11.0) 01/02/22 04:55 RBC 3.58 M/mm3 (3.65-5.03) L 01/02/22 04:55 Hgb 9.8 gm/dl (10.1-14.3) L 01/02/22 04:55 Hct 29.8 % (30.3-42.9) L 01/02/22 04:55 MCV 84 fl (79-97) 01/02/22 04:55 MCH 28 pg (28-32) 01/02/22 04:55 MCHC 33 % (30-34) 01/02/22 04:55 RDW 14.5 % (13.2-15.2) 01/02/22 04:55 Plt Count 309 K/mm3 (140-440) 01/02/22 04:55 Lymph % (Auto) 19.3 % (13.4-35.0) 01/02/22 04:55 [place] % (Auto) 9.9 % (0.0-7.3) H 01/02/22 04:55 Eos % (Auto) 1.3 % (0.0-4.3) 01/02/22 04:55 Baso % (Auto) 0.3 % (0.0-1.8) 01/02/22 04:55 Lymph # (Auto) 2.1 K/mm3 (1.2-5.4) 01/02/22 04:55 [place] # (Auto) 1.1 K/mm3 (0.0-0.8) H 01/02/22 04:55 Eos # (Auto) 0.1 K/mm3 (0.0-0.4) 01/02/22 04:55 Baso # (Auto) 0.0 K/mm3 (0.0-0.1) 01/02/22 04:55 Seg Neutrophils % 69.2 % (40.0-70.0) 01/02/22 04:55 Seg Neutrophils # 7.6 K/mm3 (1.8-7.7) 01/02/22 04:55 Sodium 135 mmol/L (137-145) L 01/02/22 04:55 Potassium 3.5 mmol/L (3.6-5.0) L 01/02/22 04:55 Chloride 98.1 mmol/L (98-107) 01/02/22 04:55 Carbon Dioxide 25 mmol/L (22-30) 01/02/22 04:55 Anion Gap 15 mmol/L 01/02/22 04:55 BUN 2 mg/dL (7-17) L 01/02/22 04:55 Creatinine 0.7 mg/dL (0.6-1.2) 01/02/22 04:55 Estimated GFR > 60 ml/min 01/02/22 04:55 BUN/Creatinine Ratio 3 % 01/02/22 04:55 Glucose 135 mg/dL (65-100) H 01/02/22 04:55 POC Glucose 113 mg/dL (70-105) H 01/02/22 21:26 Lactic Acid 1.80 mmol/L (0.7-2.0) 12/27/21 10:10 Calcium 8.1 mg/dL (8.4-10.2) L 01/02/22 04:55 Total Bilirubin 0.40 mg/dL (0.1-1.2) 12/27/21 16:39 AST 14 units/L (5-40) 12/27/21 16:39 ALT 11 units/L (7-56) 12/27/21 16:39 Alkaline Phosphatase 80 units/L (35-129) 12/27/21 16:39 Total Protein 7.0 g/dL (6.3-8.2) 12/27/21 16:39 Albumin 2.9 g/dL (3.9-5) L 12/27/21 16:39 Albumin/Globulin Ratio 0.7 % 12/27/21 16:39 Urine Color Yellow (Yellow) 12/27/21 Unknown Urine Turbidity Hazy (Clear) 12/27/21 Unknown Urine pH 6.0 (5.0-7.0) 12/27/21 Unknown Ur Specific [place] 1.018 (1.003-1.030) 12/27/21 Unknown Urine Protein 30 mg/dl mg/dL (Negative) 12/27/21 Unknown Urine Glucose (UA) Neg mg/dL (Negative) 12/27/21 Unknown Urine Ketones Tr mg/dL (Negative) 12/27/21 Unknown Urine Blood Sm (Negative) 12/27/21 Unknown Urine Nitrite Neg (Negative) 12/27/21 Unknown Urine Bilirubin Neg (Negative) 12/27/21 Unknown Urine Urobilinogen < 2.0 mg/dL (<2.0) 12/27/21 Unknown Ur Leukocyte Esterase Mod (Negative) 12/27/21 Unknown Urine WBC (Auto) 11.0 /HPF (0.0-6.0) H 12/27/21 Unknown Urine RBC (Auto) 2.0 /HPF (0.0-6.0) 12/27/21 Unknown U Epithel Cells (Auto) 17.0 /HPF (0-13.0) H 12/27/21 Unknown Urine Bacteria (Auto) 1+ /HPF (Negative) 12/27/21 Unknown Urine Mucus Few /HPF 12/27/21 Unknown Urine HCG, Qual Negative (Negative) 12/27/21 11:50 Nasal Screen MRSA (PCR) Negative (Negative) 12/28/21 02:23 Jose/IV: Voiding Method Toilet Active Medications - Current Medications Current Medications: Generic Name Dose Route Start Last Admin Trade Name Freq PRN Reason Stop Dose Admin Acetaminophen 650 mg 12/27/21 17:00 12/29/21 21:39 Acetaminophen 325 Mg Tab PO 650 mg Q4H PRN Administration Pain MILD(1-3)/Fever >100.5/ZAPATA Albuterol 2.5 mg 12/27/21 20:00 Albuterol 2.5 Mg/3 Ml Nebu IH Q4HRT PRN Shortness Of Breath Piperacillin Sod/Tazobactam Sod 4.5 gm in 100 mls @ 200 mls/hr 12/29/21 12:00 01/03/22 05:46 Zosyn/Ns 4.5gm/100ml IV 200 mls/hr Q6HR FUNMI Administration Protocol Fluconazole 200 mls @ 100 mls/hr 12/29/21 12:00 01/03/22 02:41 Diflucan IV Infused Q24HR FUNMI Infusion Protocol Sodium Chloride 1,000 mls @ 50 mls/hr 12/31/21 15:15 01/02/22 21:13 Nacl 0.9% 1000 Ml IV 50 mls/hr DIRECT FUNMI Administration Ibuprofen 800 mg 12/31/21 11:43 12/31/21 12:10 Ibuprofen 800 Mg Tab PO 800 mg Q8H PRN Administration Pain, Mild (1-3) Insulin Human Lispro 0 unit 12/28/21 22:00 01/02/22 23:41 Insulin Lispro 100 Unit/Ml SUB-Q Not Given ACHS FUNMI Protocol Metformin HCl 500 mg 12/29/21 17:00 01/02/22 17:22 Metformin 500 Mg Tab PO 500 mg BIDDIAB FUNMI Administration Morphine Sulfate 2 mg 12/27/21 17:00 01/03/22 03:55 Morphine 2 Mg/1 Ml Inj IV 2 mg Q4H PRN Administration Pain, Moderate (4-6) Multivitamins 1 each 12/27/21 18:00 01/02/22 16:27 Multivitamins ,Therapeutic Tab PO Not Given DAILY FUNMI Nicotine 14 mg 12/31/21 10:00 01/02/22 16:27 Nicotine 14 Mg/24 Hr Patch TD Not Given QDAY FUNMI Ondansetron HCl 4 mg 12/31/21 17:53 01/03/22 03:55 Ondansetron 4 Mg/2 Ml Inj IV 4 mg Q4H PRN Administration Nausea And Vomiting Sodium Chloride 10 ml 12/27/21 22:00 01/03/22 03:54 Sodium Chloride 0.9% 10 Ml Flush Syringe IV 10 ml BID FUNMI Administration Sodium Chloride 10 ml 12/27/21 17:00 Sodium Chloride 0.9% 10 Ml Flush Syringe IV PRN PRN LINE FLUSH Nutrition/Malnutrition Assess - Dietary Evaluation Nutrition/Malnutrition Findings: Nutrition Notes Start: 12/28/21 11:07 Freq: Status: Active Protocol: Document 01/01/22 18:36 KIP (Rec: 01/01/22 18:48 KIP [email or web address]) Nutrition Notes Initial or Follow up Brief Note Current Diet Consistent Carbohydrates Diet (since D 12/28), NPO (from 00:01). Height 5 ft 5 in Weight 102.2 kg [place] Body Weight (kg) 56.81 BMI 37.5 Weight change and time frame 0.15 Kg body weight gain in 4 days reported. Weight Status Obese Subjective/Other Information RD consult for routine F/U on Dietary Advancement. Pt is now on PO, and PO intake of meals has been Fair (50-75 %), according to ADL notes. Pt will be on NPO from midnight on 01/02, due to drainage procedure. CT scan detected a second fluid deposit in the rectouterine space that might not be reachable from the percutaneous standpoint; will attempt a transgluteal drainage on 01/02. Pt is on Room Air, O2 saturation @ 97%, according to Vital Signs note. Percent of energy/protein needs met: Prescribed Consistent Carbohydrates Diet provides for energy/protein needs (2, 061 Kcal/91 g) during LOS. Is patient on ventilator? No Is Patient Ambulatory and/or Out of Bed Yes REE-([place]-St. Jeor-ambulatory/OOB) [ 2311.244 NUTR.[id number]] Kcal/Kg value to use for calculation 15 Approximate Energy Requirements Using 1533 kcal/Kg Calculation Used for Recommendations Kcal/kg Additional Notes Protein: 0.8-1 g/Kg AdjBW; 64- 80 g/day. Fluids: 1 ml/Kcal, or as per MD. Nutrition Intervention Change Diet Order: Continue Consistent Carbohydrates Diet, and resume after procedure, as tolerated . Follow-Up By: 01/08/22 Additional Comments When pertinent, continue monitoring food tolerance, %PO intake of meals, and BM.
[2022-01-03] MEDS: SODIUM CHLORIDE 0.9% 1000 ML 1,000 ML IV SCH (09:49)
[2022-01-03] MEDS: INSULIN LISPRO 100 UNIT/ML SUB-Q SCH ×4 (09:50→21:55)
[2022-01-03] MEDS: metFORMIN 500 MG TAB PO SCH ×2 (09:52→17:08)
[2022-01-03] MEDS: NICOTINE 14 MG/24 HR PATCH TD SCH (09:52)
[2022-01-03] MEDS: MULTIVITAMINS ,THERAPEUTIC TAB PO SCH (09:52)
[2022-01-03] MEDS: FLUCONAZOLE 400 MG 200 ML IV SCH (09:58)
--- NOTE | 2022-01-03 11:03 | Progress Note ---
Assessment and Plan Cultures: 12/27/2021 blood culture: No growth 12/27/2021 urine culture: Mixed ludwin 12/28/2021 IR drain culture: E.coli A/P: 21-year-old female with morbid obesity who underwent a laparoscopic bipin cystectomy and laparoscopic appendectomy on 12/10/2021, intraoperatively had a tear of the appendix with purulence in RLQ and postoperative course complicated by low-grade fevers, RLQ fluid abscess status post IR drainage on 12/14/2021 was doing well until recently she started developing fever increasing abdominal pain, now with: #Sepsis, secondary to intra-abdominal abscess: s/p laparoscopic cholecystectomy and laparoscopic appendectomy on 12/10/2021, drain placement by IR on 12/14/2021. Now s/p IR drain placement 12/28/2021. CT showed enhancing fluid collection with gas in the cul-de-sac, appendectomy bed and extension between rectus muscles anteriorly. Repeat CT 01/01/2022 showing anterior pelvic fluid collection appears resolved, cul-de-sac abscess appears unchanged. Underwent IR aspiration of pelvic fluid collection 01/02/2022, about 60 to 70 cc of purulent fluid was aspirated, drain was not placed due to the location. #Obesity #Diabetes mellitus Recs: -Continue with IV Zosyn + fluconazole -Upon discharge, switch to p.o. levofloxacin 750 mg daily plus Flagyl 500 mg twice daily for 10 days -Discussed follow-up options with patient, to be absolutely certain of resolution of abscess, she would need another CT scan at the end of treatment. Or she could complete her antibiotic therapy and monitor for any signs of worsening or relapse. Discussed risks of additional radiation exposure especially considering she is young. She wants to be absolutely certain, hence recommend another CT scan in about 2 weeks to ensure no residual disease -drain management per IR/surgery Eden Buenrostro MD, FACFLORENCIO [facility] O: [phone] F: [phone] C: [phone] Subjective Date of service: 01/03/22 Principal diagnosis: Intra-abdominal abscess Interval history: Denies any complaints. No fever. Underwent IR aspiration of pelvic fluid collection, about 60 to 70 cc of purulent fluid was aspirated, drain was not placed due to the location. Objective - Exam Narrative Exam: Physical Exam: Constitutional: Alert, cooperative. No acute distress Head, Ears, Nose: Normocephalic, atraumatic. External ears, nose normal Eyes: Conjunctivae/corneas clear. No icterus. No ptosis. Neck: Supple, no meningeal signs Cardiovascular: S1, S2 + Respiratory: Good air entry, clear to auscultation bilaterally GI: Soft, no tenderness; bowel sounds normal. No peritoneal signs. Musculoskeletal: No pedal edema, no cyanosis. Skin: No rash or abscess Hem/Lymphatic: No palpable cervical or supraclavicular nodes. No lymphangitis Psych: Mood ok. Affect normal Neurological: Awake, alert, oriented. No gross abnormality - Constitutional Vitals: Vital Signs Temp Pulse Resp BP Pulse Ox 98.0 F 72 20 124/74 93 01/03/22 05:14 01/03/22 05:14 01/03/22 05:14 01/03/22 05:14 01/03/22 05:14 Temperature -Last 24 Hours Temperature 98.0 F Temperature 98.5 F Temperature 99.1 F - Labs CBC & Chem 7: 01/02/22 04:55 01/02/22 04:55 Labs: Abnormal lab results 01/02/22 01/02/22 01/02/22 Range/Units 10:31 17:17 21:26 POC Glucose 110 H 110 H 113 H (70-105) mg/dL
--- NOTE | 2022-01-03 15:22 | Progress Note ---
Assessment and Plan - Patient Problems (1) Intra-abdominal abscess Current Visit: Yes Status: Acute Plan to address problem: 1) Okay for discharge from my perspective. 2) Follow ID recommendations. 3) Follow up in my office in 1 week Subjective Date of service: 01/03/22 Patient Reports: Positive: feels better, pain is less, afebrile, other (I read Dr. Lee's procedure note and Dr. Bowles's note of today.) Objective Vital Signs - 12hr 01/03/22 01/03/22 05:14 11:36 Temperature 98.0 F 98.9 F Pulse Rate 72 67 Respiratory 20 18 Rate Blood Pressure 124/74 144/84 O2 Sat by Pulse 93 96 Oximetry - Abdomen PM_46_EXABD1 4, PM_46_EXABD1 6, PM_46_EXABD1 8 Hernia: none - Labs 01/02/22 04:55 01/02/22 04:55
--- NOTE | 2022-01-03 15:59 | Cat Scan Report ---
PLEASE SEE OPERATIVE REPORT ON 01/02/22 @1634 MTDD
[2022-01-03] MEDS ORDERED: MAGNESIUM HYDROXIDE (MOM) ORAL LIQD UDC PO PRN (17:45)
[2022-01-03] MEDS ORDERED: MAGNESIUM HYDROXIDE (MOM) ORAL LIQD UDC PO ONE (17:45)
[2022-01-04] MEDS: MORPHINE 2 MG/1 ML INJ IV PRN ×3 (02:54→11:52)
[2022-01-04] MEDS: ONDANSETRON 4 MG/2 ML INJ IV PRN ×3 (02:55→11:52)
[2022-01-04] MEDS: SODIUM CHLORIDE 0.9% 1000 ML 1,000 ML IV SCH (03:00)
[2022-01-04] MEDS: PIPERACIL/TAZOBACTA 4.5/NS 100 4.5 GM/100 ML VIAL IV SCH ×2 (05:31→11:47)
[2022-01-04] MEDS: INSULIN LISPRO 100 UNIT/ML SUB-Q SCH ×3 (09:19→12:03)
[2022-01-04] MEDS: MULTIVITAMINS ,THERAPEUTIC TAB PO SCH (09:21)
[2022-01-04] MEDS: NICOTINE 14 MG/24 HR PATCH TD SCH (09:21)
[2022-01-04] MEDS: metFORMIN 500 MG TAB PO SCH (09:21)
--- NOTE | 2022-01-04 10:02 | Progress Note ---
Assessment and Plan Assessment and plan: CT-guided aspiration of a pelvic fluid collection through a right transgluteal approach Brief history and daily hospital course 21-year-old obese female patient with morbid obesity who underwent a laparoscopic cholecystectomy and laparoscopic appendectomy on 12/10/2021, intraop eratively had a tear of the appendix with purulence in RLQ and postoperative course complicated by low-grade fevers, RLQ fluid abscess status post IR drainage on 12/14/2021 was doing well until recently she started developing fever increasing abdominal pain. She presented to the emergency room on 12/27/2021, CT abdomen and pelvis revealed intra-abdominal fluid collections with enhancement and gas. IR was consulted and patient underwent another drain placement on 12/28/2021. Infectious diseases was consulted for antibiotic management. 12/29/2021. ID switched antibiotics to IV Zosyn and fluconazole. We will follow-up IR drainage cultures. Continue to monitor drain output. Surgery/IR following for drain management. Consider repeat CT scan. 12/30/2021. Continue IV antibiotics per ID recommendations. Follow-up cultures. Follow-up CBC/BMP 12/31/2021. Continue IV Zosyn and fluconazole. Repeat CT abdomen pelvis with contrast on Saturday. We will follow-up IR drainage cultures. Continue to monitor drain output. Surgery/IR following for drain management. 01/01/2022. Continue IV antibiotics per ID recommendations. Patient is to have repeat CT of the abdomen and pelvis with contrast today. We will follow-up IR drainage cultures. Continue to monitor drain output. Surgery/IR following for drain management. 01/02/2022: Patient is well-appearing, tolerating diet, no significant pains. Fever resolved with stable vital signs. No significant drain output. Dr. Lee performed aspiration of pelvic abscess 70 to 80 mL and sent to the lab for cultures. A drain could not be left in place. Assessment and plan: --Intra-abdominal abscess Current Visit: Yes Status: Acute At present pain fairly well controlled. Awaiting surgical intervention and consultation. IV fluid resuscitation and supportive care. Serial abdominal exam, CT scan abdomen and pelvis, complete s/p drain placement by IR on 12/28/2021 --pelvic fluid collection CT-guided aspiration of a pelvic fluid collection through a right transgluteal approach[01/02/2022] --Sepsis Intra-abdominal abscess, cultures positive for E. coli Continue IV Zosyn and Diflucan , ID following - Obesity hypoventilation syndrome Current Visit: Yes Status: Acute Balanced diet, increase physical activity discharge, outpatient pulmonary f ollow-up for sleep study. --Diabetes mellitus Current Visit: Yes Status: Acute At present fairly well controlled Accu-Chek 127 and 150 Consistent carbohydrate diet, Accu-Chek, hypoglycemia protocol, insulin protocol. --Obesity; BMI 37.5 -- DVT prophylaxis Current Visit: Yes Status: Acute SCD to bilateral lower extremities while in bed -- Advance care planning Current Visit: Yes Status: Acute Disease education conducted, care plan discussed, diagnoses discussed, prognosis discussed, patient is full code. Patient acknowledges understanding and agreement with care plan, Resolved we will monitor the patient and adjust management as needed Interventional radiology/vascular, surgeon and ID evaluation and recommendations noted and appreciated Continue current management Discharge planning per case management Hospitalist Physical - Constitutional Vitals: Temp Pulse Resp BP Pulse Ox 98.3 F 95 H 18 135/92 99 01/03/22 21:42 01/03/22 21:42 01/03/22 21:42 01/03/22 21:42 01/03/22 22:00 General appearance: Present: no acute distress, well-nourished, obese Results - Labs CBC & Chem 7: 01/02/22 04:55 01/02/22 04:55 Labs: Laboratory Last Values WBC 11.0 K/mm3 (4.5-11.0) 01/02/22 04:55 RBC 3.58 M/mm3 (3.65-5.03) L 01/02/22 04:55 Hgb 9.8 gm/dl (10.1-14.3) L 01/02/22 04:55 Hct 29.8 % (30.3-42.9) L 01/02/22 04:55 MCV 84 fl (79-97) 01/02/22 04:55 MCH 28 pg (28-32) 01/02/22 04:55 MCHC 33 % (30-34) 01/02/22 04:55 RDW 14.5 % (13.2-15.2) 01/02/22 04:55 Plt Count 309 K/mm3 (140-440) 01/02/22 04:55 Lymph % (Auto) 19.3 % (13.4-35.0) 01/02/22 04:55 [place] % (Auto) 9.9 % (0.0-7.3) H 01/02/22 04:55 Eos % (Auto) 1.3 % (0.0-4.3) 01/02/22 04:55 Baso % (Auto) 0.3 % (0.0-1.8) 01/02/22 04:55 Lymph # (Auto) 2.1 K/mm3 (1.2-5.4) 01/02/22 04:55 [place] # (Auto) 1.1 K/mm3 (0.0-0.8) H 01/02/22 04:55 Eos # (Auto) 0.1 K/mm3 (0.0-0.4) 01/02/22 04:55 Baso # (Auto) 0.0 K/mm3 (0.0-0.1) 01/02/22 04:55 Seg Neutrophils % 69.2 % (40.0-70.0) 01/02/22 04:55 Seg Neutrophils # 7.6 K/mm3 (1.8-7.7) 01/02/22 04:55 Sodium 135 mmol/L (137-145) L 01/02/22 04:55 Potassium 3.5 mmol/L (3.6-5.0) L 01/02/22 04:55 Chloride 98.1 mmol/L (98-107) 01/02/22 04:55 Carbon Dioxide 25 mmol/L (22-30) 01/02/22 04:55 Anion Gap 15 mmol/L 01/02/22 04:55 BUN 2 mg/dL (7-17) L 01/02/22 04:55 Creatinine 0.7 mg/dL (0.6-1.2) 01/02/22 04:55 Estimated GFR > 60 ml/min 01/02/22 04:55 BUN/Creatinine Ratio 3 % 01/02/22 04:55 Glucose 135 mg/dL (65-100) H 01/02/22 04:55 POC Glucose 103 mg/dL (70-105) 01/04/22 07:55 Lactic Acid 1.80 mmol/L (0.7-2.0) 12/27/21 10:10 Calcium 8.1 mg/dL (8.4-10.2) L 01/02/22 04:55 Total Bilirubin 0.40 mg/dL (0.1-1.2) 12/27/21 16:39 AST 14 units/L (5-40) 12/27/21 16:39 ALT 11 units/L (7-56) 12/27/21 16:39 Alkaline Phosphatase 80 units/L (35-129) 12/27/21 16:39 Total Protein 7.0 g/dL (6.3-8.2) 12/27/21 16:39 Albumin 2.9 g/dL (3.9-5) L 12/27/21 16:39 Albumin/Globulin Ratio 0.7 % 12/27/21 16:39 Urine Color Yellow (Yellow) 12/27/21 Unknown Urine Turbidity Hazy (Clear) 12/27/21 Unknown Urine pH 6.0 (5.0-7.0) 12/27/21 Unknown Ur Specific [place] 1.018 (1.003-1.030) 12/27/21 Unknown Urine Protein 30 mg/dl mg/dL (Negative) 12/27/21 Unknown Urine Glucose (UA) Neg mg/dL (Negative) 12/27/21 Unknown Urine Ketones Tr mg/dL (Negative) 12/27/21 Unknown Urine Blood Sm (Negative) 12/27/21 Unknown Urine Nitrite Neg (Negative) 12/27/21 Unknown Urine Bilirubin Neg (Negative) 12/27/21 Unknown Urine Urobilinogen < 2.0 mg/dL (<2.0) 12/27/21 Unknown Ur Leukocyte Esterase Mod (Negative) 12/27/21 Unknown Urine WBC (Auto) 11.0 /HPF (0.0-6.0) H 12/27/21 Unknown Urine RBC (Auto) 2.0 /HPF (0.0-6.0) 12/27/21 Unknown U Epithel Cells (Auto) 17.0 /HPF (0-13.0) H 12/27/21 Unknown Urine Bacteria (Auto) 1+ /HPF (Negative) 12/27/21 Unknown Urine Mucus Few /HPF 12/27/21 Unknown Urine HCG, Qual Negative (Negative) 12/27/21 11:50 Nasal Screen MRSA (PCR) Negative (Negative) 12/28/21 02:23 Microbiology: Microbiology 01/02/22 16:45 Abdomen Surgical Culture - Preliminary Jose/IV: Voiding Method Toilet Active Medications - Current Medications Current Medications: Generic Name Dose Route Start Last Admin Trade Name Freq PRN Reason Stop Dose Admin Acetaminophen 650 mg 12/27/21 17:00 12/29/21 21:39 Acetaminophen 325 Mg Tab PO 650 mg Q4H PRN Administration Pain MILD(1-3)/Fever >100.5/ZAPATA Albuterol 2.5 mg 12/27/21 20:00 Albuterol 2.5 Mg/3 Ml Nebu IH Q4HRT PRN Shortness Of Breath Fluconazole 200 mls @ 100 mls/hr 12/29/21 12:00 01/03/22 11:00 Diflucan IV Infused Q24HR FUNMI Infusion Protocol Sodium Chloride 1,000 mls @ 50 mls/hr 12/31/21 15:15 01/04/22 03:00 Nacl 0.9% 1000 Ml IV 50 mls/hr DIRECT FUNMI Administration Piperacillin Sod/Tazobactam Sod 4.5 gm in 100 mls @ 200 mls/hr 01/03/22 20:00 01/04/22 07:39 Zosyn/Ns 4.5gm/100ml IV Infused Q6HR FUNMI Infusion Protocol Ibuprofen 800 mg 12/31/21 11:43 12/31/21 12:10 Ibuprofen 800 Mg Tab PO 800 mg Q8H PRN Administration Pain, Mild (1-3) Insulin Human Lispro 0 unit 12/28/21 22:00 01/04/22 09:19 Insulin Lispro 100 Unit/Ml SUB-Q Not Given ACHS FNUMI Protocol Magnesium Hydroxide 30 ml 01/03/22 17:45 Magnesium Hydroxide (Mom) Oral Liqd Udc PO QDAY PRN Constipation Metformin HCl 500 mg 12/29/21 17:00 01/04/22 09:21 Metformin 500 Mg Tab PO 500 mg BIDDIAB FUNMI Administration Morphine Sulfate 2 mg 12/27/21 17:00 01/04/22 07:35 Morphine 2 Mg/1 Ml Inj IV 2 mg Q4H PRN Administration Pain, Moderate (4-6) Multivitamins 1 each 12/27/21 18:00 01/04/22 09:21 Multivitamins ,Therapeutic Tab PO 1 each DAILY FUNMI Administration Nicotine 14 mg 12/31/21 10:00 01/04/22 09:21 Nicotine 14 Mg/24 Hr Patch TD 14 mg QDAY FUNMI Administration Ondansetron HCl 4 mg 12/31/21 17:53 01/04/22 07:36 Ondansetron 4 Mg/2 Ml Inj IV 4 mg Q4H PRN Administration Nausea And Vomiting Sodium Chloride 10 ml 12/27/21 22:00 01/03/22 21:55 Sodium Chloride 0.9% 10 Ml Flush Syringe IV 10 ml BID FUNMI Administration Sodium Chloride 10 ml 12/27/21 17:00 Sodium Chloride 0.9% 10 Ml Flush Syringe IV PRN PRN LINE FLUSH Nutrition/Malnutrition Assess - Dietary Evaluation Nutrition/Malnutrition Findings: Nutrition Notes Start: 12/28/21 11:07 Freq: Status: Active Protocol: Document 01/01/22 18:36 KIP (Rec: 01/01/22 18:48 KIP [id number]) Nutrition Notes Initial or Follow up Brief Note Current Diet Consistent Carbohydrates Diet (since D 12/28), NPO (from 00:01). Height 5 ft 5 in Weight 102.2 kg Edgar Body Weight (kg) 56.81 BMI 37.5 Weight change and time frame 0.15 Kg body weight gain in 4 days reported. Weight Status Obese Subjective/Other Information RD consult for routine F/U on Dietary Advancement. Pt is now on PO, and PO intake of meals has been Fair (50-75 %), according to ADL notes. Pt will be on NPO from midnight on 01/02, due to drainage procedure. CT scan detected a second fluid deposit in the rectouterine space that might not be reachable from the percutaneous standpoint; will attempt a transgluteal drainage on 01/02. Pt is on Room Air, O2 saturation @ 97%, according to Vital Signs note. Percent of energy/protein needs met: Prescribed Consistent Carbohydrates Diet provides for energy/protein needs (2, 061 Kcal/91 g) during LOS. Is patient on ventilator? No Is Patient Ambulatory and/or Out of Bed Yes REE-([place]-ambulatory/OOB) [ 7425.769 [id number]] Kcal/Kg value to use for calculation 15 Approximate Energy Requirements Using 1533 kcal/Kg Calculation Used for Recommendations Kcal/kg Additional Notes Protein: 0.8-1 g/Kg AdjBW; 64- 80 g/day. Fluids: 1 ml/Kcal, or as per MD. Nutrition Intervention Change Diet Order: Continue Consistent Carbohydrates Diet, and resume after procedure, as tolerated . Follow-Up By: 01/08/22 Additional Comments When pertinent, continue monitoring food tolerance, %PO intake of meals, and BM.
[2022-01-04] MEDS: FLUCONAZOLE 400 MG 200 ML IV SCH (11:51)
--- NOTE | 2022-01-04 11:51 | Progress Note ---
Assessment and Plan Cultures: 12/27/2021 blood culture: No growth 12/27/2021 urine culture: Mixed ludwin 12/28/2021 IR drain culture: E.coli A/P: 21-year-old female with morbid obesity who underwent a laparoscopic bipin cystectomy and laparoscopic appendectomy on 12/10/2021, intraoperatively had a tear of the appendix with purulence in RLQ and postoperative course complicated by low-grade fevers, RLQ fluid abscess status post IR drainage on 12/14/2021 was doing well until recently she started developing fever increasing abdominal pain, now with: #Sepsis, secondary to intra-abdominal abscess: s/p laparoscopic cholecystectomy and laparoscopic appendectomy on 12/10/2021, drain placement by IR on 12/14/2021. Now s/p IR drain placement 12/28/2021. CT showed enhancing fluid collection with gas in the cul-de-sac, appendectomy bed and extension between rectus muscles anteriorly. Repeat CT 01/01/2022 showing anterior pelvic fluid collection appears resolved, cul-de-sac abscess appears unchanged. Underwent IR aspiration of pelvic fluid collection 01/02/2022, about 60 to 70 cc of purulent fluid was aspirated, drain was not placed due to the location. #Obesity #Diabetes mellitus Recs: -Agree with discharge on p.o. levofloxacin 750 mg daily plus Flagyl 500 mg twice daily for 10 days -outpt f/u with surgery for drain management -advised repeat CT in 10 to 14 days -ID clinic follow up PRN if she needs additional abx, including IV abx outpt. Contact info given to patient Will sign off. Please call with questions. Eden Buenrostro MD, FACP, [facility] O: [phone] F: [phone] C: [phone] Subjective Date of service: 01/04/22 Principal diagnosis: Intra-abdominal abscess Interval history: Denies any complaints. No fever. Going home with drain. Objective - Exam Narrative Exam: Physical Exam: Constitutional: Alert, cooperative. No acute distress Head, Ears, Nose: Normocephalic, atraumatic. External ears, nose normal Eyes: Conjunctivae/corneas clear. No icterus. No ptosis. Neck: Supple, no meningeal signs Cardiovascular: S1, S2 + Respiratory: Good air entry, clear to auscultation bilaterally GI: Soft, no tenderness; bowel sounds normal. No peritoneal signs. Drain + Musculoskeletal: No pedal edema, no cyanosis. Skin: No rash or abscess Hem/Lymphatic: No palpable cervical or supraclavicular nodes. No lymphangitis Psych: Mood ok. Affect normal Neurological: Awake, alert, oriented. No gross abnormality - Constitutional Vitals: Vital Signs Temp Pulse Resp BP Pulse Ox 98.3 F 95 H 18 135/92 94 01/03/22 21:42 01/03/22 21:42 01/03/22 21:42 01/03/22 21:42 01/04/22 09:43 Temperature -Last 24 Hours Temperature 98.3 F Temperature 99.3 F - Labs CBC & Chem 7: 01/02/22 04:55 01/02/22 04:55 Labs: Abnormal lab results 01/03/22 01/03/22 01/03/22 Range/Units 07:20 10:40 21:44 POC Glucose 119 H 119 H 125 H (70-105) mg/dL
[2022-01-04 13:45] VITALS: BP 140/82
--- NOTE | 2022-01-04 14:50 | Discharge Summary ---
Providers - Providers Date of Admission: 12/27/21 16:17 Date of discharge: 01/04/22 Attending physician: DIANA MORGAN 12/27/21 15:57 Consult to Interventional Radiology [CONS] Stat Consulting Provider: DEJAH BARLOW Reason For Exam: abscess Notified:: yes 12/29/21 09:11 Consult to Physician [CONS] Routine Comment: Consulting Provider: TING BAZAN Physician Instructions: Reason For Exam: intra-abdominal abscess Primary care physician: FRANTZ GONZALEZ MD Hospitalization Condition: Stable Hospital course: --Intra-abdominal abscess Current Visit: Yes Status: Acute At present pain fairly well controlled. Awaiting surgical intervention and consultation. IV fluid resuscitation and supportive care. Serial abdominal exam, CT scan abdomen and pelvis, complete s/p drain placement by IR on 12/28/2021 --pelvic fluid collection CT-guided aspiration of a pelvic fluid collection through a right transgluteal approach[01/02/2022] --Sepsis Intra-abdominal abscess, cultures positive for E. coli Continue IV Zosyn and Diflucan , ID following - Obesity hypoventilation syndrome Current Visit: Yes Status: Acute Balanced diet, increase physical activity discharge, outpatient pulmonary follow-up for sleep study. --Diabetes mellitus Current Visit: Yes Status: Acute At present fairly well controlled Accu-Chek 127 and 150 Consistent carbohydrate diet, Accu-Chek, hypoglycemia protocol, insulin protocol. --Obesity; BMI 37.5 -- DVT prophylaxis Current Visit: Yes Status: Acute SCD to bilateral lower extremities while in bed s/p Disposition: 30 STILL A PATIENT Final Discharge Diagnosis (Prints w/discharge instructions): Intra-abdominal abscess status post drain placement. discharge with TAMARA drain in place[per surgery recommendation]. Pelvic fluid collection: Status post needle aspiration. Sepsis due to abdominal abscess. Obesity; BMI 37.5. Obesity hypoventilation syndrome. Type 2 diabetes mellitus Time spent for discharge: 35 min Core Measure Documentation - Palliative Care Palliative Care/ Comfort Measures: Not Applicable - Core Measures Any of the following diagnoses?: none Exam - Constitutional Vitals: Temp Pulse Resp BP Pulse Ox 99.0 F 59 L 22 140/82 95 01/04/22 11:59 01/04/22 11:59 01/04/22 11:59 01/04/22 11:59 01/04/22 11:59 General appearance: Present: no acute distress, obese - EENT Eyes: Present: PERRL, EOM intact - Neck Neck: Present: supple, normal ROM - Respiratory Respiratory effort: normal Respiratory: bilateral: diminished, negative: rales, rhonchi, wheezing - Cardiovascular Rhythm: regular Heart Sounds: Present: S1 & S2 - Extremities Extremities: no ischemia, No edema - Abdominal General gastrointestinal: Present: soft, non-tender, non-distended, normal bowel sounds - Integumentary Integumentary: Present: clear, warm - Musculoskeletal Musculoskeletal: strength equal bilaterally, generalized weakness - Psychiatric Psychiatric: appropriate mood/affect, cooperative - Neurologic Neurologic: moves all extremities Plan Activity: no restrictions Diet: diabetic Special Instructions: smoking cessation Additional Instructions: TAMARA drain care per nurse instructions. Follow-up with surgeon Dr. Franco in 1 week, when he will remove the drain. Follow-up primary care physician in 1 week. Diet modification, exercise as tolerated and weight reduction when you are medically stable. If you have worsening symptoms contact MD or go to the nearest emergency room as needed. Repeat CT abdomen and pelvis in 10 to 14 days at PMD/surgeon's office Follow up with: FRANTZ GONZALEZ MD [Primary Care Provider] - 3-5 Days PHILIPP FRANCO MD [Staff Physician] - 7 Days TING BAZAN MD [Staff Physician] - 10 Days Prescriptions: metroNIDAZOLE [Flagyl] 500 mg PO Q12HR #20 tab Nicotine [Habitrol] 14 mg TD QDAY #30 patch levoFLOXacin [Levaquin] 750 mg PO QDAY #10 tablet Ibuprofen [Motrin 800 MG tab] 800 mg PO Q8H PRN #21 tablet PRN Reason: Pain, Mild (1-3) oxyCODONE /ACETAMINOPHEN [Percocet 5/325 mg] 1 tab PO Q6H PRN 3 Days #12 tablet PRN Reason: Pain, Moderate (4-6)
== END 2022-01-04 16:17 | disposition home or self-care (01) | DRG 871 ==
LOC: ED 08:03 → 3A 16:17
PROVIDERS: ADMIT Internal Medicine; ATTEND Internal Medicine
PROC: 0W9F30Z Drainage of Abdominal Wall with Drainage Device, Percutaneous Approach (ICD-10-PCS; principal; 2021-12-28)
PROC: 0W9J30Z Drainage of Pelvic Cavity with Drainage Device, Percutaneous Approach (ICD-10-PCS; 2022-01-02)
DX: A41.9 Sepsis, unspecified organism (principal); K65.1 Peritoneal abscess; E66.2 Morbid (severe) obesity with alveolar hypoventilation; E11.9 Type 2 diabetes mellitus without complications; E88.81 Metabolic syndrome and other insulin resistance; F17.200 Nicotine dependence, unspecified, uncomplicated; Z90.49 Acquired absence of other specified parts of digestive tract; Z83.3 Family history of diabetes mellitus; Z82.49 Family history of ischemic heart disease and other diseases of the circulatory system; Z68.37 Body mass index [BMI] 37.0-37.9, adult
CPT/HCPCS: 10160; 36415; 74177; 77012; 80048; 80053; 81001; 81025; 82140; 82962; 85025; 87040; 87076; 87086; 87116; 87186; 87641; 99406; G0378; J2274; Q9967; C1769; J0690; J1170; J1450; J1815; J1885; J1956; J2250; J2270; J2405; J2543; J3010; J7030

== ENCOUNTER 2022-03-07 14:03 | Emergency (ER) | payer MEDICAID | END 2022-03-07 17:32 | disposition left against medical advice (07) | LOC: ED 14:03 | DX: R10.9 Unspecified abdominal pain (principal); Z53.21 Procedure and treatment not carried out due to patient leaving prior to being seen by health care provider ==